=== PATIENT | female | born 1980 | race African-American/Black ===

== ENCOUNTER 2017-06-14 21:10 | Emergency (ER) | payer MEDICAID ==
[2017-06-14 21:19] VITALS: BP 135/87
[2017-06-15] MEDS ORDERED: PREDNISONE 20 MG TABLET PO ONE (00:16)
[2017-06-15] MEDS ORDERED: CLINDAMYCIN HCL 150 MG CAPSULE PO ONE (00:16)
--- NOTE | 2017-06-15 00:26 | ER Document Report ---
ED General - General Chief Complaint: Jaw Pain Stated Complaint: MOUTH PAIN Time Seen by Provider: 06/14/17 23:28 Notes: Patient is a 37-year-old female who presents with 2 weeks of left mandible pain. Does describe as a severe, constant, stabbing pain to the lower left mandible that is been getting worse since onset. She states that she also feels that there is an area of swelling just beneath the jaw to this region. She has not yet seen a dentist or primary care doctor regarding this concern. She denies any history of similar symptoms in the past. Nothing improves or worsens her pain. She denies any fever or constitutional symptoms. No difficulty breathing or swallowing. TRAVEL OUTSIDE OF THE [place] IN LAST 30 DAYS: No - Related Data Allergies/Adverse Reactions: Pork/Porcine Containing Products [Pork/Porcine Product Derivatives] Allergy ( Intermediate, Verified 06/14/17 22:41) Swelling of hands and/or feet No Known Drug Allergies Allergy (Verified 06/14/17 22:41) Past Medical History - General Information source: Patient - Social History Smoking Status: Former Smoker Chew tobacco use (# tins/day): No Frequency of alcohol use: None Drug Abuse: None Lives with: Family Family History: Reviewed & Not Pertinent Patient has suicidal ideation: No Patient has homicidal ideation: No - Past Medical History Cardiac Medical History: Reports: Hx Heart Attack - x1, "mild", Hx Pulmonary Embolism Renal/ Medical History: Denies: Hx Peritoneal Dialysis Past Surgical History: Reports: Hx Section - x1 - Immunizations Hx Diphtheria, Pertussis, Tetanus Vaccination: Yes Review of Systems - Review of Systems Notes: Constitutional: Negative for fever. HENT: Positive for jaw pain Eyes: Negative for visual changes. Cardiovascular: Negative for chest pain. Respiratory: Negative for shortness of breath. Gastrointestinal: Negative for abdominal pain, vomiting or diarrhea. Genitourinary: Negative for dysuria. Musculoskeletal: Negative for back pain. Skin: Negative for rash. Neurological: Negative for headaches, weakness or numbness. 10 point ROS negative except as marked above and in HPI. Physical Exam - Vital signs Vitals: Temp Pulse Resp BP Pulse Ox 98.1 F 70 16 135/87 H 98 06/14/17 21:16 06/14/17 21:16 06/14/17 21:16 06/14/17 21:16 06/14/17 21:16 Interpretation: Hypertensive Notes: PHYSICAL EXAMINATION: GENERAL: Well-appearing, well-nourished and in no acute distress. HEAD: Atraumatic, normocephalic. EYES: Pupils equal round and reactive to light, extraocular movements intact, sclera anicteric, conjunctiva are normal. ENT: nares patent, oropharynx clear without exudates. Moist mucous membranes. There is an impacted left lower wisdom tooth that appears infected NECK: Normal range of motion, supple without lymphadenopathy LUNGS: Breath sounds clear to auscultation bilaterally and equal. No wheezes rales or rhonchi. HEART: Regular rate and rhythm without murmurs ABDOMEN: Soft, nontender, normoactive bowel sounds. No guarding, no rebound. No masses appreciated. EXTREMITIES: Normal range of motion, no pitting or edema. No cyanosis. NEUROLOGICAL: No focal neurological deficits. Moves all extremities spontaneously and on command. PSYCH: Normal mood, normal affect. SKIN: Warm, Dry, normal turgor, no rashes or lesions noted. Course - Re-evaluation Re-evalutation: 06/15/17 00:22 Patient presents with what appears to be a single submandibular lymph node on the left that appears to be swollen. It is painful to palpation, mobile, and not significantly enlarged. I do not suspect acute malignancy. She does have an impacted wisdom tooth on the mandible on that side which appears to be infected and is possibly a source of this lymphadenopathy. She does not have any other obvious areas of lymphadenopathy. She has not had any weight loss. Vitals are within normal limits at time of presentation without fever, tachycardia or hypotension. I do not suspect a deep space abscess. Will start steroids and antibiotics, recommend dental follow-up and I have reviewed strict return precautions with the patient at length. - Vital Signs Vital signs: Temp Pulse Resp BP Pulse Ox 98.1 F 70 16 135/87 H 98 06/14/17 21:16 06/14/17 21:16 06/14/17 21:16 06/14/17 21:16 06/14/17 21:16 Discharge - Discharge Clinical Impression: Lymphadenopathy, Dental infection Condition: Good Disposition: HOME, SELF-CARE Additional Instructions: The area of swelling in you neck is a lymph node that is swollen likely due to an infected tooth. It does not appear to be related to cancer at this time. Take the antibiotics and steroids as prescribed. Please follow-up with the dentist at your earliest ability. Return for worsening pain, fever, weight loss , becoming unable to swallow, having difficulty breathing, or any other symptoms that are worrisome to you. Prescriptions: Clindamycin HCl 300 mg PO TID #30 capsule Prednisone [Deltasone 20 mg Tablet] 3 tab PO DAILY 5 Days tablet
[2017-06-15] MEDS ORDERED: IBUPROFEN 600 MG TABLET PO ONE (00:29)
== END 2017-06-15 00:55 | disposition home or self-care (01) ==
LOC: ER 21:10
DX: K04.7 Periapical abscess without sinus (principal); R59.0 Localized enlarged lymph nodes; K01.1 Impacted teeth; R68.84 Jaw pain; Z91.018 Allergy to other foods; Z87.891 Personal history of nicotine dependence; I25.2 Old myocardial infarction; Z86.711 Personal history of pulmonary embolism
CPT/HCPCS: 99283; J3490 ×2; J7512

== ENCOUNTER 2018-01-03 09:06 | Emergency (ER) | payer MEDICAID ==
[2018-01-03] MEDS ORDERED: ASPIRIN 81 MG TABLET, CHEWABLE PO ONE (09:31)
--- NOTE | 2018-01-03 10:06 | ER Document Report ---
ED Cardiac - General Chief Complaint: Chest Pain Stated Complaint: CHEST PAIN Time Seen by Provider: 01/03/18 09:36 Mode of Arrival: Ambulatory Information source: Patient TRAVEL OUTSIDE OF THE [place] IN LAST 30 DAYS: No - HPI Patient complains to provider of: Chest pain Notes: Patient is here with complaints of left posterior shoulder blade pain that radiates into her left anterior chest for the last 2 days. The pain is pleuritic in nature. It only hurts when she takes a deep breath. She does complain of feeling slightly short of breath. She denies any fever or cough. No nausea, vomiting, diarrhea. She denies any recent long trips, surgeries, trauma, leg pain or leg swelling, hormone use. She does have a former history of PE 2 in the past. She is currently not on anticoagulants. She states that her first pulmonary embolism was during bedrest and . Second time she had one was an unprovoked PE. She denies any abdominal pain at this time. No cough. She is a former smoker. She denies any history of high blood pressure, high cholesterol, diabetes, known CAD. She denies any other complaints at this time. - Related Data Allergies/Adverse Reactions: Pork/Porcine Containing Products [Pork/Porcine Product Derivatives] Allergy ( Intermediate, Verified 06/14/17 22:41) Swelling of hands and/or feet No Known Drug Allergies Allergy (Verified 06/14/17 22:41) Past Medical History - Social History Smoking Status: Unknown if Ever Smoked Family History: Reviewed & Not Pertinent - Past Medical History Cardiac Medical History: Reports: Hx Heart Attack - x1, "mild", Hx Pulmonary Embolism Renal/ Medical History: Denies: Hx Peritoneal Dialysis Past Surgical History: Reports: Hx Section - x1 - Immunizations Hx Diphtheria, Pertussis, Tetanus Vaccination: Yes Review of Systems - Review of Systems -: Yes All other systems reviewed and negative Physical Exam - Vital signs Vitals: Temp Pulse Resp BP Pulse Ox 98.5 F 65 16 121/74 100 01/03/18 09:12 01/03/18 09:12 01/03/18 09:12 01/03/18 09:12 01/03/18 09:12 - Notes Notes: GENERAL: alert, cooperative, nontoxic, no distress. HEAD: normocephalic, atraumatic EYES: conjunctiva pink without discharge, no external redness or swelling. EARS: no external swelling, no external redness NOSE: atraumatic, no external swelling MOUTH/THROAT: mucous membranes moist and pink, posterior pharynx without erythema, swelling, exudate. No trismus or drooling. NECK: soft, supple, full range of motion, no meningismus. CHEST: no distress, lungs clear and equal throughout. No wheezing, rales, rhonchi. CARDIAC: regular rate and rhythm, no murmur, normal capillary refill, normal pulses. No peripheral edema noted. ABDOMEN: Soft, nontender. BACK: full range of motion, no CVA tenderness. EXTREMITIES: full range of motion of all extremities. No redness, no swelling. NEURO: alert and oriented x 3, no focal deficits, full range of motion of all extremities. PYSCH: appropriate mood, affect. Patient is cooperative. SKIN: pink, warm, dry, no rash. Course - Re-evaluation Re-evalutation: 01/03/18 10:07 HEART SCORE: 1 points Low Score (0-3 points) Risk of MACE of 0.9-1.7%. 01/03/18 15:19 Patient is nontoxic appearing with stable vitals. Patient is here with complaints of left-sided posterior chest pain worse with taking a deep breath. Patient reports of prior history of PEs 2. She denies any recent trips or surgeries at this time. Patient has a heart score of 1. Her symptoms are very atypical for ACS. She has had 2 negative troponins and an unremarkable EKG. This point the patient can be discharged home with outpatient follow-up regarding chest pain. CTA of the chest shows no PE. No other acute abnormalities. Patient will follow up with her primary care doctor at the next available appointment, she was instructed to return the emergency department immediately for worsening pain, fever, difficulty breathing, or for any further concerns. The patient is noted to have elevated blood pressure during today's emergency department visit. The patient was informed of this finding. The patient was instructed that this may be related to pre-hypertension and requires further evaluation with a primary care provider. The patient has no hypertensive symptoms at this time. The patient's emergency department workup and current diagnosis were explained to the patient and or family. Follow-up instructions were provided. Medications if prescribed were discussed. Instructions for when to return to the emergency department including specific worrisome symptoms were discussed with the patient and/or family. - Vital Signs Vital signs: Temp Pulse Resp BP Pulse Ox 98.5 F 65 18 132/104 H 100 01/03/18 09:12 01/03/18 09:12 01/03/18 15:01 01/03/18 15:01 01/03/18 15:01 - Laboratory Result Diagrams: 01/03/18 10:14 01/03/18 10:14 Laboratory results interpreted by me: 01/03/18 10:14 RDW 14.1 H Plt Count 487 H - Diagnostic Test Radiology reviewed: Image reviewed, Reports reviewed - Chest x-ray negative. CTA of the chest negative. Discharge - Discharge Clinical Impression: Chest pain Qualifiers: Chest pain type: unspecified Qualified Code(s): R07.9 - Chest pain, unspecified Condition: Stable Disposition: HOME, SELF-CARE Instructions: Chest Pain of Unclear Cause ([facility]) Additional Instructions: Take medications as prescribed. Follow-up with your primary care doctor at the next available appointment for recheck. Follow-up sooner for worsening pain, fever, difficulty breathing, persistent vomiting, or for any further concerns. Your blood pressure was elevated during today's visit. Have this rechecked with your doctor. Prescriptions: Naproxen [Naprosyn] 500 mg PO BID #20 tablet Forms: Elevated Blood Pressure, Smoking Cessation Education Referrals: DARIAN FELICIANO DO [Primary Care Provider] - Follow up as needed
--- NOTE | 2018-01-03 10:09 | RADIOLOGY REPORT (SQ) ---
EXAM DESCRIPTION: CHEST SINGLE VIEW COMPLETED DATE/TIME: 01/03/2018 9:55 am REASON FOR STUDY: cp COMPARISON: 11/19/2014 EXAM PARAMETERS: NUMBER OF VIEWS: One view. TECHNIQUE: Single frontal radiographic view of the chest acquired. RADIATION DOSE: NA LIMITATIONS: None. FINDINGS: LUNGS AND PLEURA: No opacities, masses or pneumothorax. No pleural effusion. MEDIASTINUM AND HILAR STRUCTURES: No masses. Contour normal. HEART AND VASCULAR STRUCTURES: Heart normal in size. Normal vasculature. BONES: No acute findings. HARDWARE: None in the chest. OTHER: No other significant finding. IMPRESSION: NO ACUTE RADIOGRAPHIC FINDING IN THE CHEST. TECHNICAL DOCUMENTATION: JOB ID: [id number] [employer]- All Rights Reserved Reading location - IP/workstation name: [email or web address]
[2018-01-03 10:26] LABS: ABSOLUTE EOSINOPHILS # (AUTO) 0.1 10^3/uL (0.0-0.6); ABSOLUTE LYMPHOCYTES (AUTO) 1.3 10^3/uL (0.5-4.7); ABSOLUTE MONOCYTES (AUTO) 0.6 10^3/uL (0.1-1.4); ABSOLUTE NEUT (AUTO) 5.2 10^3/uL (1.7-8.2); BASOPHILS % (AUTO) 0.5 % (0-2); EOSINOPHILS % (AUTO) 0.9 % (0-6); HEMATOCRIT 36.6 % (36.0-47.0); HEMOGLOBIN 12.1 g/dL (12.0-15.5); LYMPHOCYTES % (AUTO) 17.9 % (13-45); MEAN CORPUSCULAR HEMOGLOBIN 29.9 pg (27.0-33.4); MEAN CORPUSCULAR VOLUME 91 fl (80-97); MONOCYTES % (AUTO) 8.1 % (3-13); PLATELET COUNT 487 10^3/uL (150-450); RED BLOOD COUNT 4.04 10^6/uL (3.72-5.28); RED CELL DISTRIBUTION WIDTH 14.1 % (11.5-14.0); SEGMENTED NEUTROPHILS % (AUTO) 72.6 % (42-78); TOTAL CELLS COUNTED % (AUTO) 100 %; WHITE BLOOD COUNT 7.2 10^3/uL (4.0-10.5)
[2018-01-03 10:38] LABS: ALANINE AMINOTRANSFERASE 16 U/L (9-52); ALBUMIN 4.1 g/dL (3.5-5.0); ALKALINE PHOSPHATASE 71 U/L (38-126); ANION GAP 10 (5-19); ASPARTATE AMINO TRANSFERASE 17 U/L (14-36); BILIRUBIN,DIRECT 0.2 mg/dL (0.0-0.4); BILIRUBIN,TOTAL 0.2 mg/dL (0.2-1.3); BLOOD UREA NITROGEN 10 mg/dL (7-20); CALCIUM 9.5 mg/dL (8.4-10.2); CARBON DIOXIDE 26 mmol/L (22-30); CHLORIDE 105 mmol/L (98-107); CREATINE KINASE 98 U/L (30-135); GLUCOSE 90 mg/dL (75-110); POTASSIUM 4.4 mmol/L (3.6-5.0); SODIUM 140.8 mmol/L (137-145); TOTAL PROTEIN 6.8 g/dL (6.3-8.2)
[2018-01-03 10:49] LABS: CREATINE KINASE MB 0.22 ng/mL (<4.55)
[2018-01-03 10:50] LABS: TROPONIN I < 0.012 ng/mL
--- NOTE | 2018-01-03 11:50 | RADIOLOGY REPORT (SQ) ---
EXAM DESCRIPTION: CTA CHEST COMPLETED DATE/TIME: 01/03/2018 11:29 am REASON FOR STUDY: cp, hx of pe x 2, no anticoags now chest pain COMPARISON: CT angio chest 07/11/2007, 11/17/2007, 01/26/2008 Chest films 10/28/2012, 01/03/2018 TECHNIQUE: CT scan of the chest performed using helical scanning technique with dynamic intravenous contrast injection. Images reviewed with lung, soft tissue and bone windows. Reconstructed coronal and sagittal MPR images reviewed. Additional 3 dimensional post-processing performed to develop Maximal Intensity Projection images (PR P). All images stored on PACS. All CT scanners at this facility use dose modulation, iterative reconstruction, and/or weight based d osing when appropriate to reduce radiation dose to as low as reasonably achievable (ALARA). [facility]: Dose Right [facility]: CareDose [facility]: Dose Right [facility]: Teradose 4D [facility]: MobiMagic CONTRAST TYPE AND DOSE: contrast/concentration: Isovue 370.00 mg/ml; Total Contrast Delivered: 79.0 ml; Total Saline Delivered: 90.0 ml Contrast bolus adequate for pulmonary arteries and aorta. RENAL FUNCTION: Creatinine 0.6 RADIATION DOSE: 36.83 . LIMITATIONS: None. FINDINGS: LUNGS AND PLEURA: No masses, infiltrates, pneumothorax. No pleural effusions, calcificati ons. AORTA AND GREAT VESSELS: No aneurysm. Contrast bolus not optimized for the aorta. HEART: No pericardial effusion. No significant coronary artery calcifications. PULMONARY ARTERIES: No emboli visualized in the main pulmonary arteries or the segmental branches. HILAR AND MEDIASTINAL STRUCTURES: No identified masses or abnormal nodes. HARDWARE: None in the chest. UPPER ABDOMEN: No significant findings. Limited exam. THYROID AND OTHER SOFT TISSUES: No masses. No adenopathy. BONES: No acute or significant finding. 3D MIPS: Confirm above findings. OTHER: No other significant finding. IMPRESSION: NORMAL CTA OF THE CHEST. NO PULMONARY EMBOLI. COMMENT: Quality ID # [id number]: Final reports with documentation of one or more dose reduction techniques (e.g., Automated exposure control, adjustment of the mA and/or kV according to patient size, use of iterative reconstruction technique) TECHNICAL DOCUMENTATION: JOB ID: [id number] [employer]- All Rights Reserved Reading location - IP/workstation name: [email or web address]
[2018-01-03] MEDS ORDERED: KETOROLAC TROMETHAMINE INJ/PF 30 MG/1 ML SDV IV ONE (12:37)
--- NOTE | 2018-01-03 12:49 | EKG REPORT ---
SEVERITY:- NORMAL ECG - SINUS RHYTHM : Confirmed by: Abner Nazario MD 03-Jan-2018 12:48:55
[2018-01-03 15:36] VITALS: BP 116/91
== END 2018-01-03 15:37 | disposition home or self-care (01) ==
LOC: ER 09:06
DX: R07.81 Pleurodynia (principal); M89.8X1 Other specified disorders of bone, shoulder; R06.02 Shortness of breath; R03.0 Elevated blood-pressure reading, without diagnosis of hypertension; I25.2 Old myocardial infarction; Z86.711 Personal history of pulmonary embolism; Z87.891 Personal history of nicotine dependence; Z91.018 Allergy to other foods
CPT/HCPCS: 93005; 99285; 96374; 36415; 82553; 82550; 85025; 80053; 84484; 71045; 71275; 93010; J1885

== ENCOUNTER 2018-02-23 15:39 | Emergency (ER) | payer MEDICAID ==
[2018-02-23] MEDS ORDERED: IBUPROFEN 800 MG TABLET PO ONE (16:27)
--- NOTE | 2018-02-23 16:28 | ER Document Report ---
ED Hand/Wrist Injury - General Chief Complaint: Hand Injury Stated Complaint: HAND INJURY Time Seen by Provider: 02/23/18 16:00 Mode of Arrival: Ambulatory Information source: Patient Notes: 38-year-old female presented ED for complaint of left hand and fingers pain after she was moving a [place] cabinet and it fell backwards catching her hand between the wall and the [place] cabinet. She states that this injury was yesterday but her hand is still hurting. Patient has full range of motion to the hand. But does complain of pain with movement. TRAVEL OUTSIDE OF THE [place] IN LAST 30 DAYS: No - HPI Injury to: Hand - And fingers Onset: Yesterday Where: Home, Indoors Timing: Still present Quality of pain: Achy, Pressure Severity: Moderate Pain Level: 3 Context: Other - States she cut the hand between the [place] cabinet in the wall - Related Data Allergies/Adverse Reactions: Pork/Porcine Containing Products [Pork/Porcine Product Derivatives] Allergy ( Intermediate, Verified 02/23/18 15:40) Swelling of hands and/or feet No Known Drug Allergies Allergy (Verified 02/23/18 15:40) Past Medical History - General Information source: Patient - Social History Smoking Status: Former Smoker Cigarette use (# per day): No Chew tobacco use (# tins/day): No Smoking Education Provided: No Frequency of alcohol use: None Drug Abuse: None Lives with: Alone - With children Family History: Reviewed & Not Pertinent Patient has suicidal ideation: No Patient has homicidal ideation: No - Past Medical History Cardiac Medical History: Reports: Hx Heart Attack - x1, "mild", Hx Pulmonary Embolism Pulmonary Medical History: Reports: None EENT Medical History: Reports: None Neurological Medical History: Reports: None Endocrine Medical History: Reports: None Renal/ Medical History: Reports: None Malignancy Medical History: Reports: None GI Medical History: Reports: None Musculoskeltal Medical History: Reports None Skin Medical History: Reports None Psychiatric Medical History: Reports: None Traumatic Medical History: Reports: None Infectious Medical History: Reports: None Past Surgical History: Reports: Hx Section - x1 - Immunizations Hx Diphtheria, Pertussis, Tetanus Vaccination: Yes Review of Systems - Review of Systems Constitutional: No symptoms reported EENT: No symptoms reported Cardiovascular: No symptoms reported Respiratory: No symptoms reported Gastrointestinal: No symptoms reported Genitourinary: No symptoms reported Female Genitourinary: No symptoms reported Musculoskeletal: Other - Pain and swelling to the left hand and fingers Skin: No symptoms reported Hematologic/Lymphatic: No symptoms reported Neurological/Psychological: No symptoms reported Physical Exam - Vital signs Vitals: Temp Pulse Resp BP Pulse Ox 98.3 F 68 18 140/95 H 97 02/23/18 15:48 02/23/18 15:48 02/23/18 15:48 02/23/18 15:48 02/23/18 15:48 Interpretation: Normal - General General appearance: Appears well, Alert - HEENT Head: Normocephalic, Atraumatic Eyes: Normal Pupils: PERRL - Respiratory Respiratory status: No respiratory distress Chest status: Nontender Breath sounds: Normal Chest palpation: Normal - Cardiovascular Rhythm: Regular Heart sounds: Normal auscultation Murmur: No - Abdominal Inspection: Normal Distension: No distension Bowel sounds: Normal Tenderness: Nontender Organomegaly: No organomegaly - Back Back: Normal, Nontender - Extremities General upper extremity: Normal color, Normal ROM, Normal temperature General lower extremity: Normal inspection, Nontender, Normal color, Normal ROM , Normal temperature, Normal weight bearing. No: Bo's sign Wrist: Tender. No: Abrasion, Axial load of thumb pain, Deformity, Dislocation, Ecchymosis, Instability, Laceration, Limited ROM - Pain with range of motion, Navicular tenderness Hand: Tender, No evidence of human bite, No evidence of FB, Swelling. No: Abrasion, Deformity, Dislocation, Ecchymosis, Instability, Laceration, Nail injury, Tendon deficit - Neurological Neuro grossly intact: Yes Cognition: Normal Orientation: AAOx4 [place] Coma Scale Eye Opening: Spontaneous [place] Coma Scale Verbal: Oriented [place] Coma Scale Motor: Obeys Commands [place] Coma Scale Total: 15 Speech: Normal Motor strength normal: LUE, RUE, LLE, RLE Sensory: Normal - Psychological Associated symptoms: Normal affect, Normal mood - Skin Skin Temperature: Warm Skin Moisture: Dry Skin Color: Normal Course - Re-evaluation Re-evalutation: 02/23/18 21:28 X-rays discussed with patient and written report of x-rays given to patient to follow-up with orthopedics and her primary doctor. Patient had radial pulses present with cap refills less than 3 seconds. Patient was able to move all of her fingers and her hand but with some pain. Patient did not have any snuffbox tenderness. - Vital Signs Vital signs: Temp Pulse Resp BP Pulse Ox 98.3 F 68 18 131/58 H 97 02/23/18 15:48 02/23/18 15:48 02/23/18 15:48 02/23/18 18:00 02/23/18 15:48 - Diagnostic Test Radiology reviewed: Image reviewed, Reports reviewed Procedures - Immobilization Left Wrist Time completed: 17:45 Immobilizer type: Cock-up Performed by: PCT Post-Proc Neuro Vasc Exam: Normal Alignment checked and good: Yes Discharge - Discharge Clinical Impression: Contusion of multiple sites of left hand and wrist Qualifiers: Encounter type: initial encounter Qualified Code(s): S60.222A - Contusion of left hand, initial encounter Condition: Stable Disposition: HOME, SELF-CARE Additional Instructions: CONTUSION: Your injury has resulted in a contusion -- a crushing of the deep tissues. No injury to important structures was detected during the physician's exam. Contusions vary in the amount of pain they cause, and in the length of time required for healing. Typically, the area will become bruised, and will remain painful to touch for two or three weeks. However, most patients are back to working and playing within a few days. After the initial period of rest and cold-packs, your symptoms (together with the doctor's recommendations) will determine how rapidly you can get back to full activity. Usually this means "do what feels okay, but don't do things that hurt." If re-examination was recommended, it's important to follow up as instructed. Call the doctor or return any time if pain increases, if swelling becomes severe, if you develop numbness or weakness in an injured extremity, or if any other alarming symptoms occur. USE OF TYLENOL (ACETAMINOPHEN): Acetaminophen may be taken for pain relief or fever control. It's much safer than aspirin, offering a wider range of "safe" dosages. It is safe during . Some brand names are Tylenol, Panadol, Datril, Anacin 3, Tempra, and Liquiprin. Acetaminophen can be repeated every four hours. The following are maximum recommended dosages: WEIGHT Dose Drops Elixir Chewable( 80mg) (LBS.) drprs=droppers tsp=teaspoon 6 40 mg 0.4 ml (1/2) 6-11 80 mg 0.8 ml (full) tsp 1 tab 12-16 120 mg 1 1/2 drprs 3/4 tsp 1 1/2 tabs 17-23 160 mg 2 drprs 1 tsp 2 tabs 24-30 240 mg 3 drprs 1 1/2 tsp 3 tabs 30-35 320 mg 2 tsp 4 tabs 36-41 360 mg 2 1/4 tsp 4 1/2 tabs 42-47 400 mg 2 1/2 tsp 5 tabs 48-53 480 mg 3 tsp 6 tabs 54-59 520 mg 3 1/4 tsp 6 1/2 tabs 60-64 560 mg 3 1/2 tsp 7 tabs 65-70 600 mg 3 3/4 tsp 7 1/2 tabs 71-76 640 mg 4 tsp 8 tabs 77-82 720 mg 4 1/2 tsp 9 tabs 83-88 800 mg 5 tsp 10 tabs >89 pounds or adults 650 mg to 900 mg Acetaminophen can be repeated every four hours. Maximum dose not to exceed 4000 mg a day. These maximum recommended dosages are slightly higher than the dosages written on the product container, but these dosages are very safe and below the toxic dosage for acetaminophen. SPLINT PRECAUTIONS: A splint has been placed. This will protect the area while healing begins. Your problem does NOT normally require a cast. It MUST, however, be held still! Keep the splint on ALL THE TIME until instructed to remove it by the doctor. As you begin to use the area, be careful. You shouldn't do anything which causes discomfort -- you may disturb the injury even with the splint in place. After the initial period of rest and elevation, if splint does not prevent pain when you move, come back. You may require placement of a different splint , or a cast. If there is unexpected severe pain, or numbness, discoloration, or swelling beyond the splint, you should return at once. If you feel that the splint has broken or become loose, come back. ICE & ELEVATION: Apply ice packs frequently against the painful area. Many different schedules are recommended, such as "20 minutes on, 20 minutes off" or "one hour ice, two hours rest." If you need to work, you may need to go longer between ice treatments. You should plan to have the area ice packed AT LEAST one- fourth of the time. The ice should be applied over the wrap, tape, or splint, or over a layer of cloth -- not directly against the skin. Some ice bags have a built-in cloth and can be put directly on the skin. Your injured part should be elevated as much as possible over the next 48 hours. Try to keep the injury above the level of the heart. Avoid use of the injured area. Elevation and rest will decrease the swelling. USE OF [id number] IBUPROFEN: Ibuprofen (Advil, Nuprin, Medipren, Motrin IB) is a medication for fever and pain control. In addition, it has anti- inflammatory effects which may be beneficial, especially in the treatment of injuries. It's best to take ibuprofen with food. Persons with ulcer disease or allergy to aspirin should notify their physician of this before taking ibuprofen. Ibuprofen can be given every four to six hours, for a total of four doses daily. Age Pain or fever dose Antiinflammatory dose 6-8 yr 200 mg (1 tab) 200 mg (1 tab) 9-11 yr 200 mg (1 tab) 200-400 mg (1-2 tab) 11-14 yr 200-400 mg (1-2 tab) 400 mg (2 tab) 15-adult 400 mg (2 tab) 600 mg (3 tab) FOLLOW-UP CARE: If you have been referred to a physician for follow-up care, call the physician s office for an appointment as you were instructed or within the next two days. If you experience worsening or a significant change in your symptoms, notify the physician immediately or return to the Emergency Department at any time for re-evaluation. Forms: Elevated Blood Pressure, Return to Work Referrals: DARIAN FELICIANO DO [Primary Care Provider] - Follow up as needed LEANDRO SUÁREZ MD [ACTIVE STAFF] - Follow up as needed
--- NOTE | 2018-02-23 17:05 | RADIOLOGY REPORT (SQ) ---
EXAM DESCRIPTION: HAND LEFT 3 VIEWS COMPLETED DATE/TIME: 02/23/2018 4:44 pm REASON FOR STUDY: pain and injury hand and wrist COMPARISON: 02/04/2015. EXAM PARAMETERS: NUMBER OF VIEWS: Three views. TECHNIQUE: AP, lateral and oblique radiographic images acquired of the left hand. LIMITATIONS: None. FINDINGS: MINERALIZATION: Normal. BONES: No acute fracture or dislocation. No worrisome bone lesions. JOINTS: No effusions. SOFT TISSUES: No soft tissue swelling. No foreign body. OTHER: No other significant finding. IMPRESSION: NEGATIVE STUDY OF THE LEFT HAND. NO RADIOGRAPHIC EVIDENCE OF ACUTE INJURY. TECHNICAL DOCUMENTATION: JOB ID: [id number] [employer]- All Rights Reserved Reading location - IP/workstation name: [email or web address]
--- NOTE | 2018-02-23 17:05 | RADIOLOGY REPORT (SQ) ---
EXAM DESCRIPTION: WRIST LEFT 3 VIEWS COMPLETED DATE/TIME: 02/23/2018 4:44 pm REASON FOR STUDY: pain and injury hand and wrist COMPARISON: 02/04/2015. NUMBER OF VIEWS: Three views. TECHNIQUE: AP, lateral, and oblique radiographic images acquired of the left wrist. LIMITATIONS: None. FINDINGS: MINERALIZATION: Normal. BONES: No acute fracture or dislocation. No worrisome bone lesions. Normal alignment. SOFT TISSUES: No soft tissue swelling. No foreign body. OTHER: No other significant finding. IMPRESSION: NEGATIVE STUDY OF THE LEFT WRIST. NO RADIOGRAPHIC EVIDENCE OF ACUTE INJURY. TECHNICAL DOCUMENTATION: JOB ID: [id number] [employer]- All Rights Reserved Reading location - IP/workstation name: [email or web address]
[2018-02-23 18:00] VITALS: BP 131/58
== END 2018-02-23 18:00 | disposition home or self-care (01) ==
LOC: ER 15:39
DX: S60.222A Contusion of left hand, initial encounter (principal); M79.642 Pain in left hand; M79.645 Pain in left finger(s); W23.0XXA Caught, crushed, jammed, or pinched between moving objects, initial encounter; Z87.891 Personal history of nicotine dependence
CPT/HCPCS: 99283; 73130; 73110; L3908; J3490

== ENCOUNTER 2018-04-19 11:11 | Emergency (ER) | payer MEDICAID ==
[2018-04-19 11:57] VITALS: BP 126/84
[2018-04-19] MEDS ORDERED: KETOROLAC TROMETHAMINE 60 MG/2 ML SDV IM ONE (13:20)
--- NOTE | 2018-04-19 13:28 | ER Document Report ---
ED Hand/Wrist Injury - General Chief Complaint: Finger Injury Stated Complaint: FINGER PAIN Time Seen by Provider: 04/19/18 13:11 Mode of Arrival: Ambulatory Information source: Patient Notes: 38-year-old female presents to ED for complaint of pain to her right index finger pain. She states about 8:00 this morning she dropped a couch on her hand while she was doing cleaning. She states she has not been able to get the ring off due to it being bent and that now the finger is swollen and painful. She has good cap refill to the finger. We were able to get the ring off of the finger. Patient is alert and oriented respirations regular and unlabored speaking in full sentences. TRAVEL OUTSIDE OF THE [place] IN LAST 30 DAYS: No - HPI Injury to: Ring finger Onset: This morning Quality of pain: Sharp, Throbbing Severity: Moderate Pain Level: 4 Context: Other - Patient dropped a couch on her finger - Related Data Allergies/Adverse Reactions: Pork/Porcine Containing Products [Pork/Porcine Product Derivatives] Allergy ( Intermediate, Verified 04/19/18 11:29) Swelling of hands and/or feet No Known Drug Allergies Allergy (Verified 04/19/18 11:29) Past Medical History - General Information source: Patient - Social History Smoking Status: Former Smoker Cigarette use (# per day): No Chew tobacco use (# tins/day): No Smoking Education Provided: No Frequency of alcohol use: None Drug Abuse: None Lives with: Alone - Children Family History: Reviewed & Not Pertinent Patient has suicidal ideation: No Patient has homicidal ideation: No - Past Medical History Cardiac Medical History: Reports: Hx Heart Attack - x1, "mild", Hx Pulmonary Embolism Pulmonary Medical History: Reports: None EENT Medical History: Reports: None Neurological Medical History: Reports: None Endocrine Medical History: Reports: None Renal/ Medical History: Reports: None Malignancy Medical History: Reports: None GI Medical History: Reports: None Musculoskeletal Medical History: Reports None Skin Medical History: Reports None Psychiatric Medical History: Reports: None Traumatic Medical History: Reports: None Infectious Medical History: Reports: None Past Surgical History: Reports: Hx Section - x1 - Immunizations Hx Diphtheria, Pertussis, Tetanus Vaccination: Yes Review of Systems - Review of Systems Constitutional: No symptoms reported EENT: No symptoms reported Cardiovascular: No symptoms reported Respiratory: No symptoms reported Gastrointestinal: No symptoms reported Genitourinary: No symptoms reported Female Genitourinary: No symptoms reported Musculoskeletal: Other - Pain to the right index finger where a couch fell on her finger when she had a ring on the ring was bent the ring was stuck on her finger we did remove the ring and give it to the patient Skin: No symptoms reported Hematologic/Lymphatic: No symptoms reported Neurological/Psychological: No symptoms reported Physical Exam - Vital signs Vitals: Temp Pulse Resp BP Pulse Ox 98.6 F 64 16 126/84 H 100 04/19/18 11:55 04/19/18 11:55 04/19/18 11:55 04/19/18 11:55 04/19/18 11:55 Interpretation: Normal - General General appearance: Appears well, Alert - HEENT Head: Normocephalic, Atraumatic Eyes: Normal Pupils: PERRL - Respiratory Respiratory status: No respiratory distress Chest status: Nontender Breath sounds: Normal Chest palpation: Normal - Cardiovascular Rhythm: Regular Heart sounds: Normal auscultation Murmur: No - Abdominal Inspection: Normal Distension: No distension Bowel sounds: Normal Tenderness: Nontender Organomegaly: No organomegaly - Back Back: Normal, Nontender - Extremities General upper extremity: Normal inspection, Nontender, Normal color, Normal ROM , Normal temperature General lower extremity: Normal inspection, Nontender, Normal color, Normal ROM , Normal temperature, Normal weight bearing. No: Bo's sign - Neurological Neuro grossly intact: Yes Cognition: Normal Orientation: AAOx4 [place] Coma Scale Eye Opening: Spontaneous [place] Coma Scale Verbal: Oriented [place] Coma Scale Motor: Obeys Commands [place] Coma Scale Total: 15 Speech: Normal Motor strength normal: LUE, RUE, LLE, RLE Sensory: Normal - Psychological Associated symptoms: Normal affect, Normal mood - Skin Skin Temperature: Warm Skin Moisture: Dry Skin Color: Normal Course - Re-evaluation Re-evalutation: 04/19/18 20:18 To discuss with patient and written report given to patient. Patient was treated with Toradol in the emergency G room and instructed to use ibuprofen at home. Patient states she would use her own ibuprofen she did not need a prescription for it. Patient was discharged home to follow-up with her primary doctor. When she came in she did have rings on this hand. All of the rings were removed and given to the patient. - Vital Signs Vital signs: Temp Pulse Resp BP Pulse Ox 98.6 F 64 16 126/84 H 100 04/19/18 11:55 04/19/18 11:55 04/19/18 11:55 04/19/18 11:55 04/19/18 11:55 - Diagnostic Test Radiology reviewed: Image reviewed, Reports reviewed Discharge - Discharge Clinical Impression: Contusion of right ring finger Qualifiers: Encounter type: initial encounter Damage to nail status: without damage Qualified Code(s): S60.041A - Contusion of right ring finger without damage to nail, initial encounter Condition: Stable Disposition: HOME, SELF-CARE Additional Instructions: CONTUSION: Your injury has resulted in a contusion -- a crushing of the deep tissues. No injury to important structures was detected during the physician's exam. Contusions vary in the amount of pain they cause, and in the length of time required for healing. Typically, the area will become bruised, and will remain painful to touch for two or three weeks. However, most patients are back to working and playing within a few days. After the initial period of rest and cold-packs, your symptoms (together with the doctor's recommendations) will determine how rapidly you can get back to full activity. Usually this means "do what feels okay, but don't do things that hurt." If re-examination was recommended, it's important to follow up as instructed. Call the doctor or return any time if pain increases, if swelling becomes severe, if you develop numbness or weakness in an injured extremity, or if any other alarming symptoms occur. USE OF TYLENOL (ACETAMINOPHEN): Acetaminophen may be taken for pain relief or fever control. It's much safer than aspirin, offering a wider range of "safe" dosages. It is safe during . Some brand names are Tylenol, Panadol, Datril, Anacin 3, Tempra, and Liquiprin. Acetaminophen can be repeated every four hours. The following are maximum recommended dosages: WEIGHT Dose Drops Elixir Chewable( 80mg) (LBS.) drprs=droppers tsp=teaspoon 6 40 mg 0.4 ml (1/2) 6-11 80 mg 0.8 ml (full) tsp 1 tab 12-16 120 mg 1 1/2 drprs 3/4 tsp 1 1/2 tabs 17-23 160 mg 2 drprs 1 tsp 2 tabs 24-30 240 mg 3 drprs 1 1/2 tsp 3 tabs 30-35 320 mg 2 tsp 4 tabs 36-41 360 mg 2 1/4 tsp 4 1/2 tabs 42-47 400 mg 2 1/2 tsp 5 tabs 48-53 480 mg 3 tsp 6 tabs 54-59 520 mg 3 1/4 tsp 6 1/2 tabs 60-64 560 mg 3 1/2 tsp 7 tabs 65-70 600 mg 3 3/4 tsp 7 1/2 tabs 71-76 640 mg 4 tsp 8 tabs 77-82 720 mg 4 1/2 tsp 9 tabs 83-88 800 mg 5 tsp 10 tabs >89 pounds or adults 650 mg to 900 mg Acetaminophen can be repeated every four hours. Maximum dose not to exceed 4000 mg a day. These maximum recommended dosages are slightly higher than the dosages written on the product container, but these dosages are very safe and below the toxic dosage for acetaminophen. ICE & ELEVATION: Apply ice packs frequently against the painful area. Many different schedules are recommended, such as "20 minutes on, 20 minutes off" or "one hour ice, two hours rest." If you need to work, you may need to go longer between ice treatments. You should plan to have the area ice packed AT LEAST one- fourth of the time. The ice should be applied over the wrap, tape, or splint, or over a layer of cloth -- not directly against the skin. Some ice bags have a built-in cloth and can be put directly on the skin. Your injured part should be elevated as much as possible over the next 48 hours. Try to keep the injury above the level of the heart. Avoid use of the injured area. Elevation and rest will decrease the swelling. USE OF [id number]-MPICLIO IBUPROFEN: Ibuprofen (Advil, Nuprin, Medipren, Motrin IB) is a medication for fever and pain control. In addition, it has anti- inflammatory effects which may be beneficial, especially in the treatment of injuries. It's best to take ibuprofen with food. Persons with ulcer disease or allergy to aspirin should notify their physician of this before taking ibuprofen. Ibuprofen can be given every four to six hours, for a total of four doses daily. Age Pain or fever dose Antiinflammatory dose 6-8 yr 200 mg (1 tab) 200 mg (1 tab) 9-11 yr 200 mg (1 tab) 200-400 mg (1-2 tab) 11-14 yr 200-400 mg (1-2 tab) 400 mg (2 tab) 15-adult 400 mg (2 tab) 600 mg (3 tab) FOLLOW-UP CARE: If you have been referred to a physician for follow-up care, call the physician s office for an appointment as you were instructed or within the next two days. If you experience worsening or a significant change in your symptoms, notify the physician immediately or return to the Emergency Department at any time for re-evaluation. Forms: Elevated Blood Pressure Referrals: DARIAN FELICIANO DO [Primary Care Provider] - Follow up as needed
--- NOTE | 2018-04-19 14:09 | RADIOLOGY REPORT (SQ) ---
EXAM DESCRIPTION: HAND RIGHT 3 VIEWS COMPLETED DATE/TIME: 04/19/2018 1:49 pm REASON FOR STUDY: pain and injury COMPARISON: 10/01/2013 EXAM PARAMETERS: NUMBER OF VIEWS: Three views. TECHNIQUE: AP, lateral and oblique radiographic images acquired of the right hand. LIMITATIONS: None. FINDINGS: MINERALIZATION: Normal. BONES: No acute fracture or dislocation. No worrisome bone lesions. JOINTS: No effusions. SOFT TISSUES: No soft tissue swelling. No foreign body. OTHER: No other significant finding. IMPRESSION: NEGATIVE STUDY OF THE RIGHT HAND. NO RADIOGRAPHIC EVIDENCE OF ACUTE INJURY. TECHNICAL DOCUMENTATION: JOB ID: [id number] [employer]- All Rights Reserved Reading location - IP/workstation name: [email or web address]
== END 2018-04-19 14:20 | disposition home or self-care (01) ==
LOC: ER 11:11
DX: S60.041A Contusion of right ring finger without damage to nail, initial encounter (principal); M79.644 Pain in right finger(s); W20.8XXA Other cause of strike by thrown, projected or falling object, initial encounter; I25.2 Old myocardial infarction; Z86.711 Personal history of pulmonary embolism; Z87.891 Personal history of nicotine dependence
CPT/HCPCS: 99283; 96372; 73130; J1885

== ENCOUNTER 2018-05-05 20:33 | Emergency (ER) | payer MEDICAID ==
--- NOTE | 2018-05-05 20:55 | EKG REPORT ---
SEVERITY:- BORDERLINE ECG - SINUS RHYTHM PROBABLE LEFT ATRIAL ABNORMALITY : Confirmed by: David Wells 05-May-2018 20:54:44
[2018-05-05] MEDS ORDERED: NORMAL SALINE 1000 ML 1,000 ML IV ONE (21:48)
[2018-05-05] MEDS ORDERED: MORPHINE SULFATE 10 MG/ML INJ IV ONE (21:48)
--- NOTE | 2018-05-05 21:51 | ER Document Report ---
ED Cardiac - General TRAVEL OUTSIDE OF THE [place] IN LAST 30 DAYS: No - HPI Patient complains to provider of: Chest pain, Shortness of breath Was the onset of pain: Gradual Is the pain a: New problem Chest pain location: Axillary, Pleuritic Quality of pain: Pressure, Sharp, Stabbing Severity now: Severe Severity at worst: Severe Pain level currently: 5 Chest pain precipitating factors: At Rest Positive cardiac history: No Associated symptoms: Shortness of breath Exacerbated by: Deep breaths Relieved by: Nothing Similar symptoms previously: Yes Recently seen / treated by doctor: No <SELENA RICE - Last Filed: 05/06/18 00:27> <CHRISTIANO WINN - Last Filed: 05/06/18 02:14> - General Chief Complaint: Chest Pain Stated Complaint: CHEST PAIN Time Seen by Provider: 05/05/18 21:42 - HPI Notes: Patient is a 38-year-old female presenting to the emergency room today complaining of sharp left-sided chest pain of 3 days duration, symptoms are worse when she takes a deep breath and are reminiscent of when she had a pulmonary embolus in 2006, this occurred when she was and on bed rest, she is not currently , denies smoking, she does not take any oral hormone therapy, no recent surgeries, injuries or periods of immobilization, she is not currently on any blood thinners (SELENA RICE) - Related Data Allergies/Adverse Reactions: Pork/Porcine Containing Products [Pork/Porcine Product Derivatives] Allergy ( Intermediate, Verified 04/19/18 11:29) Swelling of hands and/or feet No Known Drug Allergies Allergy (Verified 04/19/18 11:29) Past Medical History - General Information source: Patient - Social History Smoking Status: Never Smoker Family History: Reviewed & Not Pertinent - Past Medical History Cardiac Medical History: Reports: Hx Heart Attack - x1, "mild", Hx Pulmonary Embolism Renal/ Medical History: Denies: Hx Peritoneal Dialysis Past Surgical History: Reports: Hx Section - x1 - Immunizations Hx Diphtheria, Pertussis, Tetanus Vaccination: Yes <SELENA RICE - Last Filed: 05/06/18 00:27> Review of Systems - Review of Systems Constitutional: No symptoms reported EENT: No symptoms reported Cardiovascular: Chest pain Respiratory: Short of breath Gastrointestinal: No symptoms reported Genitourinary: No symptoms reported Female Genitourinary: No symptoms reported Musculoskeletal: No symptoms reported Skin: No symptoms reported Hematologic/Lymphatic: No symptoms reported Neurological/Psychological: No symptoms reported -: Yes All other systems reviewed and negative <SELENA RICE - Last Filed: 05/06/18 00:27> Physical Exam - Vital signs Interpretation: Normal - General General appearance: Appears well, Alert - HEENT Head: Normocephalic, Atraumatic Eyes: Normal Pupils: PERRL - Respiratory Respiratory status: No respiratory distress Chest status: Tender - to palpate left lateral chest wall Breath sounds: Normal Chest palpation: Normal - Cardiovascular Rhythm: Regular Heart sounds: Normal auscultation Murmur: No - Abdominal Inspection: Normal Distension: No distension Bowel sounds: Normal Tenderness: Nontender Organomegaly: No organomegaly - Back Back: Normal, Nontender - Extremities General upper extremity: Normal inspection, Nontender, Normal color, Normal ROM , Normal temperature General lower extremity: Normal inspection, Nontender, Normal color, Normal ROM , Normal temperature, Normal weight bearing. No: Bo's sign - Neurological Neuro grossly intact: Yes Cognition: Normal Orientation: AAOx4 Marlen Coma Scale Eye Opening: Spontaneous Marlen Coma Scale Verbal: Oriented Marlen Coma Scale Motor: Obeys Commands [place] Coma Scale Total: 15 Speech: Normal Motor strength normal: LUE, RUE, LLE, RLE Sensory: Normal - Psychological Associated symptoms: Normal affect, Normal mood - Skin Skin Temperature: Warm Skin Moisture: Dry Skin Color: Normal <SELENA RICE - Last Filed: 05/06/18 00:27> - Vital signs Vitals: BP 115/61 05/05/18 18:59 Course - Laboratory Result Diagrams: 05/05/18 22:30 05/05/18 22:30 - EKG Interpretation by [facility] EKG shows normal: Sinus rhythm Rate: Normal Rhythm: NSR <SELENA RICE - Last Filed: 05/06/18 00:27> - Laboratory Result Diagrams: 05/05/18 22:30 05/05/18 23:31 <CHRISTIANO WINN - Last Filed: 05/06/18 02:14> - Re-evaluation Re-evalutation: 05/06/18 00:[address] Winn, pending lab and CTA results (SELENA RICE) 05/06/18 02:12 Patient is a 38-year-old female who came in complaining of reproducible left chest wall pain that is worse with movement and deep breathing. Patient has a history of PE. CT is not showing any evidence for pulmonary embolus or pneumonia. CT was read as small pleural effusions. On reviewing CT, this does not seem to be significant. EKG within normal limits. Troponin is negative. Patient has reproducible chest pain on reevaluation that is worse with movement. She takes photographs for living. Patient was given pain medication and has had some relief. She will be discharged home with Lidoderm patches, Flexeril, and a work note. Of note, patient was slightly hypokalemic. Offered to give potassium. Patient states that she will eat bananas and high potassium foods when she gets home. She is mostly concerned about her chest pain and that it was something dangerous. She will follow up with her primary care doctor. Stable for discharge. Return if any worsening or concerning symptoms. Understands and agrees with plan. (CHRISTIANO WINN) - Vital Signs Vital signs: Temp Pulse Resp BP Pulse Ox 98.4 F 72 14 122/89 H 99 05/05/18 20:53 05/05/18 20:53 05/06/18 01:01 05/06/18 01:01 05/06/18 01:01 - Laboratory Laboratory results interpreted by me: 05/05/18 05/05/18 22:30 23:31 Hgb 11.4 L Hct 34.3 L RDW 14.9 H Plt Count 567 H Potassium 3.3 L Chloride 113 H BUN 6 L Calcium 7.3 L Total Protein 5.5 L Albumin 2.9 L Discharge <SELENA RICE - Last Filed: 05/06/18 00:27> <CHRISTIANO WINN - Last Filed: 05/06/18 02:14> - Discharge Clinical Impression: Hypokalemia Chest pain Qualifiers: Chest pain type: unspecified Qualified Code(s): R07.9 - Chest pain, unspecified Condition: Stable Disposition: HOME, SELF-CARE Instructions: Chest Pain of Unclear Cause ([facility]), Chest Wall Pain ([facility]), Hypokalemia ([facility]) Prescriptions: Cyclobenzaprine HCl [Flexeril 10 Mg Tablet] 10 mg PO BIDP PRN #20 tablet PRN Reason: Lidocaine [Lidoderm 5% (700 mg) Transdermal Patch] 1 patch TP DAILY #30 adh..patch Forms: Return to Work Referrals: DARIAN FELICIANO DO [NO LOCAL MD] - 05/07/18 Scribe Attestation: 05/06/18 02:14 I personally performed the services described in the documentation, reviewed and edited the documentation which was dictated to the scribe in my presence, and it accurately records my words and actions. (CHRISTIANO WINN)
[2018-05-05 22:57] LABS: ABSOLUTE BASOPHILS # (AUTO) 0.1 10^3/uL (0.0-0.2); ABSOLUTE EOSINOPHILS # (AUTO) 0.2 10^3/uL (0.0-0.6); ABSOLUTE MONOCYTES (AUTO) 0.6 10^3/uL (0.1-1.4); ABSOLUTE NEUT (AUTO) 6.7 10^3/uL (1.7-8.2); BASOPHILS % (AUTO) 0.9 % (0-2); EOSINOPHILS % (AUTO) 2.2 % (0-6); HEMATOCRIT 34.3 % (36.0-47.0); HEMOGLOBIN 11.4 g/dL (12.0-15.5); LYMPHOCYTES % (AUTO) 21.2 % (13-45); MEAN CORPUSCULAR HEMOGLOBIN 30.5 pg (27.0-33.4); MEAN CORPUSCULAR HGB CONC 33.2 g/dL (32.0-36.0); MEAN CORPUSCULAR VOLUME 92 fl (80-97); MONOCYTES % (AUTO) 6.4 % (3-13); PLATELET COUNT 567 10^3/uL (150-450); RED BLOOD COUNT 3.74 10^6/uL (3.72-5.28); RED CELL DISTRIBUTION WIDTH 14.9 % (11.5-14.0); SEGMENTED NEUTROPHILS % (AUTO) 69.3 % (42-78); TOTAL CELLS COUNTED % (AUTO) 100 %; WHITE BLOOD COUNT 9.7 10^3/uL (4.0-10.5)
[2018-05-05 23:02] LABS: INTERNATIONAL RATION (INR) 0.93; PROTHROMBIN TIME 12.9 SEC (11.4-15.4)
[2018-05-06] MEDS ORDERED: HYDROMORPHONE HCL INJ/PF 2 MG/ML AMPULE IV ONE (00:26)
[2018-05-06 01:05] LABS: ALANINE AMINOTRANSFERASE 21 U/L (9-52); ALBUMIN 2.9 g/dL (3.5-5.0); ALKALINE PHOSPHATASE 56 U/L (38-126); ANION GAP 8 (5-19); ASPARTATE AMINO TRANSFERASE 15 U/L (14-36); BILIRUBIN,DIRECT 0.2 mg/dL (0.0-0.4); BILIRUBIN,TOTAL 0.2 mg/dL (0.2-1.3); BLOOD UREA NITROGEN 6 mg/dL (7-20); CALCIUM 7.3 mg/dL (8.4-10.2); CARBON DIOXIDE 22 mmol/L (22-30); CHLORIDE 113 mmol/L (98-107); GLUCOSE 75 mg/dL (75-110); POTASSIUM 3.3 mmol/L (3.6-5.0); TOTAL PROTEIN 5.5 g/dL (6.3-8.2)
--- NOTE | 2018-05-06 01:38 | RADIOLOGY REPORT (SQ) ---
EXAM DESCRIPTION: CT CHEST ANGIOGRAPHY WITHOUT THEN WITH IV CONTRAST COMPLETED DATE/TME: 05/06/2018 00:00 CLINICAL HISTORY: 38 years, Female, SOB COMPARISON: 01/03/2018. TECHNIQUE: 518 Images stored on PACS. All CT scanners at this facility use dose modulation, iterative reconstruction, and/or weight based dosing when appropriate to reduce radiation dose to as low as reasonably achievable (ALARA). [facility]: Dose Right [facility]: CareDose [facility]: Dose Right [facility]: Teradose 4D [facility]: [employer] LIMITATIONS: None. FINDINGS: The aorta is normal in caliber without dissection or rupture. No evidence of pericardial effusion. No significant thoracic adenopathy. Atelectasis in the lung bases. Trace pleural effusions bilaterally. There are scattered upper abdominal and mesenteric lymph nodes. IMPRESSION: Atelectasis in the lung bases with small bilateral pleural effusions left greater than right No evidence aortic dissection or pulmonary embolus Scattered upper abdominal lymph nodes TECHNICAL DOCUMENTATION: Quality ID # [id number]: Final reports with documentation of one or more dose reduction techniques (e.g., Automated exposure control, adjustment of the mA and/or kV according to patient size, use of iterative reconstruction technique) 2010 [employer]- All Rights Reserved
[2018-05-06] MEDS ORDERED: HYDROCODONE/ACETAMINOPHEN 5-325 MG (6 TAB/ER DISP) PO PRN (01:55)
[2018-05-06 01:59] VITALS: BP 122/89
== END 2018-05-06 02:07 | disposition home or self-care (01) ==
LOC: ER 20:33
DX: E87.6 Hypokalemia (principal); R07.9 Chest pain, unspecified; R06.02 Shortness of breath; Z86.711 Personal history of pulmonary embolism; I25.2 Old myocardial infarction
CPT/HCPCS: 93005; 99285; 96361; 96374; 96375; 36415; 84703; 85025; 85610; 85730; 80053; 84484; 71275; 93010; J2270; J1170; J7030

== ENCOUNTER 2018-08-22 22:52 | Emergency (ER) | payer MEDICAID ==
[2018-08-22 23:08] VITALS: BP 143/90
[2018-08-22] MEDS ORDERED: OXYCODONE-ACETAMINOPHEN 5-325 MG TABLET PO ONE (23:50)
[2018-08-22] MEDS ORDERED: ONDANSETRON 4 MG TAB.RAPDIS PO ONE (23:50)
--- NOTE | 2018-08-22 23:53 | ER Document Report ---
ED Medical Screen (RME) - General Chief Complaint: Fall Stated Complaint: FALL/PAIN Time Seen by Provider: 08/22/18 23:50 Notes: 38-year-old female chief complaint of falling and landing on a step on her lower back/tailbone. Denies any other injuries. Denies numbness, incontinence , she was able to urinate earlier. Denies , reports LMP within the past month. TRAVEL OUTSIDE OF THE [place] IN LAST 30 DAYS: No - Related Data Allergies/Adverse Reactions: Pork/Porcine Containing Products [Pork/Porcine Product Derivatives] Allergy ( Intermediate, Verified 04/19/18 11:29) Swelling of hands and/or feet No Known Drug Allergies Allergy (Verified 04/19/18 11:29) Past Medical History - Past Medical History Cardiac Medical History: Reports: Hx Heart Attack - x1, "mild", Hx Pulmonary Embolism Renal/ Medical History: Denies: Hx Peritoneal Dialysis Past Surgical History: Reports: Hx Section - x1 - Immunizations Hx Diphtheria, Pertussis, Tetanus Vaccination: Yes History of Influenza Vaccine for 06/2017 - 11/2017 Season: No Physical Exam - Vital signs Vitals: Temp Pulse Resp BP Pulse Ox 97.7 F 74 18 143/90 H 97 08/22/18 23:07 08/22/18 23:07 08/22/18 23:07 08/22/18 23:07 08/22/18 23:07 - General General appearance: Other - Crying quietly, has difficulty sitting down - Back Back: Tender - Tender over the lower lumbar and over the sacral area, no swelling or signs of trauma, unremarkable back exam otherwise Course - Vital Signs Vital signs: Temp Pulse Resp BP Pulse Ox 97.7 F 74 18 143/90 H 97 08/22/18 23:07 08/22/18 23:07 08/22/18 23:07 08/22/18 23:07 08/22/18 23:07
--- NOTE | 2018-08-23 00:41 | RADIOLOGY REPORT (SQ) ---
EXAM DESCRIPTION: XR SACRUM COCCYX 2 OR MORE VIEWS COMPLETED DATE/TME: 08/22/2018 23:50 CLINICAL HISTORY: 38 years, Female, fall on step, pain TECHNICAL DATA: Three x-ray views of the sacrum and coccyx were performed on 08/23/2018 at 12:17 AM. COMPARISONS: None FINDINGS: There is no evidence of fracture or dislocation. There is no significant arthritis or degenerative change. No focal lytic or sclerotic bone lesions are seen. Bone mineralization is normal No focal soft tissue abnormalities are identified. IMPRESSION: No evidence of acute osseous injury involving the sacrum and coccyx.
--- NOTE | 2018-08-23 00:51 | RADIOLOGY REPORT (SQ) ---
EXAM DESCRIPTION: XR LUMBAR SPINE ANTEROPOSTERIOR, LATERAL, AND OBLIQUES COMPLETED DATE/TME: 08/22/2018 23:50 CLINICAL HISTORY: 38 years, Female, fall on step, pain TECHNICAL DATA: Five x-ray views of the lumbar spine were performed. Comparison: None. FINDINGS: Five lumbar type vertebrae are identified. The vertebral body height and intervertebral disc space height are normal. There is slight levoscoliosis. There is sclerosis along the iliac portion of the left sacroiliac joint and to a lesser degree the right sacroiliac joint consistent with osteitis condensans ilii. There are no lytic bone lesions. There is no evidence of fracture or subluxation. There are no significant degenerative changes of the lumbar spine. The facet joints are unremarkable. The pedicles appear intact. Bone mineralization is normal. There are multiple pelvic phleboliths. IMPRESSION: 1. No evidence of acute osseous abnormality involving the lumbar spine. 2. 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 3. Slight levoscoliosis.
[2018-08-23] MEDS ORDERED: HYDROCODONE/ACETAMINOPHEN 5-325 MG (6 TAB/ER DISP) PO PRN (02:02)
--- NOTE | 2018-08-23 02:02 | ER Document Report ---
HPI - HPI Patient complains to provider of: fall, lower back/tailbone pain Time Seen by Provider: 08/22/18 23:50 Pain Level: 5 Context: Patient is a 38-year-old female with chief complaint of falling and landing on a step on her lower back/tailbone. Denies any other injuries. Denies numbness , incontinence, she was able to urinate earlier. Denies , reports LMP within the past month. - REPRODUCTIVE Reproductive: DENIES: : - DERM Skin Color: Normal Past Medical History - General Information source: Patient - Social History Smoking Status: Never Smoker Chew tobacco use (# tins/day): No Frequency of alcohol use: None Drug Abuse: None Lives with: Family Family History: Reviewed & Not Pertinent Patient has suicidal ideation: No Patient has homicidal ideation: No - Past Medical History Cardiac Medical History: Reports: Hx Pulmonary Embolism Renal/ Medical History: Denies: Hx Peritoneal Dialysis Past Surgical History: Reports: Hx Section - x1 - Immunizations Hx Diphtheria, Pertussis, Tetanus Vaccination: Yes Vertical Provider Document - CONSTITUTIONAL General Appearance: WD/WN, Mild Distress - Patient appears to be in pain, she is tearful, she is not in severe distress - INFECTION CONTROL TRAVEL OUTSIDE OF THE [place] IN LAST 30 DAYS: No - HEENT HEENT: Atraumatic, Normocephalic - NECK Neck: Normal Inspection - RESPIRATORY Respiratory: Breath Sounds Normal - CARDIOVASCULAR Cardiovascular: Regular Rate, Regular Rhythm - GI/ABDOMEN Gastrointestinal: Abdomen Soft, Abdomen Non-Tender - BACK Back: negative: Normal Inspection - Tender over the lower lumbar midline and lower paraspinal lumbar areas, tender over these tailbone. No swelling, bruising, wounds noted. No saddle anesthesia. Normal upper and lower extremity range of motion, normal strength, normal distal neurovascular exam. Course - Re-evaluation Re-evalutation: Patient initially very tearful, having difficulty sitting down. She ambulates easily. I do not see any bruising or swelling, no open wounds, she does not have any neurological deficits. Patient was provided with pain medication, imaging performed of the lower back, sacrum, coccyx. Incidental findings only, no acute findings. On reevaluation patient much much more comfortable. Still no concerning deficits seen on exam or reported. I discussed results with patient in detail including incidental findings, discussed treatment, follow-up , return precautions in detail. Provide with work-release on request. Patient states understanding and agreement. - Vital Signs Vital signs: Temp Pulse Resp BP Pulse Ox 97.7 F 74 18 143/90 H 97 08/22/18 23:07 08/22/18 23:07 08/22/18 23:07 08/22/18 23:07 08/22/18 23:07 Discharge - Discharge Clinical Impression: Sacral pain Fall Qualifiers: Encounter type: initial encounter Qualified Code(s): W19.XXXA - Unspecified fall, initial encounter Lower back pain Qualifiers: Chronicity: acute Back pain laterality: bilateral Sciatica presence: without sciatica Qualified Code(s): M54.5 - Low back pain Condition: Stable Disposition: HOME, SELF-CARE Additional Instructions: Your x-rays do not show any concerning abnormalities regarding your injury today. This appears to be soft tissue and possibly bony bruising only. Pain should resolve with time, take medications as prescribed if needed, consider sitting on padded "doughnut" or similar device to help with symptoms. You can apply heat to your lower back. Rest. Your x-ray shows incidental findings of osteitis condensans ilii (on the left greater than the right) and slight levoscoliosis (slight curvature of your spine to the left). Follow-up with primary care. Return to the emergency department for any concerning symptoms including numbness, inability to urinate, accidentally having a bowel movement, or any other concerning or worsening symptoms. Prescriptions: Naproxen [Naprosyn 375 Mg Tablet] 375 mg PO BID #20 tablet Forms: Return to Work
== END 2018-08-23 02:21 | disposition home or self-care (01) ==
LOC: ER 22:52
DX: M53.3 Sacrococcygeal disorders, not elsewhere classified (principal); M54.5 Low back pain; W10.9XXA Fall (on) (from) unspecified stairs and steps, initial encounter
CPT/HCPCS: 99283; 72220; 72110; S0119

== ENCOUNTER 2018-08-26 11:16 | Emergency (ER) | payer MEDICAID ==
[2018-08-26] MEDS ORDERED: OXYCODONE-ACETAMINOPHEN 5-325 MG TABLET PO ONE (11:43)
--- NOTE | 2018-08-26 11:47 | ER Document Report ---
HPI - HPI Patient complains to provider of: Fall, buttock pain Time Seen by Provider: 08/26/18 11:31 Onset: Other - 5 days ago Onset/Duration: Persistent Quality of pain: Sharp Pain Level: 5 Context: Patient states she slipped on steps and landed on her buttocks 5 days ago. Patient was seen here 4 days ago after the injury. Patient complains of worsening pain and inability to sit comfortably. Patient does have an appointment with her primary doctor in 4 days but complains of worsening pain. Associated Symptoms: Other - Sacral pain Exacerbated by: Sitting, Movement, Walking Relieved by: Denies Similar symptoms previously: No Recently seen / treated by doctor: No - ROS ROS below otherwise negative: Yes Systems Reviewed and Negative: Yes All other systems reviewed and negative - CONSTITUTIONAL Constitutional: DENIES: Fever - NEURO Neurology: DENIES: Weakness - GASTROINTESTINAL Gastrointestinal: DENIES: Nausea - REPRODUCTIVE Reproductive: DENIES: : - MUSCULOSKELETAL Musculoskeletal: REPORTS: Back Pain - DERM Skin Color: Normal Skin Problems: None Past Medical History - General Information source: Patient - Social History Smoking Status: Never Smoker Frequency of alcohol use: None Drug Abuse: None Occupation: Housekeeping Lives with: Spouse/Significant other Family History: Reviewed & Not Pertinent - Past Medical History Cardiac Medical History: Reports: Hx Heart Attack - x1, "mild", Hx Pulmonary Embolism Renal/ Medical History: Denies: Hx Peritoneal Dialysis Past Surgical History: Reports: Hx Section - x1 - Immunizations Hx Diphtheria, Pertussis, Tetanus Vaccination: Yes Vertical Provider Document - CONSTITUTIONAL Agree With Documented VS: Yes Exam Limitations: No Limitations General Appearance: WD/WN, No Apparent Distress - INFECTION CONTROL TRAVEL OUTSIDE OF THE [place] IN LAST 30 DAYS: No - HEENT HEENT: Atraumatic, Normocephalic - NECK Neck: Normal Inspection - RESPIRATORY Respiratory: Breath Sounds Normal, No Respiratory Distress - CARDIOVASCULAR Cardiovascular: Regular Rate, Regular Rhythm - BACK Back: Abnormal Inspection - Patient with sacral tenderness and tenderness to upper portion of gluteal cleft, no swelling, no ecchymosis Notes: No spinal lumbar midline tenderness step-off or deformity, bilat SI joint tenderness - MUSCULOSKELETAL/EXTREMETIES Musculoskeletal/Extremeties: MACAROL ABRAHAM - NEURO Level of Consciousness: Awake, Alert, Appropriate Motor/Sensory: No Motor Deficit - DERM Integumentary: Warm, Dry, No Rash Course - Re-evaluation Re-evalutation: 08/26/[address] report findings with patient. Patient encouraged to follow-up with orthopedics for further management. The patient presents with low back pain without signs of spinal cord compression, cauda equina syndrome, infection , aneurysm, or other serious etiology. The patient is neurologically intact. Given the extremely risk of these diagnoses further testing and evaluation for these possibilities does not appear to be indicated at this time. Patient has been instructed to return if the symptoms worsen or change in any way. - Vital Signs Vital signs: Temp Pulse Resp BP Pulse Ox 97.8 F 77 16 135/94 H 97 08/26/18 11:20 08/26/18 11:20 08/26/18 11:20 08/26/18 11:20 08/26/18 11:20 - Diagnostic Test Radiology reviewed: Reports reviewed Discharge - Discharge Clinical Impression: Sacral pain, Sacroiliitis, Coccyx pain Condition: Stable Disposition: HOME, SELF-CARE Instructions: Coccyx Injury ([facility]), Ice Packs ([facility]), Low Back Pain ([facility]), Oral Narcotic Medication ([facility]) Additional Instructions: Return immediately for any new or worsening symptoms Followup with your primary care provider, call tomorrow to make a followup appointment Follow-up with orthopedics for further evaluation, call tomorrow for an appointment Prescriptions: Oxycodone HCl/Acetaminophen [Percocet 5-325 mg Tablet] 1 tab PO ASDIR PRN #15 tablet PRN Reason: Forms: Return to Work Referrals: WALKER TESFAYE MD [Primary Care Provider] - Follow up as needed [facility] [Provider Group] - Follow up as needed
--- NOTE | 2018-08-26 13:34 | RADIOLOGY REPORT (SQ) ---
EXAM DESCRIPTION: CT PELVIS WITHOUT COMPLETED DATE/TIME: 08/26/2018 1:12 pm REASON FOR STUDY: fall, sacral pain COMPARISON: None. TECHNIQUE: CT scan of the pelvis performed without intravenous or oral contrast. Images reviewed wi th soft tissue and bone windows. Reconstructed coronal and sagittal MPR images reviewed. All images stored on PACS. All CT scanners at this facility use dose modulation, iterative reconstruction, and/or weight based d osing when appropriate to reduce radiation dose to as low as reasonably achievable (ALARA). [facility]: Dose Right [facility]: CareDose [facility]: Dose Right [facility]: Teradose 4D [facility]: [employer] RADIATION DOSE: CT Rad equipment meets quality standard of care and radiation dose reduction techniq ues were employed. CTDIvol: 31.8 mGy. DLP: 862 mGy-cm. mGy. LIMITATIONS: None. FINDINGS: PELVIC BONES: No acute fracture. No worrisome bone lesions. SI joint arthropathy. VISUALIZED SPINE: No acute findings. HIP(S): No acute fracture or dislocation. No worrisome bone lesions. PELVIC SOFT TISSUES: No significant findings. EXTRAPELVIC SOFT TISSUES: No significant findings. OTHER: No other significant finding. IMPRESSION: No fracture. TECHNICAL DOCUMENTATION: JOB ID: [id number] Quality ID # [id number]: Final reports with documentation of one or more dose reduction techniques (e.g., Au tomated exposure control, adjustment of the mA and/or kV according to patient size, use of iterative reconstruction technique) 2010 [employer]- All Rights Reserved Reading location - IP/workstation name: [email or web address]
--- NOTE | 2018-08-26 13:45 | RADIOLOGY REPORT (SQ) ---
EXAM DESCRIPTION: CT LUMBAR SPINE WITHOUT COMPLETED DATE/TIME: 08/26/2018 1:12 pm REASON FOR STUDY: fall, sacral pain COMPARISON: Lumbar spine x-ray 08/23/2018. TECHNIQUE: Axial images acquired through the lumbar spine without intravenous contrast. Images revi ewed with lung, soft tissue and bone windows. Reconstructed coronal and sagittal MPR images reviewed . All images stored on PACS. All CT scanners at this facility use dose modulation, iterative reconstruction, and/or weight based d osing when appropriate to reduce radiation dose to as low as reasonably achievable (ALARA). [facility]: Dose Right [facility]: CareDose [facility]: Dose Right [facility]: Teradose 4D [facility]: [employer] RADIATION DOSE: mGy. LIMITATIONS: None. FINDINGS: SEGMENTATION: Normal. No transitional anatomy. ALIGNMENT: Normal. VERTEBRAL BODIES: No fractures. No dislocation. No acute findings. DISCS: There is mild multilevel degenerative disc disease. PEDICLES, TRANSVERSE PROCESSES: No fractures. No dislocation. No acute findings. FACETS, POSTERIOR ELEMENTS: No fractures. No dislocation. HARDWARE: None in the spine. VISUALIZED RIBS: No fractures. SOFT TISSUES: No significant or acute finding in adjacent soft tissues. OTHER: There is increased sclerosis at the sacroiliac joints. IMPRESSION: 1. No acute fracture of the lumbar spine. 2. Increased sclerosis at the sacroiliac joints, may be seen with sacroiliitis. TECHNICAL DOCUMENTATION: JOB ID: [id number] MD-64 Quality ID # [id number]: Final reports with documentation of one or more dose reduction techniques (e.g., Au tomated exposure control, adjustment of the mA and/or kV according to patient size, use of iterative reconstruction technique) 2010 [employer]- All Rights Reserved Reading location - IP/workstation name: [email or web address]
[2018-08-26 14:28] VITALS: BP 130/89
== END 2018-08-26 14:20 | disposition home or self-care (01) ==
LOC: ER 11:16
DX: M46.1 Sacroiliitis, not elsewhere classified (principal); M53.3 Sacrococcygeal disorders, not elsewhere classified; W10.9XXA Fall (on) (from) unspecified stairs and steps, initial encounter
CPT/HCPCS: 72131; 72192; 81025; 99284

== ENCOUNTER 2018-09-23 15:55 | Emergency (ER) | payer MEDICAID ==
--- NOTE | 2018-09-23 16:27 | ER Document Report ---
ED Medical Screen (RME) - General Chief Complaint: Dog Bite Stated Complaint: DOG BITE Time Seen by Provider: 09/23/18 16:22 Mode of Arrival: Ambulatory Information source: Patient TRAVEL OUTSIDE OF THE [place] IN LAST 30 DAYS: No - HPI Patient complains to provider of: dog bite Onset: Yesterday - pt. states she was bitten by pit bull last night. Now area is draining clear fluid. Tet- UTD - Related Data Allergies/Adverse Reactions: Pork/Porcine Containing Products [Pork/Porcine Product Derivatives] Allergy (Intermediate, Verified 04/19/18 11:29) Swelling of hands and/or feet No Known Drug Allergies Allergy (Verified 04/19/18 11:29) Past Medical History - Past Medical History Cardiac Medical History: Reports: Hx Heart Attack - x1, "mild", Hx Pulmonary Embolism Renal/ Medical History: Denies: Hx Peritoneal Dialysis Past Surgical History: Reports: Hx Section - x1 - Immunizations Hx Diphtheria, Pertussis, Tetanus Vaccination: Yes History of Influenza Vaccine for 06/2017 - 11/2017 Season: No Physical Exam - Vital signs Vitals: Temp Pulse Resp BP Pulse Ox 98.2 F 72 14 128/82 H 99 09/23/18 16:02 09/23/18 16:02 09/23/18 16:02 09/23/18 16:02 09/23/18 16:02 Course - Vital Signs Vital signs: Temp Pulse Resp BP Pulse Ox 98.2 F 72 14 128/82 H 99 09/23/18 16:02 09/23/18 16:02 09/23/18 16:02 09/23/18 16:02 09/23/18 16:02 Doctor's Discharge - Discharge Referrals: WALKER TESFAYE MD [Primary Care Provider] - Follow up as needed
[2018-09-23] MEDS ORDERED: AMOXICILLIN TR/POT CLAVULANATE 500-125 MG TAB PO ONE (17:18)
[2018-09-23] MEDS ORDERED: DIPH/PERTUSS(ACELL)/TETANUS VAC/PF 0.5 ML SYR (>=10YO) IM ONE (17:18)
[2018-09-23] MEDS ORDERED: AMOXICILLIN TRIHYDRATE 500 MG CAPSULE PO ONE (17:18)
--- NOTE | 2018-09-23 17:23 | ER Document Report ---
HPI - HPI Time Seen by Provider: 09/23/18 16:22 Pain Level: 4 Notes: Patient is an otherwise healthy 38-year-old female who presents with chief complaint of dog bite to her right thigh. She reports this occurred last night by a neighborhood stray dog. She reports her immunizations are not up-to-date, unknown immunization status on the dog. She does state that the dog comes around frequently and was acting normally. Nursing staff initiated animal control bite form. - CONSTITUTIONAL Constitutional: DENIES: Fever, Chills - REPRODUCTIVE Reproductive: DENIES: : Past Medical History - General Information source: Patient - Social History Smoking Status: Never Smoker Chew tobacco use (# tins/day): No Frequency of alcohol use: None Drug Abuse: None Family History: Reviewed & Not Pertinent Patient has suicidal ideation: No Patient has homicidal ideation: No - Past Medical History Cardiac Medical History: Reports: Hx Heart Attack - x1, "mild", Hx Pulmonary Embolism Renal/ Medical History: Denies: Hx Peritoneal Dialysis Past Surgical History: Reports: Hx Section - x1 - Immunizations Hx Diphtheria, Pertussis, Tetanus Vaccination: Yes Vertical Provider Document - CONSTITUTIONAL Notes: PHYSICAL EXAMINATION: GENERAL: Well-appearing, well-nourished and in no acute distress. HEAD: Atraumatic, normocephalic. EYES: Pupils equal round extraocular movements intact, conjunctiva are normal. ENT: Nares patent NECK: Normal range of motion LUNGS: No respiratory distress Musculoskeletal: Normal range of motion NEUROLOGICAL: Normal speech, normal gait. PSYCH: Normal mood, normal affect. SKIN: Warm, Dry, normal turgor, no rashes or lesions noted. Superficial dog bite noted to patient's right thigh on the lateral surface. No surrounding erythema, no active bleeding. - INFECTION CONTROL TRAVEL OUTSIDE OF THE [place] IN LAST 30 DAYS: No Course - Re-evaluation Re-evalutation: Patient's examination is consistent with dog bite. Does not appear to be infected at this time. Will place patient on Augmentin and give strict ED return precautions. - Vital Signs Vital signs: Temp Pulse Resp BP Pulse Ox 98.2 F 72 14 128/82 H 99 09/23/18 16:02 09/23/18 16:02 09/23/18 16:02 09/23/18 16:02 09/23/18 16:02 Discharge - Discharge Clinical Impression: Dog bite Qualifiers: Encounter type: initial encounter Qualified Code(s): W54.0XXA - Bitten by dog, initial encounter Condition: Stable Disposition: HOME, SELF-CARE Additional Instructions: Animal Bites Animal bites are often heavily contaminated with bacteria. In spite of thorough cleansing and proper treatment, these wounds frequently become infected. Bite wounds of the hands are especially prone to complications. Bites are dressed, if possible. Large wounds may require suturing after internal cleansing. Because of infection risk, some large wounds must remain unstitched. Your doctor is trained to advise you on the best treatment for your bite. Call the doctor at once if the wound becomes red, swollen, warm, increasingly painful, or if it begins to drain. Danger signs also include red streaks up the involved extremity, swollen glands in the groin or under the arm, or fever and chills. The risk of rabies from domestic animals is very low. Bats, sick animals, and wild animals may expose you to rabies. The physician, or the health department, will inform you if you will need to receive the rabies vaccine. Your Tdap was updated today. Please take the Augmentin as prescribed, finish the entire course even if your symptoms improve. Dog bites have a high probability of getting infected so it is very important that you take all the antibiotics. Change the dressing at least twice daily. Clean with soap and water. Return for a wound recheck in 2-3 days, sooner if worsening. Prescriptions: Amox Tr/Potassium Clavulanate [Augmentin 875-125 mg Tablet] 1 tab PO BID #20 tablet Referrals: WALKER TESFAYE MD [Primary Care Provider] - Follow up as needed
[2018-09-23 18:51] VITALS: BP 136/98
== END 2018-09-23 18:53 | disposition home or self-care (01) ==
LOC: ER 15:55
DX: S70.371A Other superficial bite of right thigh, initial encounter (principal); W54.0XXA Bitten by dog, initial encounter
CPT/HCPCS: 99283; 90471; 90715; J3490

== ENCOUNTER 2018-12-08 12:25 | Emergency (ER) | payer MEDICAID ==
--- NOTE | 2018-12-08 12:53 | ER Document Report ---
HPI - HPI Patient complains to provider of: Painful knot right lateral thigh Time Seen by Provider: 12/08/18 12:48 Onset: Other - Since dog bite in September Onset/Duration: Persistent Quality of pain: Sharp, Throbbing Severity: Moderate Pain Level: 4 Associated Symptoms: Other - Painful ambulation Exacerbated by: Sitting, Standing, Movement, Walking Relieved by: Denies Similar symptoms previously: Yes Recently seen / treated by doctor: Yes - ROS ROS below otherwise negative: Yes - CONSTITUTIONAL Constitutional: DENIES: Fever, Chills - EENT EENT: DENIES: Sore Throat, Ear Pain, Nasal Drainage-Clear, Nasal Drainage- Purulent, Congestion, Eye problems - NEURO Neurology: DENIES: Headache, Weakness, Vision blurred, Dizzinesss / Vertigo - CARDIOVASCULAR Cardiovascular: DENIES: Chest pain - RESPIRATORY Respiratory: DENIES: Trouble Breathing, Coughing - GASTROINTESTINAL Gastrointestinal: DENIES: Abdominal Pain, Nausea, Patient vomiting, Diarrhea, Constipation, Black / Bloody Stools - URINARY Urinary: DENIES: Dysuria, Urgency, Frequency - REPRODUCTIVE Reproductive: DENIES: :, Postmenopausal, Abnormal bleeding / discharge - MUSCULOSKELETAL Musculoskeletal: REPORTS: Extremity pain - Right thigh - DERM Skin Color: Normal Skin Problems: None Past Medical History - General Information source: Patient - Social History Smoking Status: Current Every Day Smoker Cigarette use (# per day): Yes - 2 Black and mild cigars a day Chew tobacco use (# tins/day): No Smoking Education Provided: Yes - 4 minutes Frequency of alcohol use: Social Drug Abuse: None Occupation: None at this time Lives with: Family - Her children Family History: Reviewed & Not Pertinent Patient has suicidal ideation: No Patient has homicidal ideation: No - Past Medical History Cardiac Medical History: Reports: Hx Heart Attack - x1, "mild", Hx Hypertension, Hx Pulmonary Embolism Pulmonary Medical History: Reports: None EENT Medical History: Reports: None Neurological Medical History: Reports: None Endocrine Medical History: Reports: None Renal/ Medical History: Reports: None Malignancy Medical History: Reports: None GI Medical History: Reports: None Musculoskeletal Medical History: Reports None Skin Medical History: Reports None Psychiatric Medical History: Reports: None Traumatic Medical History: Reports: None Infectious Medical History: Reports: None Past Surgical History: Reports: Hx Section - x1 - Immunizations Immunizations up to date: Yes Hx Diphtheria, Pertussis, Tetanus Vaccination: Yes Vertical Provider Document - CONSTITUTIONAL Agree With Documented VS: Yes Exam Limitations: No Limitations General Appearance: WD/WN - INFECTION CONTROL TRAVEL OUTSIDE OF THE [place] IN LAST 30 DAYS: No - HEENT HEENT: Atraumatic, Normal ENT Exam, Normocephalic, PERRLA - NECK Neck: Normal Inspection, Supple - RESPIRATORY Respiratory: Breath Sounds Normal, No Respiratory Distress, Chest Non-Tender - CARDIOVASCULAR Cardiovascular: Regular Rate, Regular Rhythm - GI/ABDOMEN Gastrointestinal: Abdomen Soft, Abdomen Non-Tender, No Organomegaly, Normal Bowel Sounds - BACK Back: Normal Inspection - MUSCULOSKELETAL/EXTREMETIES Musculoskeletal/Extremeties: Tender, Edema, Eccymosis - NEURO Level of Consciousness: Awake, Alert, Appropriate Motor/Sensory: No Motor Deficit, No Sensory Deficit, No Pronator Drift Deep Tendon Reflexes: 2+ - DERM Integumentary: Warm, Dry, No Rash Course - Vital Signs Vital signs: Temp Pulse Resp BP Pulse Ox 98.7 F 89 18 136/86 H 100 12/08/18 12:30 12/08/18 12:30 12/08/18 12:30 12/08/18 12:30 12/08/18 12:30 - Diagnostic Test Radiology reviewed: Image reviewed, Reports reviewed Discharge - Discharge Clinical Impression: painful knot to right lateral thigh Condition: Stable Disposition: HOME, SELF-CARE Instructions: Family Physicians / Practices Additional Instructions: You were seen today for a painful knot to the right lateral thigh after a dog bite in September. The ultrasound does not show an abscess, foreign body, or any swelling to the area. I have given you a written report as well as a CD of the ultrasound for you to take to your primary care doctor for any follow-up she may recommend. You could try spandex shorts to get compression to the area to see if that would help with your discomfort. Acetaminophen Acetaminophen may be taken for pain relief or fever control. It's much safer than aspirin, offering a wider range of "safe" dosages. It is safe during . Some brand names are Tylenol, Panadol, Datril, Anacin 3, Tempra, and Liquiprin. Acetaminophen can be repeated every four hours. The following are maximum recommended dosages: WEIGHT Dose Drops Elixir Chewable(80mg) (LBS.) drprs=droppers tsp=teaspoon 6 40 mg .4 ml (1/2) 6-11 80 mg .8 ml (full) 1/2 tsp 1 tab 12-16 120 mg 1 1/2 drprs 3/4 tsp 1 1/2 tabs 17-23 160 mg 2 drprs 1 tsp 2 tabs 24-30 240 mg 3 drprs 1 1/2 tsp 3 tabs 30-35 320 mg 2 tsp 4 tabs 36-41 360 mg 2 1/4 tsp 4 1/2 tabs 42-47 400 mg 2 1/2 tsp 5 tabs 48-53 480 mg 3 tsp 6 tabs 54-59 520 mg 3 1/4 tsp 6 1/2 tabs 60-64 560 mg 3 1/2 tsp 7 tabs 65-70 600 mg 3 3/4 tsp 7 1/2 tabs 71-76 640 mg 4 tsp 8 tabs 77-82 720 mg 4 1/2 tsp 9 tabs 83-88 800 mg 5 tsp 10 tabs >89 pounds or adults 650 mg to 900 mg Acetaminophen can be repeated every four hours. Maximum daily dose not to exceed 4000 mg. These maximum recommended dosages are slightly higher than the dosages written on the product container, but these dosages are very safe and well below the toxic dosage for acetaminophen. Ibuprofen Ibuprofen is an excellent, safe drug for pain control. In addition, it has potent antiinflammatory effects which are beneficial, especially in the treatment of injuries, arthritis, or tendonitis. It's best to take ibuprofen with food. Persons with ulcer disease or allergy to aspirin should notify their physician of this before taking ibuprofen. Take the medication exactly as prescribed. Don't take additional doses unless instructed to do so by your doctor. If you develop wheezing, shortness of breath, hives, faintness, stomach pain, vomiting, or dark black stools, return for re-evaluation at once. Ice Packs Apply ice packs frequently against the painful area. Many different schedules are recommended, such as "20 minutes on, 20 minutes off" or "one hour ice, two hours rest." If you need to work, you may need to go longer between ice treatments. You should plan to have the area ice packed AT LEAST one fourth of the time. The ice should be applied over the wrap, tape, or splint, or over a layer of cloth -- not directly against the skin. Some ice bags have a built-in cloth and can be put directly on the skin. FOLLOW-UP CARE: If you have been referred to a physician for follow-up care, call the physicians office for an appointment as you were instructed or within the next two days. If you experience worsening or a significant change in your symptoms, notify the physician immediately or return to the Emergency Department at any time for re-evaluation. Forms: Smoking Cessation Education, Elevated Blood Pressure Referrals: WALKER TESFAYE MD [ACTIVE STAFF] - Follow up as needed
--- NOTE | 2018-12-08 13:30 | RADIOLOGY REPORT (SQ) ---
EXAM DESCRIPTION: U/S EXTREMITY NONVASCULAR LTD COMPLETED DATE/TIME: 12/08/2018 1:25 pm REASON FOR STUDY: right thigh knot from previous dog bite COMPARISON: None. TECHNIQUE: Dynamic and static grayscale images acquired of the localized site of clinical concern an d recorded on PACS. Additional selected color Doppler and spectral images recorded. SITE OF CONCERN: Lateral right thigh. LIMITATIONS: None. FINDINGS: SKIN AND SUBCUTANEOUS TISSUES: No masses. No fluid collections. No edema. No foreign desiree s. DEEP SOFT TISSUES/MUSCLES: No masses. No fluid collections. No edema. OTHER: No other significant finding. IMPRESSION: NO SOFT TISSUE MASS, FLUID COLLECTION, OR FOREIGN BODY. TECHNICAL DOCUMENTATION: JOB ID: [id number] [employer]- All Rights Reserved Reading location - IP/workstation name: [email or web address]
[2018-12-08 14:00] VITALS: BP 118/82
== END 2018-12-08 14:08 | disposition home or self-care (01) ==
LOC: ER 12:25
DX: R22.41 Localized swelling, mass and lump, right lower limb (principal); F17.290 Nicotine dependence, other tobacco product, uncomplicated; I10 Essential (primary) hypertension; I25.2 Old myocardial infarction; Z86.711 Personal history of pulmonary embolism
CPT/HCPCS: 76882; 99283; 99406

== ENCOUNTER 2019-01-25 18:55 | Emergency (ER) | payer MEDICAID ==
[2019-01-25] MEDS ORDERED: DEXAMETHASONE 4 MG TABLET PO ONE (20:15)
--- NOTE | 2019-01-25 20:18 | ER Document Report ---
ED General - General Chief Complaint: Neck Swelling Stated Complaint: NECK SWELLING Time Seen by Provider: 01/25/19 19:17 Notes: Patient is a 38-year-old female without chronic medical problems who presents complaining of anterior cervical lymphadenopathy on the right side as well as a sore throat. Patient states that the lymph node swelling is her main concern. States that started as a single lymph node approximately 5 days ago and is now multiple lymph nodes on the right side. Notes that there is a moderate to severe, throbbing, constant pain to the area. Worsened by palpation of the area. Nothing improves the pain. Denies a history of similar symptoms in the past. Was seen in urgent care yesterday, tested for tuberculosis but no additional therapies were provided. States that she began having a sore throat and loss of voice today. Denies any difficulty swallowing or difficulty breathing. No fever or constitutional symptoms. TRAVEL OUTSIDE OF THE [place] IN LAST 30 DAYS: No - Related Data Allergies/Adverse Reactions: Pork/Porcine Containing Products [Pork/Porcine Product Derivatives] Allergy (Intermediate, Verified 01/25/19 18:56) Swelling of hands and/or feet No Known Drug Allergies Allergy (Verified 01/25/19 18:56) Past Medical History - General Information source: Patient - Social History Smoking Status: Never Smoker Frequency of alcohol use: None Drug Abuse: None Lives with: Spouse/Significant other Family History: Reviewed & Not Pertinent Patient has suicidal ideation: No Patient has homicidal ideation: No - Past Medical History Cardiac Medical History: Reports: Hx Heart Attack - x1, "mild", Hx Hypertension, Hx Pulmonary Embolism Renal/ Medical History: Denies: Hx Peritoneal Dialysis Past Surgical History: Reports: Hx Section - x1 - Immunizations Immunizations up to date: Yes Hx Diphtheria, Pertussis, Tetanus Vaccination: Yes Review of Systems - Review of Systems Notes: Constitutional: Negative for fever. HENT: Positive for sore throat, lymphadenopathy on the right anterior cervical chain Eyes: Negative for visual changes. Cardiovascular: Negative for chest pain. Respiratory: Negative for shortness of breath. Gastrointestinal: Negative for abdominal pain, vomiting or diarrhea. Genitourinary: Negative for dysuria. Musculoskeletal: Negative for back pain. Skin: Negative for rash. Neurological: Negative for headaches, weakness or numbness. 10 point ROS negative except as marked above and in HPI. Physical Exam - Vital signs Vitals: Temp Pulse Resp BP Pulse Ox 99.1 F 92 14 139/98 H 100 01/25/19 19:05 01/25/19 19:05 01/25/19 19:05 01/25/19 19:05 01/25/19 19:05 Interpretation: Normal Notes: PHYSICAL EXAMINATION: GENERAL: Appears moderately uncomfortable but in no acute distress. HEAD: Atraumatic, normocephalic. EYES: Pupils equal round and reactive to light, extraocular movements intact, sclera anicteric, conjunctiva are normal. ENT: nares patent, diffuse pharyngeal erythema, uvula midline, moist mucous membranes. NECK: Normal range of motion, prominent anterior cervical lymphadenopathy on the right that is tender, mobile and soft to palpation LUNGS: Breath sounds clear to auscultation bilaterally and equal. No wheezes rales or rhonchi. HEART: Regular rate and rhythm without murmurs ABDOMEN: Soft, nontender, normoactive bowel sounds. No guarding, no rebound. No masses appreciated. EXTREMITIES: Normal range of motion, no pitting or edema. No cyanosis. NEUROLOGICAL: No focal neurological deficits. Moves all extremities spontaneously and on command. PSYCH: Normal mood, normal affect. SKIN: Warm, Dry, normal turgor, no rashes or lesions noted. Course - Re-evaluation Re-evalutation: 01/25/19 20:14 Presentation of several days of right-sided anterior cervical lymphadenopathy as well as 24 hours of sore throat and loss of voice. Patient is very concerned about the right-sided anterior cervical lymphadenopathy and is the primary reason for her visit today. On exam there are 4 total lymph nodes in the right anterior cervical chain which are swollen, very mobile and tender to palpation. No fluctuance. No evidence of fluid collection on clinical exam. Do not suspect a neck abscess. These appear to be reactive likely due to an underlying viral illness particular given the patient's associated symptoms of raspy voice as well as sore throat. Rapid strep is negative. History and exam are not consistent with a retropharyngeal abscess or peritonsillar abscess. Airway is patent. No difficulty handling oral secretions. No stridor or complaints of difficulty breathing. Vitals within normal limits. Patient was treated with a dose of dexamethasone and advised on symptomatic care. Suspect likely viral pharyngitis. At this time will discharge with return precautions and follow-up recommendations. Verbal discharge instructions given a the bedside and opportunity for questions given. Medication warnings reviewed. Patient is in agreement with this plan and has verbalized understanding of return precautions and the need for primary care follow-up in the next 24-72 hours. - Vital Signs Vital signs: Temp Pulse Resp BP Pulse Ox 98.6 F 69 16 133/98 H 100 01/25/19 21:37 01/25/19 21:37 01/25/19 21:37 01/25/19 21:37 01/25/19 21:37 Discharge - Discharge Clinical Impression: Anterior cervical lymphadenopathy Pharyngitis Qualifiers: Pharyngitis/tonsillitis etiology: unspecified etiology Qualified Code(s): J02.9 - Acute pharyngitis, unspecified Condition: Good Disposition: HOME, SELF-CARE Additional Instructions: Your strep test is negative. Your symptoms are likely due to an viral infection and will resolve in the next 1-2 weeks. The swelling in your lymph nodes is likely due to reaction to the viral illness. You have also been given a dose of steroids to help with your throat discomfort. Please continue to take ibuprofen 600 mg every 6 hours or Tylenol 1000 mg every 6 hours as needed for throat discomfort. Continue to drink plenty of fluids. Follow-up with your primary care doctor in the next several days. Return if you become unable to swallow, have difficulty breathing, pass out, have persistent vomiting that prevents you from being able to tolerate fluids, or have any other symptoms that are concerning to you.
[2019-01-25 21:41] VITALS: BP 133/98
== END 2019-01-25 21:43 | disposition home or self-care (01) ==
LOC: ER 18:55
DX: R59.0 Localized enlarged lymph nodes (principal); J02.9 Acute pharyngitis, unspecified; I10 Essential (primary) hypertension; I25.2 Old myocardial infarction; Z86.711 Personal history of pulmonary embolism
CPT/HCPCS: 99283; 87070; 87880; J3490

== ENCOUNTER 2019-02-03 10:26 | Emergency (ER) | payer MEDICAID ==
--- NOTE | 2019-02-03 11:23 | ER Document Report ---
ED Medical Screen (RME) - General Chief Complaint: Neck Swelling Stated Complaint: RIGHT SIDE NECK/EAR PAIN Time Seen by Provider: 02/03/19 11:18 TRAVEL OUTSIDE OF THE [place] IN LAST 30 DAYS: No - HPI Notes: 02/03/19 11:22 Patient is a 38-year-old female with no significant past medical history who presents complaining of increased pain and discomfort to the swollen lymph nodes the right side of her neck that is been present for the past 10 to 12 days. Patient was evaluated 9 days ago here in the emergency department and was diagnosed with a viral illness and was given dexamethasone. Patient states that the steroids did not help. Patient states that at times it feels like she has trouble swallowing. She did have a sore throat initially with loss of voice which has since improved. No other concerns or complaints. Denies VALERIO, fever, URI, CP, SOB, Abd pain, or rash. I have treated and performed a rapid initial assessment of this patient. A comprehensive ED assessment and evaluation of the patient, analysis of test results and completion of medical decision making process will be conducted by additional ED providers. PHYSICAL EXAMINATION: GENERAL: Well-appearing, well-nourished and in no acute distress. A&Ox4. Answers questions appropriately. Moves comfortably w/o notable distress EYES: Pupils equal round and reactive to light, extraocular movements intact, sclera anicteric, conjunctiva are normal. ENT: EAC clear b/l. TM's intact b/l without erythema, fluid, or perforation. Nares patent and with clear discharge. oropharynx mild erythema without exudates. No tonsilar hypertrophy with no erythema no exudate. No palatine shift. Uvula midline. No tongue protrusion. No drooling, hoarseness, or airway compromise. Moist mucous membranes. No sinus tenderness. NECK: + noticeable and tender lymphadenopathy right neck. LROM due to pain to lateral rotation. - Related Data Allergies/Adverse Reactions: Pork/Porcine Containing Products [Pork/Porcine Product Derivatives] Allergy (Intermediate, Verified 02/03/19 10:29) Swelling of hands and/or feet No Known Drug Allergies Allergy (Verified 02/03/19 10:29) Past Medical History - Social History Chew tobacco use (# tins/day): No Frequency of alcohol use: None Drug Abuse: None - Past Medical History Cardiac Medical History: Reports: Hx Heart Attack - x1, "mild", Hx Hypertension, Hx Pulmonary Embolism Renal/ Medical History: Denies: Hx Peritoneal Dialysis Past Surgical History: Reports: Hx Section - x1 - Immunizations Immunizations up to date: Yes Hx Diphtheria, Pertussis, Tetanus Vaccination: Yes History of Influenza Vaccine for 06/2017 - 11/2017 Season: No Physical Exam - Vital signs Vitals: Temp Pulse Resp BP Pulse Ox 98 F 76 18 148/103 H 99 02/03/19 10:32 02/03/19 10:32 02/03/19 10:32 02/03/19 10:32 02/03/19 10:32 Course - Vital Signs Vital signs: Temp Pulse Resp BP Pulse Ox 98 F 76 18 148/103 H 99 02/03/19 10:32 02/03/19 10:32 02/03/19 10:32 02/03/19 10:32 02/03/19 10:32
[2019-02-03 11:54] LABS: ABSOLUTE BASOPHILS # (AUTO) 0.1 10^3/uL (0.0-0.2); ABSOLUTE EOSINOPHILS # (AUTO) 0.2 10^3/uL (0.0-0.6); ABSOLUTE LYMPHOCYTES (AUTO) 1.2 10^3/uL (0.5-4.7); ABSOLUTE MONOCYTES (AUTO) 0.4 10^3/uL (0.1-1.4); ABSOLUTE NEUT (AUTO) 4.1 10^3/uL (1.7-8.2); BASOPHILS % (AUTO) 0.9 % (0-2); EOSINOPHILS % (AUTO) 2.7 % (0-6); HEMATOCRIT 40.6 % (36.0-47.0); HEMOGLOBIN 13.1 g/dL (12.0-15.5); LYMPHOCYTES % (AUTO) 20.9 % (13-45); MEAN CORPUSCULAR HGB CONC 32.3 g/dL (32.0-36.0); MEAN CORPUSCULAR VOLUME 93 fl (80-97); MONOCYTES % (AUTO) 6.8 % (3-13); PLATELET COUNT 433 10^3/uL (150-450); RED BLOOD COUNT 4.38 10^6/uL (3.72-5.28); RED CELL DISTRIBUTION WIDTH 15.1 % (11.5-14.0); SEGMENTED NEUTROPHILS % (AUTO) 68.7 % (42-78); TOTAL CELLS COUNTED % (AUTO) 100 %
[2019-02-03 12:10] LABS: ALANINE AMINOTRANSFERASE 26 U/L (9-52); ALBUMIN 4.6 g/dL (3.5-5.0); ALKALINE PHOSPHATASE 71 U/L (38-126); ANION GAP 13 (5-19); ASPARTATE AMINO TRANSFERASE 23 U/L (14-36); BILIRUBIN,DIRECT 0.2 mg/dL (0.0-0.4); BILIRUBIN,TOTAL 0.5 mg/dL (0.2-1.3); BLOOD UREA NITROGEN 9 mg/dL (7-20); CALCIUM 9.6 mg/dL (8.4-10.2); CARBON DIOXIDE 24 mmol/L (22-30); CHLORIDE 104 mmol/L (98-107); GLUCOSE 84 mg/dL (75-110); POTASSIUM 4.9 mmol/L (3.6-5.0); SODIUM 141.1 mmol/L (137-145); TOTAL PROTEIN 7.5 g/dL (6.3-8.2)
--- NOTE | 2019-02-03 12:28 | RADIOLOGY REPORT (SQ) ---
EXAM DESCRIPTION: CT SOFT TISSUE NECK WITH COMPLETED DATE/TIME: 02/03/2019 12:10 pm REASON FOR STUDY: Rt neck pain with lymphadenopathy COMPARISON: None. TECHNIQUE: Post IV contrasted scanning from skull base through lung apices with review of bone, soft tissue and lung windows. Reconstructed coronal and sagittal MPR images reviewed. All images stored on PACS. All CT scanners at this facility use dose modulation, iterative reconstruction, and/or weight based d osing when appropriate to reduce radiation dose to as low as reasonably achievable (ALARA). [facility]: Dose Right [facility]: CareDose [facility]: Dose Right [facility]: Teradose 4D [facility]: [employer] CONTRAST TYPE AND DOSE: contrast/concentration: Isovue 350.00 mg/ml; Total Contrast Delivered: 75.0 ml; Total Saline Delivered: 55.0 ml RENAL FUNCTION: None required. The patient is less than 50 years old. RADIATION DOSE: CT Rad equipment meets quality standard of care and radiation dose reduction techniq ues were employed. CTDIvol: 14.3 mGy. DLP: 387 mGy-cm. . LIMITATIONS: None. FINDINGS: SKULL BASE: Intact. MAJOR SALIVARY GLANDS: No solid or cystic masses. No inflammatory changes. LYMPHADENOPATHY: There are prominent bilateral anterior and posterior cervical chain lymph nodes. A 1.4 x 1.0 cm posterior chain lymph node underlies a BB marker about the right lateral neck. MUCOSAL MASSES OR ASYMMETRY: No mucosal masses or asymmetry. LARYNX/CORDS: No abnormal findings. VASCULAR STRUCTURES: The major vessels are patent. LUNG APICES: Clear. BONES: There is reversal of the normal cervical lordosis, likely positional. THYROID: Normal size. No masses. PARANASAL SINUSES: Clear. OTHER: No other significant finding. IMPRESSION: There are prominent bilateral anterior and posterior cervical chain lymph nodes. A 1.4 x 1.0 cm posterior chain lymph node underlies a BB marker about the right lateral neck. No discrete mass. TECHNICAL DOCUMENTATION: JOB ID: [id number] Quality ID # [id number]: Final reports with documentation of one or more dose reduction techniques (e.g., Au tomated exposure control, adjustment of the mA and/or kV according to patient size, use of iterative reconstruction technique) 2010 [employer]- All Rights Reserved Reading location - IP/workstation name: [email or web address]
[2019-02-03 14:57] VITALS: BP 149/102
--- NOTE | 2019-02-03 15:05 | ER Document Report ---
ED General - General Chief Complaint: Neck Swelling Stated Complaint: RIGHT SIDE NECK/EAR PAIN Time Seen by Provider: 02/03/19 11:18 Mode of Arrival: Ambulatory Information source: Patient Notes: This is a 38-year-old female who was seen several days ago for cervical adenopathy and neck pain and was given Decadron for viral syndrome. Patient reported that she had woken up with a sore throat and difficulty swallowing. She states that her symptoms have not improved since then. The patient does report now that she was scratched by her dog a few days before that initial presentation and had a large scratch to the left lower extremity and that the extremity was swollen and red. She also had reported 2 months earlier with a dog bite to the right thigh. She denied any fever. She denies any significant alcohol intake. TRAVEL OUTSIDE OF THE [place] IN LAST 30 DAYS: No - HPI Onset: Just prior to arrival Onset/Duration: Gradual Quality of pain: Dull Severity: Moderate Pain Level: 2 Associated symptoms: denies: Chills, Fever, Shortness of breath Exacerbated by: Movement Relieved by: Remaining still Similar symptoms previously: Yes Recently seen / treated by doctor: Yes - Related Data Allergies/Adverse Reactions: Pork/Porcine Containing Products [Pork/Porcine Product Derivatives] Allergy (Intermediate, Verified 02/03/19 10:29) Swelling of hands and/or feet No Known Drug Allergies Allergy (Verified 02/03/19 10:29) Past Medical History - General Information source: Patient - Social History Smoking Status: Former Smoker Cigarette use (# per day): No Chew tobacco use (# tins/day): No Frequency of alcohol use: None Drug Abuse: None Lives with: Family Family History: Reviewed & Not Pertinent Patient has suicidal ideation: No Patient has homicidal ideation: No - Past Medical History Cardiac Medical History: Reports: Hx Heart Attack - x1, "mild", Hx Hypertension, Hx Pulmonary Embolism Renal/ Medical History: Denies: Hx Peritoneal Dialysis Past Surgical History: Reports: Hx Section - x1 - Immunizations Immunizations up to date: Yes Hx Diphtheria, Pertussis, Tetanus Vaccination: Yes Review of Systems - Review of Systems Constitutional: denies: Chills, Fever EENT: See HPI Cardiovascular: No symptoms reported Respiratory: No symptoms reported Gastrointestinal: No symptoms reported Genitourinary: No symptoms reported Female Genitourinary: No symptoms reported Musculoskeletal: See HPI Skin: See HPI Hematologic/Lymphatic: No symptoms reported Neurological/Psychological: No symptoms reported Physical Exam - Vital signs Vitals: Temp Pulse Resp BP Pulse Ox 98 F 76 18 148/103 H 99 02/03/19 10:32 02/03/19 10:32 02/03/19 10:32 02/03/19 10:32 02/03/19 10:32 Notes: Physical exam: GENERAL: Patient is alert and oriented x3, no acute distress, her blood pressure is elevated at 148/1 HEAD: Atraumatic, normocephalic. EYES: Pupils equal round and reactive to light, extraocular movements intact, sclera anicteric, conjunctiva are normal. ENT: TMs normal, nares patent, oropharynx clear without exudates. There is no drooling, uvula swelling, posterior pharynx swelling or change in voice. Patient states her voice returned to normal since the previous presentation. Moist mucous membranes. NECK: supple, she does have left neck adenopathy without any warmth or fluctuance. There is no swelling over the anterior neck. No obvious thyroid enlargement. LUNGS: Breath sounds clear to auscultation bilaterally and equal. No wheezes rales or rhonchi. HEART: Regular rate and rhythm without murmurs, rubs or gallops. ABDOMEN: Soft, normoactive bowel sounds. No tenderness to palpation. No guarding, no rebound. No masses appreciated. EXTREMITIES: Normal range of motion, no pitting or edema. No clubbing or cyanosis. NEUROLOGICAL: Cranial nerves II through XII grossly intact. Normal speech, moving all extremities. PSYCH: Normal mood, normal affect. SKIN: She does have a long healing laceration to the left lower extremity with mild erythema no pus discharge or pain. Course - Vital Signs Vital signs: Temp Pulse Resp BP Pulse Ox 98.3 F 71 18 149/102 H 100 02/03/19 14:51 02/03/19 14:51 02/03/19 14:51 02/03/19 14:51 02/03/19 14:51 - Laboratory Result Diagrams: 02/03/19 11:37 02/03/19 11:37 Laboratory results interpreted by me: 02/03/19 11:37 RDW 15.1 H - Diagnostic Test Radiology reviewed: Image reviewed, Reports reviewed - T of the neck shows cervical lymphadenopathy Discharge - Discharge Clinical Impression: Cervical adenopathy Condition: Stable Disposition: HOME, SELF-CARE Additional Instructions: As we discussed the CT of the neck shows cervical adenopathy. Your lymph nodes can get enlarged after an infection and this frequently occurs with a virus or potentially a bacteria. Given the history of a hoarse voice and the symptoms previously, this suggests more of a viral infection etiology in which case your lymph nodes will get better. Your blood work looked good. Your strep test and your mono test were negative. Given the recent injury to the lower extremity from the dog: Given that it was red and swollen just prior to the symptoms starting, I will put you on an antibiotic that will cover you for bacteria. Take the Augmentin as prescribed. I do want you to follow-up with the family care clinic: Bring a copy of today's tests and CT report with you when you go. Start the antibiotic today. Return to the ER if you are unable to swallow or having difficulty breathing or you feel like your swallowing is getting worse. Prescriptions: Amox Tr/Potassium Clavulanate [Augmentin 875-125 Tablet] 1 tab PO BID #20 tablet
== END 2019-02-03 15:11 | disposition home or self-care (01) ==
LOC: ER 10:26
DX: R59.0 Localized enlarged lymph nodes (principal); M54.2 Cervicalgia; I25.2 Old myocardial infarction; I10 Essential (primary) hypertension; Z86.711 Personal history of pulmonary embolism
CPT/HCPCS: 36415; 70491; 80053; 85025; 86308; 87070; 87880; 99284

== ENCOUNTER 2019-02-27 05:05 | Emergency (ER) | payer MEDICAID ==
[2019-02-27 05:15] VITALS: BP 140/95
== END 2019-02-27 06:56 | disposition left against medical advice (07) ==
LOC: ER 05:05
DX: Z53.21 Procedure and treatment not carried out due to patient leaving prior to being seen by health care provider (principal); H57.10 Ocular pain, unspecified eye

== ENCOUNTER 2019-06-10 14:44 | Emergency (ER) | payer MEDICAID ==
[2019-06-10] MEDS ORDERED: ONDANSETRON HCL INJ/PF 4 MG/2 ML SDV IV ONE (15:28)
[2019-06-10] MEDS ORDERED: DICYCLOMINE HCL 20 MG TABLET PO ONE (15:29)
[2019-06-10] MEDS ORDERED: NORMAL SALINE 1000 ML 1,000 ML IV ONE (15:29)
--- NOTE | 2019-06-10 15:33 | ER Document Report ---
ED Medical Screen (RME) - General Chief Complaint: Nausea/Vomiting/Diarrhea Stated Complaint: VOMITING/DIARRHEA/FINGER LACERATION Time Seen by Provider: 06/10/19 15:25 TRAVEL OUTSIDE OF THE [place] IN LAST 30 DAYS: No - HPI Notes: 06/10/19 15:29 Patient is a 39-year-old female no significant past medical history who presents complaining of generalized abdominal cramping, nausea, vomiting, watery diarrhea over the past couple days after eating fish. She has not noticed any blood in her stool. She is urinating normally. No vaginal discharge, odor, bleeding. No fever. Patient also cut her anterior distal index finger with a knife in the kitchen prior to arrival. Tetanus is reported to be up-to-date within the last couple months. She is able to move her finger without difficulty. I have treated and performed a rapid initial assessment of this patient. A comprehensive ED assessment and evaluation of the patient, analysis of test results and completion of medical decision making process will be conducted by additional ED providers. PHYSICAL EXAMINATION: GENERAL: Well-appearing, well-nourished and in no acute distress. A&Ox4. Answers questions appropriately. Abd: soft. + generalized tenderness. Rt index: superficial linear 0.5cm laceration noted. no active bleeding. N/v intact distal. - Related Data Allergies/Adverse Reactions: Pork/Porcine Containing Products [Pork/Porcine Product Derivatives] Allergy (Intermediate, Verified 02/03/19 10:29) Swelling of hands and/or feet No Known Drug Allergies Allergy (Verified 02/03/19 10:29) Past Medical History - Past Medical History Cardiac Medical History: Reports: Hx Heart Attack - x1, "mild", Hx Hypertension, Hx Pulmonary Embolism Renal/ Medical History: Denies: Hx Peritoneal Dialysis Past Surgical History: Reports: Hx Section - x1 - Immunizations Immunizations up to date: Yes Hx Diphtheria, Pertussis, Tetanus Vaccination: Yes History of Influenza Vaccine for 06/2017 - 11/2017 Season: No Physical Exam - Vital signs Vitals: Temp Pulse Resp BP Pulse Ox 98.0 F 60 18 133/88 H 100 06/10/19 14:54 06/10/19 14:54 06/10/19 14:54 06/10/19 14:54 06/10/19 14:54 Course - Vital Signs Vital signs: Temp Pulse Resp BP Pulse Ox 98.0 F 60 18 133/88 H 100 06/10/19 14:54 06/10/19 14:54 06/10/19 14:54 06/10/19 14:54 06/10/19 14:54
[2019-06-10 16:17] LABS: ABSOLUTE EOSINOPHILS # (AUTO) 0.1 10^3/uL (0.0-0.6); ABSOLUTE LYMPHOCYTES (AUTO) 1.7 10^3/uL (0.5-4.7); ABSOLUTE MONOCYTES (AUTO) 0.6 10^3/uL (0.1-1.4); ABSOLUTE NEUT (AUTO) 4.2 10^3/uL (1.7-8.2); BASOPHILS % (AUTO) 0.4 % (0-2); EOSINOPHILS % (AUTO) 1.1 % (0-6); HEMATOCRIT 35.7 % (36.0-47.0); LYMPHOCYTES % (AUTO) 25.4 % (13-45); MEAN CORPUSCULAR HEMOGLOBIN 31.2 pg (27.0-33.4); MEAN CORPUSCULAR HGB CONC 33.6 g/dL (32.0-36.0); MEAN CORPUSCULAR VOLUME 93 fl (80-97); MONOCYTES % (AUTO) 9.6 % (3-13); PLATELET COUNT 428 10^3/uL (150-450); RED BLOOD COUNT 3.83 10^6/uL (3.72-5.28); SEGMENTED NEUTROPHILS % (AUTO) 63.5 % (42-78); TOTAL CELLS COUNTED % (AUTO) 100 %; WHITE BLOOD COUNT 6.6 10^3/uL (4.0-10.5)
[2019-06-10 16:19] LABS: APPEARANCE,URINE SLIGHTLY-CLOUDY; BILIRUBIN,URINE NEGATIVE (NEGATIVE); COLOR,URINE YELLOW; GLUCOSE, URINE NEGATIVE (NEGATIVE); KETONES,URINE NEGATIVE (NEGATIVE); LEUKOCYTE ESTERASE,URINE NEGATIVE (NEGATIVE); NITRITE,URINE NEGATIVE (NEGATIVE); PROTEIN,URINE NEGATIVE (NEGATIVE); URINE SPECIFIC GRAVITY 1.027; UROBILINOGEN,URINE NEGATIVE mg/dL (<2.0)
[2019-06-10 16:38] LABS: ALBUMIN 4.6 g/dL (3.5-5.0); ALKALINE PHOSPHATASE 75 U/L (38-126); ANION GAP 11 (5-19); ASPARTATE AMINO TRANSFERASE 23 U/L (14-36); BILIRUBIN,DIRECT 0.1 mg/dL (0.0-0.4); BILIRUBIN,TOTAL 0.6 mg/dL (0.2-1.3); BLOOD UREA NITROGEN 11 mg/dL (7-20); CALCIUM 9.7 mg/dL (8.4-10.2); CARBON DIOXIDE 25 mmol/L (22-30); CHLORIDE 101 mmol/L (98-107); GLUCOSE 88 mg/dL (75-110); POTASSIUM 4.2 mmol/L (3.6-5.0); TOTAL PROTEIN 7.5 g/dL (6.3-8.2)
--- NOTE | 2019-06-10 18:30 | ER Document Report ---
ED General - General Chief Complaint: Nausea/Vomiting/Diarrhea Stated Complaint: VOMITING/DIARRHEA/FINGER LACERATION Time Seen by Provider: 06/10/19 15:25 Notes: KRISTOPHER NOTE: Patient is a 39-year-old female no significant past medical history who presents complaining of generalized abdominal cramping, nausea, vomiting, watery diarrhea over the past couple days after eating fish. She has not noticed any blood in her stool. She is urinating normally. No vaginal discharge, odor, bleeding. No fever. Patient also cut her anterior distal index finger with a knife in the kitchen prior to arrival. Tetanus is reported to be up-to-date within the last couple months. She is able to move her finger without difficulty. MY HPI: Patient voices she cut her right index finger on a piece of glass. Patient has already been treated with Bentyl and Zofran and fluid resuscitation upon my assessment. States she overall feels a lot better. Currently denying any nausea. Has had no episodes of diarrhea while in the emergency room. Patient has a very small cuts on her right anterior distal index finger. TRAVEL OUTSIDE OF THE [place] IN LAST 30 DAYS: No - Related Data Allergies/Adverse Reactions: Pork/Porcine Containing Products [Pork/Porcine Product Derivatives] Allergy (Intermediate, Verified 02/03/19 10:29) Swelling of hands and/or feet No Known Drug Allergies Allergy (Verified 02/03/19 10:29) Past Medical History - General Information source: Patient - Social History Smoking Status: Current Every Day Smoker Family History: Reviewed & Not Pertinent Patient has suicidal ideation: No Patient has homicidal ideation: No - Past Medical History Cardiac Medical History: Reports: Hx Heart Attack - x1, "mild", Hx Hypertension, Hx Pulmonary Embolism Renal/ Medical History: Denies: Hx Peritoneal Dialysis Past Surgical History: Reports: Hx Section - x1 - Immunizations Immunizations up to date: Yes Hx Diphtheria, Pertussis, Tetanus Vaccination: Yes Review of Systems - Review of Systems Constitutional: denies: Fever EENT: No symptoms reported Cardiovascular: No symptoms reported Respiratory: No symptoms reported Gastrointestinal: See HPI Genitourinary: See HPI Female Genitourinary: See HPI Musculoskeletal: No symptoms reported Skin: See HPI Hematologic/Lymphatic: No symptoms reported Neurological/Psychological: No symptoms reported Physical Exam - Vital signs Vitals: Temp Pulse Resp BP Pulse Ox 98.0 F 60 18 133/88 H 100 06/10/19 14:54 06/10/19 14:54 06/10/19 14:54 06/10/19 14:54 06/10/19 14:54 - Notes Notes: GENERAL: Alert, interacts well. No acute distress. HEAD: Normocephalic, atraumatic. EYES: Pupils equal, round, and reactive to light. Extraocular movements intact. ENT: Oral mucosa moist, tongue midline. NECK: Full range of motion. Supple. Trachea midline. LUNGS: Clear to auscultation bilaterally, no wheezes, rales, or rhonchi. No respiratory distress. HEART: Regular rate and rhythm. No murmur ABDOMEN: Soft, no McBurney's point tenderness, no Carmona sign noted. Slight tenderness left upper quadrant, no left lower quadrant pain. Non-distended. Bowel sounds present in all 4 quadrants. EXTREMITIES: Moves all 4 extremities spontaneously. No edema, normal radial and dorsalis pedis pulses bilaterally. No cyanosis. BACK: no cervical, thoracic, lumbar midline tenderness. No saddle anesthesia, normal distal neurovascular exam. No CVA tenderness noted bilaterally. NEUROLOGICAL: Alert and oriented x3. Normal speech. cranial nerves II through XII grossly intact. PSYCH: Normal affect, normal mood. SKIN: Warm, dry, normal turgor. No rashes noted. 0.25 cm laceration noted to the right distal anterior index finger, bleeding controlled. Course - Re-evaluation Re-evalutation: Laboratory 06/10/19 06/10/19 06/10/19 15:44 15:44 15:44 WBC 6.6 RBC 3.83 Hgb 12.0 Hct 35.7 L MCV 93 MCH 31.2 MCHC 33.6 RDW 14.0 Plt Count 428 Lymph % (Auto) 25.4 [place] % (Auto) 9.6 Eos % (Auto) 1.1 Baso % (Auto) 0.4 Absolute Neuts (auto) 4.2 Absolute Lymphs (auto) 1.7 Absolute Monos (auto) 0.6 Absolute Eos (auto) 0.1 Absolute Basos (auto) 0.0 Seg Neutrophils % 63.5 Sodium 136.9 L Potassium 4.2 Chloride 101 Carbon Dioxide 25 Anion Gap 11 BUN 11 Creatinine 0.73 Est GFR ( Amer) > 60 Est GFR (MDRD) Non-Af > 60 Glucose 88 Calcium 9.7 Total Bilirubin 0.6 Direct Bilirubin 0.1 Neonat Total Bilirubin Not Reportable Neonat Direct Bilirubin Not Reportable Neonat Indirect Bili Not Reportable AST 23 ALT 18 Alkaline Phosphatase 75 Total Protein 7.5 Albumin 4.6 Lipase 68.2 Urine Color YELLOW Urine Appearance SLIGHTLY-CLOUDY Urine pH 5.0 Ur Specific [place] 1.027 Urine Protein NEGATIVE Urine Glucose (UA) NEGATIVE Urine Ketones NEGATIVE Urine Blood SMALL H Urine Nitrite NEGATIVE Urine Bilirubin NEGATIVE Urine Urobilinogen NEGATIVE Ur Leukocyte Esterase NEGATIVE Urine WBC (Auto) 4 Urine RBC (Auto) 3 Squamous Epi Cells Auto 7 Urine Mucus (Auto) MOD Urine Ascorbic Acid NEGATIVE Urine HCG, Qual NEGATIVE After treatments by RME provider. Patient voices she overall feels a lot better. X-ray of right index finger reveals no foreign bodies. It is a very small laceration, cleaned with soap and water. Patient voices her tetanus is up-to-date. Discussed use of nausea medication and Bentyl for home. Discussed staying well- hydrated and following up with primary care provider. At this time will discharge with return precautions and follow-up recommendations. Verbal discharge instructions given a the bedside and opportunity for questions given. Medication warnings reviewed. Patient is in agreement with this plan and has verbalized understanding of return precautions and the need for primary care follow-up in the next 24-72 hours. This medical record was dictated with voice recognizing software. There may be grammatical, syntax errors that are unintended. - Vital Signs Vital signs: Temp Pulse Resp BP Pulse Ox 98.0 F 60 18 133/88 H 100 06/10/19 14:54 06/10/19 14:54 06/10/19 14:54 06/10/19 14:54 06/10/19 14:54 - Laboratory Result Diagrams: 06/10/19 15:44 06/10/19 15:44 Laboratory results interpreted by me: 06/10/19 06/10/19 06/10/19 15:44 15:44 15:44 Hct 35.7 L Sodium 136.9 L Urine Blood SMALL H Discharge - Discharge Clinical Impression: Nausea vomiting and diarrhea Finger laceration Qualifiers: Encounter type: initial encounter Finger: index finger Damage to nail status: without damage Foreign body presence: without foreign body Laterality: right Qualified Code(s): S61.210A - Laceration without foreign body of right index finger without damage to nail, initial encounter Condition: Stable Disposition: HOME, SELF-CARE Instructions: Intravenous (IV) Fluids ([facility]), Laceration Care ([facility]), Vomiting ([facility]), Diarrhea, Nonspecific ([facility]) Additional Instructions: As we discussed you have been seen and treated in the emergency department for potential food poisoning. Please use nausea medication and antispasmodics as prescribed. Please also try to stay well-hydrated with Gatorade, water, Pedialyte. Please follow-up with a primary care provider in the next 24 to 48 hours. Return to the emergency room for any concerns. Prescriptions: Dicyclomine HCl [Bentyl 20 mg Tablet] 20 mg PO QID #20 tablet Ondansetron [Zofran Odt 4 mg Tablet] 2 tab PO Q6 PRN #16 tab.rapdis PRN Reason: For Nausea/Vomiting Forms: Return to Work
--- NOTE | 2019-06-10 19:08 | RADIOLOGY REPORT (SQ) ---
EXAM DESCRIPTION: FINGER RIGHT COMPLETED DATE/TIME: 06/10/2019 6:55 pm REASON FOR STUDY: index, lac with glass COMPARISON: None. NUMBER OF VIEWS: Three views. TECHNIQUE: AP, lateral, and oblique images acquired of the right second finger. LIMITATIONS: None. FINDINGS: MINERALIZATION: Normal. BONES: No acute fracture or dislocation. No worrisome bone lesions. SOFT TISSUES: No radiopaque foreign body is seen. OTHER: No other significant finding. IMPRESSION: No radiopaque foreign body is seen. COMMENT: SITE OF TRAUMA/COMPLAINT MARKED/STAMP COMPLETED: Yes TECHNICAL DOCUMENTATION: JOB ID: [id number] [email or web address]- All Rights Reserved Reading location - IP/workstation name: [email or web address]
[2019-06-10 19:25] VITALS: BP 130/74
== END 2019-06-10 19:24 | disposition home or self-care (01) ==
LOC: ER 14:44
DX: S61.210A Laceration without foreign body of right index finger without damage to nail, initial encounter (principal); R11.2 Nausea with vomiting, unspecified; R19.7 Diarrhea, unspecified; W26.0XXA Contact with knife, initial encounter; F17.200 Nicotine dependence, unspecified, uncomplicated; I25.2 Old myocardial infarction; I10 Essential (primary) hypertension; Z86.711 Personal history of pulmonary embolism
CPT/HCPCS: 36415; 83690; 85025; 81025; 80053; 81001; 73140; J3490; J2405; J7030

== ENCOUNTER 2019-10-09 08:02 | Emergency (ER) | payer MEDICAID ==
--- NOTE | 2019-10-09 08:46 | ER Document Report ---
HPI - HPI Patient complains to provider of: Left foot pain Time Seen by Provider: 10/09/19 08:38 Onset: Yesterday Quality of pain: Achy, Throbbing Severity: Severe Pain Level: 5 Context: 39-year-old female presents emergency department with complaints of left foot pain. Reports she kicked her brand-new couch last night on accident. She reports it and hurt that much last night but this morning she woke up she could not walk. She reports she is kept her foot elevated placed ice on it and also took ibuprofen without relief of symptoms. Denies past medical history of injury to the foot. No obvious deformity. Cap refill less than 2 seconds good pedal pulse. Associated Symptoms: None Exacerbated by: Movement, Walking, Other - Touch Relieved by: Denies Similar symptoms previously: No Recently seen / treated by doctor: No - CONSTITUTIONAL Constitutional: DENIES: Fever, Chills - EENT EENT: DENIES: Sore Throat, Ear Pain, Eye problems - NEURO Neurology: DENIES: Headache, Weakness, Vision blurred, Dizzinesss / Vertigo - CARDIOVASCULAR Cardiovascular: DENIES: Chest pain - RESPIRATORY Respiratory: DENIES: Trouble Breathing, Coughing - GASTROINTESTINAL Gastrointestinal: DENIES: Abdominal Pain, Black / Bloody Stools - REPRODUCTIVE LMP: 25 September 2019 Reproductive: DENIES: : - MUSCULOSKELETAL Musculoskeletal: REPORTS: Extremity pain Past Medical History - General Information source: Patient - Social History Smoking Status: Never Smoker Chew tobacco use (# tins/day): No Frequency of alcohol use: None Drug Abuse: None Occupation: Cleaning service Family History: Reviewed & Not Pertinent Patient has suicidal ideation: No Patient has homicidal ideation: No - Past Medical History Cardiac Medical History: Reports: Hx Heart Attack - x1, "mild", Hx Hypertension, Hx Pulmonary Embolism Renal/ Medical History: Denies: Hx Peritoneal Dialysis Past Surgical History: Reports: Hx Section - x1 - Immunizations Immunizations up to date: Yes Hx Diphtheria, Pertussis, Tetanus Vaccination: Yes Vertical Provider Document - CONSTITUTIONAL Agree With Documented VS: Yes Exam Limitations: No Limitations General Appearance: WD/WN, Mild Distress - Winces when foot is touched - INFECTION CONTROL TRAVEL OUTSIDE OF THE [place] IN LAST 30 DAYS: No - HEENT HEENT: Atraumatic, Normocephalic - NECK Neck: Supple - RESPIRATORY Respiratory: No Respiratory Distress - CARDIOVASCULAR Cardiovascular: Regular Rate - MUSCULOSKELETAL/EXTREMETIES Musculoskeletal/Extremeties: MAEW, FROM, Tender - left tobacco wrapping machine tender to palpate dorsally and plantar, no obvious deformity cap refill less than 2 seconds good pedal pulse - NEURO Level of Consciousness: Awake, Alert, Appropriate Motor/Sensory: No Motor Deficit - DERM Integumentary: Warm, Dry Course - Re-evaluation Re-evalutation: 10/09/19 08:45 Patient instructed on x-ray. 10/09/19 09:20 Patient instructed on negative x-ray. Placed Nito wrap crutches instructed to take Tylenol Motrin as indicated for pain rest ice elevate and follow-up with primary care provider for recheck within 1 week and referral to orthopedics for continued pain. Foot X-Ray 10/09/19 08:22 IMPRESSION: NEGATIVE STUDY OF THE LEFT FOOT. NO RADIOGRAPHIC EVIDENCE OF ACUTE INJURY. 0 - Vital Signs Vital signs: Temp Pulse Resp BP Pulse Ox 97.6 F 63 18 147/89 H 100 10/09/19 08:10 10/09/19 08:10 10/09/19 08:10 10/09/19 08:10 10/09/19 08:10 - Diagnostic Test Radiology reviewed: Image reviewed, Reports reviewed Procedures - Immobilization Left Foot Pre-Proc Neuro Vasc Exam: Normal Immobilizer type: Nito wrap Performed by: PCT Post-Proc Neuro Vasc Exam: Unchanged from pre-exam Alignment checked and good: Yes Discharge - Discharge Clinical Impression: Injury of left foot Qualifiers: Encounter type: initial encounter Qualified Code(s): S99.922A - Unspecified injury of left foot, initial encounter Condition: Stable Disposition: HOME, SELF-CARE Instructions: Acetaminophen, Nito Wrap ([facility]), Use of Crutches ([facility]), Use of Evkw-Pvm-Mkozcps Ibuprofen ([facility]), Ice & Elevation ([facility]) Additional Instructions: *You have been evaluated for a foot injury *The x-ray was negative for an acute fracture *Take Tylenol or Motrin as indicated for pain *Rest/Ice/Elevate your foot *Maintain the nito wrap and use your crutches for the next three days *Follow up with a primary care provider within 1 week for recheck and referral to orthopedics as indicated *Return to ED for worsening condition, changes, needs Monitor your blood pressure. Your blood pressure was elevated today. This may be because you were anxious, in pain or because you need medication. It is important to follow up with your primary care provider for full evaluation. Forms: Elevated Blood Pressure, Return to Work Referrals: DARIAN FELICIANO, [Primary Care Provider] - Follow up in 1 week
--- NOTE | 2019-10-09 09:12 | RADIOLOGY REPORT (SQ) ---
EXAM DESCRIPTION: FOOT LEFT COMPLETE COMPLETED DATE/TIME: 10/09/2019 9:01 am REASON FOR STUDY: hit foot on sofa COMPARISON: None. NUMBER OF VIEWS: Three views. TECHNIQUE: AP, lateral and oblique radiographic images acquired of the left foot. LIMITATIONS: None. FINDINGS: MINERALIZATION: Normal. BONES: No acute fracture or dislocation. No worrisome bone lesions. JOINTS: No effusions. SOFT TISSUES: No soft tissue swelling. No foreign body. OTHER: No other significant finding. IMPRESSION: NEGATIVE STUDY OF THE LEFT FOOT. NO RADIOGRAPHIC EVIDENCE OF ACUTE INJURY. TECHNICAL DOCUMENTATION: JOB ID: [id number] [employer]- All Rights Reserved Reading location - IP/workstation name: [email or web address]
[2019-10-09 10:15] VITALS: BP 141/93
== END 2019-10-09 10:15 | disposition home or self-care (01) ==
LOC: ER 08:02
DX: S99.922A Unspecified injury of left foot, initial encounter (principal); M79.672 Pain in left foot; W22.03XA Walked into furniture, initial encounter; I10 Essential (primary) hypertension
CPT/HCPCS: 99283

== ENCOUNTER 2020-01-14 15:01 | Emergency (ER) | payer SELFPAY ==
--- NOTE | 2020-01-14 15:14 | ER Document Report ---
ED Medical Screen (RME) - General Chief Complaint: Bloody Stools Stated Complaint: BLOODY STOOL/DIARRHEA/BACK PAIN Time Seen by Provider: 01/14/20 15:05 Primary Care Provider: DARIAN FELICIANO DO [Primary Care Provider] - Follow up as needed TRAVEL OUTSIDE OF THE [place] IN LAST 30 DAYS: No - HPI Notes: 01/14/20 15:12 39-year-old female presents emergency room for complaints of bloody diarrhea with lower back pain for the last 2 months. Patient states what brought her to the emergency room was that her lower back pain became progressively worse within the last 24 hours. Never had a colonoscopy or been evaluated by a provider for these issues. No history of ulcerative colitis, no travel outside of the country, no recent antibiotic use. Denies any fevers chills, nausea, v omiting, abdominal pain. States blood is bright red. Has not followed up with a primary care provider for this issue. PHYSICAL EXAMINATION: Vital signs reviewed. GENERAL: Well-appearing, well-nourished and in no acute distress. LUNGS: No respiratory distress MDM: Patient seen and examined for rapid initial assessment. Vital signs reviewed. A comprehensive ED assessment and evaluation of the patient, analysis of test results and completion of the medical decision making process will be conducted by additional ED providers. *Note is created using voice recognition software and may contain spelling, syntax or grammatical errors. - Related Data Allergies/Adverse Reactions: Pork/Porcine Containing Products [Pork/Porcine Product Derivatives] Allergy (Intermediate, Verified 10/09/19 09:15) Swelling of hands and/or feet No Known Drug Allergies Allergy (Verified 10/09/19 09:15) Past Medical History - Past Medical History Cardiac Medical History: Reports: Hx Heart Attack - x1, "mild", Hx Hypertension, Hx Pulmonary Embolism Renal/ Medical History: Denies: Hx Peritoneal Dialysis Past Surgical History: Reports: Hx Section - x1 - Immunizations Immunizations up to date: Yes Hx Diphtheria, Pertussis, Tetanus Vaccination: Yes Physical Exam - Vital signs Vitals: Temp 98.7 F 01/14/20 15:05 Course - Vital Signs Vital signs: Temp Pulse Resp BP Pulse Ox 98.7 F 01/14/20 15:05 Doctor's Discharge - Discharge Referrals: DARIAN FELICIANO DO [Primary Care Provider] - Follow up as needed
[2020-01-14 15:40] LABS: ABSOLUTE BASOPHILS # (AUTO) 0.1 10^3/uL (0.0-0.2); ABSOLUTE EOSINOPHILS # (AUTO) 0.3 10^3/uL (0.0-0.6); ABSOLUTE LYMPHOCYTES (AUTO) 1.8 10^3/uL (0.5-4.7); ABSOLUTE MONOCYTES (AUTO) 0.8 10^3/uL (0.1-1.4); ABSOLUTE NEUT (AUTO) 7.8 10^3/uL (1.7-8.2); BASOPHILS % (AUTO) 0.7 % (0-2); EOSINOPHILS % (AUTO) 2.7 % (0-6); HEMATOCRIT 30.3 % (36.0-47.0); HEMOGLOBIN 10.1 g/dL (12.0-15.5); LYMPHOCYTES % (AUTO) 16.6 % (13-45); MEAN CORPUSCULAR HEMOGLOBIN 28.9 pg (27.0-33.4); MEAN CORPUSCULAR HGB CONC 33.2 g/dL (32.0-36.0); MEAN CORPUSCULAR VOLUME 87 fl (80-97); MONOCYTES % (AUTO) 7.2 % (3-13); PLATELET COUNT 690 10^3/uL (150-450); RED BLOOD COUNT 3.49 10^6/uL (3.72-5.28); RED CELL DISTRIBUTION WIDTH 14.2 % (11.5-14.0); SEGMENTED NEUTROPHILS % (AUTO) 72.8 % (42-78); TOTAL CELLS COUNTED % (AUTO) 100 %; WHITE BLOOD COUNT 10.8 10^3/uL (4.0-10.5)
[2020-01-14 16:07] LABS: APPEARANCE,URINE SLIGHTLY-CLOUDY; BILIRUBIN,URINE NEGATIVE (NEGATIVE); COLOR,URINE YELLOW; GLUCOSE, URINE NEGATIVE (NEGATIVE); KETONES,URINE TRACE mg/dL (NEGATIVE); LEUKOCYTE ESTERASE,URINE TRACE (NEGATIVE); NITRITE,URINE NEGATIVE (NEGATIVE); PROTEIN,URINE 30 mg/dL (NEGATIVE); URINE SPECIFIC GRAVITY 1.019; UROBILINOGEN,URINE NEGATIVE mg/dL (<2.0)
[2020-01-14 16:08] LABS: ALBUMIN 3.5 g/dL (3.5-5.0); ALKALINE PHOSPHATASE 82 U/L (38-126); ANION GAP 7 (5-19); ASPARTATE AMINO TRANSFERASE 17 U/L (14-36); BILIRUBIN,TOTAL 0.4 mg/dL (0.2-1.3); BLOOD UREA NITROGEN 9 mg/dL (7-20); CALCIUM 8.8 mg/dL (8.4-10.2); CARBON DIOXIDE 30 mmol/L (22-30); CHLORIDE 97 mmol/L (98-107); GLUCOSE 98 mg/dL (75-110); POTASSIUM 3.3 mmol/L (3.6-5.0); TOTAL PROTEIN 6.8 g/dL (6.3-8.2)
--- NOTE | 2020-01-14 16:34 | ER Document Report ---
ED GI/ - General Chief Complaint: Bloody Stools Stated Complaint: BLOODY STOOL/DIARRHEA/BACK PAIN Time Seen by Provider: 01/14/20 15:05 Primary Care Provider: DARIAN FELICIANO DO [Primary Care Provider] - Follow up in 3-5 days Mode of Arrival: Ambulatory Information source: Patient Notes: 39-year-old female presented to ED for complaint of bloody diarrhea low back p ain abdominal pain for the last 2 months. She states she came to the emergency room because her abdomen and back pain is getting much worse for the last 24 hours. She states is actually been worse since November. It actually makes it hard for her to take a deep breath or cough due to the pain. She states she is never had a colonoscopy or been evaluated for this pain. She has no medical history except for mild high blood pressure pulmonary emboli and . She is alert oriented respirations regular nonlabored speaking in full sentences. TRAVEL OUTSIDE OF THE [place] IN LAST 30 DAYS: No - HPI Patient complains to provider of: Abdominal pain, Diarrhea, Other - Back pain bloody stool Onset: Other - Months Timing/Duration: Intermittent, Worse Quality of pain: Sharp, Throbbing Severity at maximum: Moderate Severity in ED: Moderate Pain Level: 4 Location: RUQ, RLQ, Right flank, Low back Vaginal bleeding (Compared to normal period): None Associated symptoms: Diarrhea Exacerbated by: Movement, Walking, Deep breathing Relieved by: Denies Similar symptoms previously: Yes Recently seen / treated by doctor: No - Related Data Allergies/Adverse Reactions: Pork/Porcine Containing Products [Pork/Porcine Product Derivatives] Allergy (Intermediate, Verified 10/09/19 09:15) Swelling of hands and/or feet No Known Drug Allergies Allergy (Verified 10/09/19 09:15) Past Medical History - General Information source: Patient - Social History Smoking Status: Never Smoker Frequency of alcohol use: None Drug Abuse: None Family History: Reviewed & Not Pertinent Patient has homicidal ideation: No - Past Medical History Cardiac Medical History: Reports: Hx Heart Attack - x1, "mild", Hx Hypertension, Hx Pulmonary Embolism Pulmonary Medical History: Reports: None EENT Medical History: Reports: None Neurological Medical History: Reports: None Endocrine Medical History: Reports: None Renal/ Medical History: Reports: None Malignancy Medical History: Reports: None GI Medical History: Reports: None Musculoskeletal Medical History: Reports None Skin Medical History: Reports None Psychiatric Medical History: Reports: None Traumatic Medical History: Reports: None Infectious Medical History: Reports: None Surgical Hx: Negative Past Surgical History: Reports: None, Hx Section - x1 - Immunizations Immunizations up to date: Yes Hx Diphtheria, Pertussis, Tetanus Vaccination: Yes Review of Systems - Review of Systems Constitutional: No symptoms reported EENT: No symptoms reported Cardiovascular: No symptoms reported Respiratory: No symptoms reported Gastrointestinal: No symptoms reported, Abdominal pain, Diarrhea, Nausea Genitourinary: Flank pain Female Genitourinary: No symptoms reported Musculoskeletal: Back pain Skin: No symptoms reported Hematologic/Lymphatic: No symptoms reported Neurological/Psychological: No symptoms reported -: Yes All other systems reviewed and negative Physical Exam - Vital signs Vitals: Temp Pulse Resp BP Pulse Ox 98.7 F 85 18 127/80 H 99 01/14/20 15:05 01/14/20 15:05 01/14/20 15:05 01/14/20 15:05 01/14/20 15:05 Interpretation: Normal - General General appearance: Appears well, Alert - HEENT Head: Normocephalic, Atraumatic Eyes: Normal Pupils: PERRL - Respiratory Respiratory status: No respiratory distress Chest status: Nontender Breath sounds: Normal Chest palpation: Normal - Cardiovascular Rhythm: Regular Heart sounds: Normal auscultation Murmur: No - Abdominal Inspection: Normal Distension: No distension Bowel sounds: Normal Tenderness: Tender - Upper and lower right abdomen upper and lower right back flank Organomegaly: No organomegaly - Rectal Stool: Heme positive Hemorrhoids: None - Back Back: Normal, Tender - Right 4 and flank back pain - Extremities General upper extremity: Normal inspection, Nontender, Normal color, Normal ROM, Normal temperature General lower extremity: Normal inspection, Nontender, Normal color, Normal ROM, Normal temperature, Normal weight bearing. No: Bo's sign - Neurological Neuro grossly intact: Yes Cognition: Normal Orientation: AAOx4 [place] Coma Scale Eye Opening: Spontaneous Marlen Coma Scale Verbal: Oriented Mar[place] Coma Scale Motor: Obeys Commands [place] Coma Scale Total: 15 Speech: Normal Motor strength normal: LUE, RUE, LLE, RLE Sensory: Normal - Psychological Associated symptoms: Normal affect, Normal mood - Skin Skin Temperature: Warm Skin Moisture: Dry Skin Color: Normal Course - Re-evaluation Re-evalutation: 01/14/20 21:[address] scan with Dr[address] joseph. Also discussed lab work. He agreed Cipro and Flagyl was proper treatment for this colitis. I then discussed the lab results and CT results with the patient written reports of the labs and CT given to the patient. Patient was started on Cipro and Flagyl encouraged to get probiotics for the side effects of the antibiotics. She was treated with Toradol IV fluids and morphine during her stay. She verbalized understanding and agreement with treatment plan. She did verbalize she would follow-up with her primary care doctor. Patient was discharged home. - Vital Signs Vital signs: Temp Pulse Resp BP Pulse Ox 98.6 F 75 16 124/89 H 99 01/14/20 21:08 01/14/20 21:08 01/14/20 21:08 01/14/20 21:08 01/14/20 21:08 - Laboratory Result Diagrams: 01/14/20 15:30 01/14/20 15:30 Laboratory results interpreted by me: 01/14/20 01/14/20 01/14/20 15:30 15:30 15:53 WBC 10.8 H RBC 3.49 L Hgb 10.1 L Hct 30.3 L RDW 14.2 H Plt Count 690 H Sodium 133.8 L Potassium 3.3 L Chloride 97 L Urine Protein Urine Ketones Urine Blood Ur Leukocyte Esterase Stool for White Cells MANY H 01/14/20 15:53 WBC RBC Hgb Hct RDW Plt Count Sodium Potassium Chloride Urine Protein 30 H Urine Ketones TRACE H Urine Blood SMALL H Ur Leukocyte Esterase TRACE H Stool for White Cells - Diagnostic Test Radiology reviewed: Image reviewed, Reports reviewed Discharge - Discharge Clinical Impression: Colitis Condition: Stable Disposition: HOME, SELF-CARE Additional Instructions: Colitis, Nonspecific Colitis is an inflammatory disease of the large intestine which affects the lining of the bowel. The cause is uncertain, though it is often caused by an infection. In some cases, the symptoms resolve and can return again in the future. Colitis is characterized by abdominal pain, often nausea and vomiting, and either diarrhea or difficulty with bowel movements. Sometimes blood will be present in the bowel movements. Fever is often present as well. Milder cases of colitis can be managed as an outpatient with medications for nausea and vomiting and pain, oral fluid therapy, and perhaps antibiotics, if a bacterial origin is suspected. Antidiarrhea medicine should usually be avoided in colitis. If you have increasing abdominal pain, repeated vomiting, fever, rectal bleeding, or worsening diarrhea, you should return for re-evaluation. Ciprofloxacin You have been given an antibacterial agent, ciprofloxacin (Cipro). This medicine is not related to the penicillins, sulfas, cephalosporins, or tetracyclines. It is often given to patients who are allergic to these drugs. It has been chosen for you either because other drugs are not appropriate, or because of the nature of your problem. Cipro should not be taken with antacids, as these can decrease its effectiveness. It can be taken without regard to meals. CIPRO SHOULD NOT BE TAKEN BY CHILDREN, NURSING WOMEN, OR WOMEN. Although Cipro is usually well-tolerated, common side effects can include nausea and diarrhea. Contact your doctor if you experience any unusual symptoms while on this medication, such as joint pain or swelling, shortness of breath, wheezing, faintness, or hives. Metronidazole Metronidazole (Flagyl) has been prescribed. This medication is used to kill a type of bacteria called anaerobes, and protozoan parasites such as trichomonas and Giardia. Flagyl often causes a metallic taste in the mouth and mild nausea. Do not use alcohol in any form with Flagyl (including alcohol in medication elixirs). Flagyl interacts with alcohol to cause flushing, palpitations, headache, stomach cramps, and vomiting. Do not use Flagyl if you are taking Antabuse (disulfiram). Call the doctor at once if you develop rash, shortness of breath, itching, or lightheadedness. Acetaminophen Acetaminophen may be taken for pain relief or fever control. It's much safer than aspirin, offering a wider range of "safe" dosages. It is safe during . Some brand names are Tylenol, Panadol, Datril, Anacin 3, Tempra, and Liquiprin. Acetaminophen can be repeated every four hours. The following are maximum recommended dosages: WEIGHT Dose Drops Elixir Chewable(80mg) (LBS.) drprs=droppers tsp=teaspoon 6 40 mg .4 ml (1/2) 6-11 80 mg .8 ml (full) 1/2 tsp 1 tab 12-16 120 mg 1 1/2 drprs 3/4 tsp 1 1/2 tabs 17-23 160 mg 2 drprs 1 tsp 2 tabs 24-30 240 mg 3 drprs 1 1/2 tsp 3 tabs 30-35 320 mg 2 tsp 4 tabs 36-41 360 mg 2 1/4 tsp 4 1/2 tabs 42-47 400 mg 2 1/2 tsp 5 tabs 48-53 480 mg 3 tsp 6 tabs 54-59 520 mg 3 1/4 tsp 6 1/2 tabs 60-64 560 mg 3 1/2 tsp 7 tabs 65-70 600 mg 3 3/4 tsp 7 1/2 tabs 71-76 640 mg 4 tsp 8 tabs 77-82 720 mg 4 1/2 tsp 9 tabs 83-88 800 mg 5 tsp 10 tabs >89 pounds or adults 650 mg to 900 mg Acetaminophen can be repeated every four hours. Maximum daily dose not to exceed 4000 mg. These maximum recommended dosages are slightly higher than the dosages written on the product container, but these dosages are very safe and well below the toxic dosage for acetaminophen. Intravenous (IV) Fluids As part of your care today, you received intravenous (IV) fluids. IV fluids are administered to patients who are dehydrated or to those who have certain chemical (electrolyte) abnormalities that need correcting. Pain Medication Injection You have received an injection of a pain medication. You should experience significant pain relief within 45 minutes. This drug is a narcotic -- it will impair your judgement, slow your reaction time and make you sleepy (as well as relieve your pain). Narcotics also can cause nausea. You should not drive, work with machinery, or perform any task requiring mental alertness until all effects of the medication are gone -- six to eight hours. Do not take any alcohol, or sedatives, and do not take any other medication without checking with your physician. These by any probiotic [id number] to reduce the risk of side effects from your antibiotics. FOLLOW-UP CARE: If you have been referred to a physician for follow-up care, call the physicians office for an appointment as you were instructed or within the next two days. If you experience worsening or a significant change in your symptoms, notify the physician immediately or return to the Emergency Department at any time for re-evaluation. Prescriptions: Ciprofloxacin HCl [Cipro 500 mg Tablet] 500 mg PO BID #14 tablet Metronidazole [Flagyl 500 mg Tablet] 500 mg PO BID #14 tablet Forms: Elevated Blood Pressure, Return to Work Referrals: DARIAN FELICIANO DO [Primary Care Provider] - Follow up in 3-5 days
[2020-01-14] MEDS ORDERED: NORMAL SALINE 1000 ML 1,000 ML IV ONE (16:37)
[2020-01-14] MEDS ORDERED: KETOROLAC TROMETHAMINE INJ/PF 30 MG/1 ML SDV IV ONE (18:11)
[2020-01-14] MEDS ORDERED: MORPHINE SULFATE 10 MG/ML INJ IV ONE (18:11)
[2020-01-14 18:50] LABS: C DIFFICILE GDH NEGATIVE (NEGATIVE)
--- NOTE | 2020-01-14 19:27 | RADIOLOGY REPORT (SQ) ---
EXAM DESCRIPTION: CT ABD/PELVIS WITH IV ORAL IMAGES COMPLETED DATE/TIME: 01/14/2020 7:05 pm REASON FOR STUDY: blood diarrhea abdomen and back pain COMPARISON: None. TECHNIQUE: CT scan of the abdomen and pelvis performed using helical scanning technique with dynamic intravenous contrast injection. Patient drank limited oral contrast. Images reviewed with lung, sof t tissue, and bone windows. Reconstructed coronal and sagittal MPR images reviewed. Delayed images fo r evaluation of the urinary system also acquired. All images stored on PACS. All CT scanners at this facility use dose modulation, iterative reconstruction, and/or weight based d osing when appropriate to reduce radiation dose to as low as reasonably achievable (ALARA). [facility]: Dose Right [facility]: CareDose [facility]: Dose Right [facility]: Teradose 4D [facility]: OpenSpan CONTRAST TYPE AND DOSE: contrast/concentration: Isovue 350.00 mg/ml; Total Contrast Delivered: 78.0 ml; Total Saline Delivered: 31.0 ml RENAL FUNCTION: Creatinine 0.6 RADIATION DOSE: CT Rad equipment meets quality standard of care and radiation dose reduction techniq ues were employed. CTDIvol: 11.0 - 14.8 mGy. DLP: 1497 mGy-cm.. LIMITATIONS: None. FINDINGS: LOWER CHEST: No significant findings. No nodules or infiltrates. LIVER: Normal size. No masses. No dilated ducts. SPLEEN: Normal size. No focal lesions. PANCREAS: No masses. No significant calcifications. No adjacent inflammation or peripancreatic fluid collections. Pancreatic duct not dilated. GALLBLADDER: No identified stones by CT criteria. No inflammatory changes to suggest cholecystitis. ADRENAL GLANDS: No significant masses or asymmetry. RIGHT KIDNEY AND URETER: No solid masses. No significant calcifications. No hydronephrosis or hyd roureter. LEFT KIDNEY AND URETER: No solid masses. No significant calcifications. No hydronephrosis or hydr oureter. AORTA AND VESSELS: No aneurysm. No dissection. Renal arteries, SMA, celiac without stenosis. RETROPERITONEUM: No retroperitoneal adenopathy, hemorrhage or masses. BOWEL AND PERITONEAL CAVITY: Patient drank limited oral contrast. Stomach and small bowel are decomp ressed. Small amount of stool in the ascending and transverse colon. Splenic flexure and descending colon are decompressed with questionable mild wall thickening and inflammatory change along the colo emmett mesenteric border, best shown on coronal images 34 through 48. No pericolic abscess. No free in traperitoneal air. Trace cul-de-sac free fluid APPENDIX: Normal. PELVIS: No mass. No free fluid. Normal bladder. Normal size female pelvic organs. Incidental findi ng of a 2 cm ruptured follicle remnant on the left ovary on coronal image 44 and axial image 75. ABDOMINAL WALL: No masses. Tiny midline supraumbilical fat containing ventral hernia, best shown on sagittal image 56 BONES: No significant or acute findings. OTHER: No other significant finding. IMPRESSION: Ruptured left ovarian follicle Decompressed descending colon. Question wall thickening and mild signs of chronic inflammation. No pericolic abscess Tiny supraumbilical midline ventral hernia containing fat TECHNICAL DOCUMENTATION: JOB ID: [id number] Quality ID # [id number]: Final reports with documentation of one or more dose reduction techniques (e.g., Au tomated exposure control, adjustment of the mA and/or kV according to patient size, use of iterative reconstruction technique) 2010 [employer]- All Rights Reserved Reading location - IP/workstation name: [email or web address]
[2020-01-14] MEDS ORDERED: METRONIDAZOLE 500 MG TABLET PO ONE (20:45)
[2020-01-14] MEDS ORDERED: CIPROFLOXACIN HCL 500 MG TABLET PO ONE (20:45)
[2020-01-14 21:11] VITALS: BP 124/89
== END 2020-01-14 21:08 | disposition home or self-care (01) ==
LOC: ER 15:01
DX: K52.9 Noninfective gastroenteritis and colitis, unspecified (principal); K92.1 Melena; M54.5 Low back pain; R10.11 Right upper quadrant pain; R10.13 Epigastric pain; R10.9 Unspecified abdominal pain; I10 Essential (primary) hypertension; Z91.018 Allergy to other foods
CPT/HCPCS: 99284; 96374; 96375; 36415; 87045; 89055; 87205; 85025; 82270; 81025; 80053; 81001; 87324; 87449; 74177; J1885; J2270; J7030

== ENCOUNTER 2020-02-08 08:31 | Emergency (ER) | payer SELFPAY ==
[2020-02-08] MEDS ORDERED: ACETAMINOPHEN 325 MG TABLET PO ONE (08:42)
--- NOTE | 2020-02-08 09:26 | ER Document Report ---
ED Hand/Wrist Injury - General Chief Complaint: Wrist Injury Stated Complaint: FALL/LEFT WRIST PAIN SWELLING Time Seen by Provider: 02/08/20 09:20 Primary Care Provider: DARIAN FELICIANO DO [Primary Care Provider] - Follow up as needed FEDERICO CRESPO DO [ACTIVE STAFF] - Follow up as needed Mode of Arrival: Ambulatory Information source: Patient Notes: 39-year-old female presented to ED for complaint of pain to her left wrist since yesterday. She states she no when mopping the floor yesterday landing on her outstretched hand. The pain pain started at that time but this morning she woke up and the pain and swelling was much worse. She is alert oriented respirations regular and unlabored speaking in full sentences walks with even steady gait. TRAVEL OUTSIDE OF THE [place] IN LAST 30 DAYS: No - HPI Injury to: Wrist - Left Onset: Yesterday Where: Home, Indoors Timing: Still present, Worse Quality of pain: Sharp, Throbbing Severity: Severe Pain Level: 5 Context: Fall, Swelling - Related Data Allergies/Adverse Reactions: Pork/Porcine Containing Products [Pork/Porcine Product Derivatives] Allergy (Intermediate, Verified 02/08/20 08:34) Swelling of hands and/or feet No Known Drug Allergies Allergy (Verified 02/08/20 08:34) Past Medical History - General Information source: Patient - Social History Smoking Status: Never Smoker Chew tobacco use (# tins/day): No Frequency of alcohol use: None Drug Abuse: None Family History: Reviewed & Not Pertinent Patient has homicidal ideation: No - Past Medical History Cardiac Medical History: Reports: Hx Heart Attack - x1, "mild", Hx Hypertension, Hx Pulmonary Embolism Pulmonary Medical History: Reports: None EENT Medical History: Reports: None Neurological Medical History: Reports: None Endocrine Medical History: Reports: None Renal/ Medical History: Reports: None Malignancy Medical History: Reports: None GI Medical History: Reports: None Musculoskeletal Medical History: Reports None Skin Medical History: Reports None Psychiatric Medical History: Reports: None Traumatic Medical History: Reports: None Infectious Medical History: Reports: None Past Surgical History: Reports: Hx Section - x1 - Immunizations Immunizations up to date: Yes Hx Diphtheria, Pertussis, Tetanus Vaccination: Yes Review of Systems - Review of Systems Constitutional: No symptoms reported EENT: No symptoms reported Cardiovascular: No symptoms reported Respiratory: No symptoms reported Gastrointestinal: No symptoms reported Genitourinary: No symptoms reported Female Genitourinary: No symptoms reported Musculoskeletal: Joint pain, Joint swelling Skin: No symptoms reported Hematologic/Lymphatic: No symptoms reported Neurological/Psychological: No symptoms reported -: Yes All other systems reviewed and negative Physical Exam - Vital signs Vitals: Temp Pulse Resp BP Pulse Ox 97.5 F 76 18 127/79 H 100 02/08/20 08:36 02/08/20 08:36 02/08/20 08:36 02/08/20 08:36 02/08/20 08:36 Interpretation: Normal - General General appearance: Appears well, Alert - HEENT Head: Normocephalic, Atraumatic Eyes: Normal Pupils: PERRL - Respiratory Respiratory status: No respiratory distress Chest status: Nontender Breath sounds: Normal Chest palpation: Normal - Cardiovascular Rhythm: Regular Heart sounds: Normal auscultation Murmur: No - Abdominal Inspection: Normal Distension: No distension Bowel sounds: Normal Tenderness: Nontender Organomegaly: No organomegaly - Back Back: Normal, Nontender - Extremities General upper extremity: Normal color, Normal temperature General lower extremity: Normal inspection, Nontender, Normal color, Normal ROM, Normal temperature, Normal weight bearing. No: Bo's sign Wrist: Tender, Ecchymosis - Good range of motion, Limited ROM, Other - Swelling to just above the wrist - Neurological Neuro grossly intact: Yes Cognition: Normal Orientation: AAOx4 [place] Coma Scale Eye Opening: Spontaneous [place] Coma Scale Verbal: Oriented [place] Coma Scale Motor: Obeys Commands [place] Coma Scale Total: 15 Speech: Normal Motor strength normal: LUE, RUE, LLE, RLE Sensory: Normal - Psychological Associated symptoms: Normal affect, Normal mood - Skin Skin Temperature: Warm Skin Moisture: Dry Skin Color: Normal Course - Re-evaluation Re-evalutation: 02/08/20 21:09 Is no radiological evidence of injury to the left wrist. Written report of x- ray was given to the patient as well as instructions for elevation ice Tylenol and follow-up with orthopedics if it continues to hurt. She was treated with a cock-up splint to help with the discomfort to the wrist. She was told she just needed to wear this as long as the wrist hurt. Patient was given instructions on how to put the cock-up splint on and off. Patient was able to verbalize understanding and agreement with treatment plan and patient was discharged home. - Vital Signs Vital signs: Temp Pulse Resp BP Pulse Ox 97.5 F 76 18 127/79 H 100 02/08/20 08:36 02/08/20 08:36 02/08/20 08:36 02/08/20 08:36 02/08/20 08:36 - Diagnostic Test Radiology reviewed: Image reviewed, Reports reviewed Procedures - Immobilization Left Wrist Time completed: 11:25 Pre-Proc Neuro Vasc Exam: Normal Immobilizer type: Cock-up Performed by: PCT Post-Proc Neuro Vasc Exam: Normal Alignment checked and good: Yes Discharge - Discharge Clinical Impression: Fall Qualifiers: Encounter type: initial encounter Qualified Code(s): W19.XXXA - Unspecified fall, initial encounter Left wrist sprain Qualifiers: Encounter type: initial encounter Qualified Code(s): S63.502A - Unspecified sprain of left wrist, initial encounter Condition: Stable Disposition: HOME, SELF-CARE Additional Instructions: SPRAIN: Your injury is a sprain. A sprain results from stretching or tearing of the ligaments, usually from a twisting injury. The ligaments will require time and protection in order to heal properly. Many sprains are quite disabling and should be taken seriously. The usual initial treatment of sprains is cold packs, elevation, and rest of the injured area. Your physician has assessed the seriousness of your ligament injury, and has outlined a treatment plan. Understand that this treatment may change, depending on how you progress. If a re-examination was recommended, it is important that you follow up as instructed. Call the doctor any time if there is severe pain, numbness, or loss of function in the injured area. Splint Precautions A splint has been placed. This will protect the area while healing begins. Your problem does NOT normally require a cast. It MUST, however, be held still! Keep the splint on ALL THE TIME until instructed to remove it by the doctor. As you begin to use the area, be careful. You shouldn't do anything which causes discomfort -- you may disturb the injury even with the splint in place. After the initial period of rest and elevation, if splint does not prevent pain when you move, come back. You may require placement of a different splint, or a cast. If there is unexpected severe pain, or numbness, discoloration, or swelling beyond the splint, you should return at once. If you feel that the splint has broken or become loose, come back. ICE & ELEVATION: Apply ice packs frequently against the painful area. Many different schedules are recommended, such as "20 minutes on, 20 minutes off" or "one hour ice, two hours rest." If you need to work, you may need to go longer between ice treatments. You should plan to have the area ice packed AT LEAST one-fourth of the time. The ice should be applied over the wrap, tape, or splint, or over a layer of cloth -- not directly against the skin. Some ice bags have a built-in cloth and can be put directly on the skin. Your injured part should be elevated as much as possible over the next 48 hours. Try to keep the injury above the level of the heart. Avoid use of the injured area. Elevation and rest will decrease the swelling. USE OF NYMI-TIG-WSIEZSA IBUPROFEN: Ibuprofen (Advil, Nuprin, Medipren, Motrin IB) is a medication for fever and pain control. In addition, it has anti- inflammatory effects which may be beneficial, especially in the treatment of injuries. It's best to take ibuprofen with food. Persons with ulcer disease or allergy to aspirin should notify their physician of this before taking ibuprofen. Ibuprofen can be given every four to six hours, for a total of four doses daily. Age Pain or fever dose Antiinflammatory dose 6-8 yr 200 mg (1 tab) 200 mg (1 tab) 9-11 yr 200 mg (1 tab) 200-400 mg (1-2 tab) 11-14 yr 200-400 mg (1-2 tab) 400 mg (2 tab) 15-adult 400 mg (2 tab) 600 mg (3 tab) FOLLOW-UP CARE: If you have been referred to a physician for follow-up care, call the physicians office for an appointment as you were instructed or within the next two days. If you experience worsening or a significant change in your symptoms, notify the physician immediately or return to the Emergency Department at any time for re-evaluation. Forms: Return to Work Referrals: DARIAN FELICIANO, [Primary Care Provider] - Follow up as needed FEDERICO CRESPO DO [ACTIVE STAFF] - Follow up as needed
--- NOTE | 2020-02-08 10:11 | RADIOLOGY REPORT (SQ) ---
EXAM DESCRIPTION: WRIST LEFT 3 VIEWS IMAGES COMPLETED DATE/TIME: 02/08/2020 9:03 am REASON FOR STUDY: injury, pain, swelling COMPARISON: None. NUMBER OF VIEWS: Three views. TECHNIQUE: AP, lateral, and oblique radiographic images acquired of the left wrist. LIMITATIONS: None. FINDINGS: MINERALIZATION: Normal. BONES: No acute fracture or dislocation. No worrisome bone lesions. Normal alignment. SOFT TISSUES: No soft tissue swelling. No foreign body. OTHER: No other significant finding. IMPRESSION: NEGATIVE STUDY OF THE LEFT WRIST. NO RADIOGRAPHIC EVIDENCE OF ACUTE INJURY. TECHNICAL DOCUMENTATION: JOB ID: [id number] 2010 [employer]- All Rights Reserved Reading location - IP/workstation name: [email or web address]
[2020-02-08 11:33] VITALS: BP 127/79
== END 2020-02-08 11:35 | disposition home or self-care (01) ==
LOC: ER 08:31
DX: S63.502A Unspecified sprain of left wrist, initial encounter (principal); W01.0XXA Fall on same level from slipping, tripping and stumbling without subsequent striking against object, initial encounter; Y93.E5 Activity, floor mopping and cleaning; Y92.009 Unspecified place in unspecified non-institutional (private) residence as the place of occurrence of the external cause; I10 Essential (primary) hypertension; Z91.018 Allergy to other foods
CPT/HCPCS: 99283

== ENCOUNTER 2020-05-25 20:36 | Emergency (ER) | payer SELFPAY ==
[2020-05-25 20:43] VITALS: BP 124/89
--- NOTE | 2020-05-25 21:18 | ER Document Report ---
ED Medical Screen (RME) - General Chief Complaint: Bloody Stools Stated Complaint: BLOOD IN STOOL/CONSTIPATION/VAGINAL SWELLING Time Seen by Provider: 05/25/20 21:16 Primary Care Provider: DARIAN FELICIANO DO [Primary Care Provider] - Follow up as needed Notes: Patient is a 40-year-old female who presents emergency department with a chief complaint of rectal and vaginal pain. Patient reports 1 month ago she was diag nosed with colitis and finished her course of antibiotics. She states that she was much better until 3 days ago when she developed some rectal pressure. Patient reports she feels like there is a bulge in between the rectum and vaginal opening. Patient reports that the right side of her vagina is continuingly starting to swell. Patient denies vaginal bleeding or discharge. Patient did have a bowel movement this morning, loose in nature, no blood. TRAVEL OUTSIDE OF THE [place] IN LAST 30 DAYS: No - Related Data Allergies/Adverse Reactions: Pork/Porcine Containing Products [Pork/Porcine Product Derivatives] Allergy (Intermediate, Verified 02/08/20 08:34) Swelling of hands and/or feet No Known Drug Allergies Allergy (Verified 02/08/20 08:34) Past Medical History - Past Medical History Cardiac Medical History: Reports: Hx Heart Attack - x1, "mild", Hx Hypertension, Hx Pulmonary Embolism Renal/ Medical History: Denies: Hx Peritoneal Dialysis Past Surgical History: Reports: Hx Section - x1 - Immunizations Immunizations up to date: Yes Hx Diphtheria, Pertussis, Tetanus Vaccination: Yes Physical Exam - Vital signs Vitals: Temp Pulse Resp BP Pulse Ox 99.3 F 84 16 124/89 H 100 05/25/20 20:41 05/25/20 20:41 05/25/20 20:41 05/25/20 20:41 05/25/20 20:41 Course - Re-evaluation Re-evalutation: 05/25/20 21:18 Patient will need to be thoroughly assessed once placed in a gown and private room. Will obtain basic labs to start. I have greeted and performed a rapid initial assessment of this patient. A comprehensive ED assessment and evaluation of the patient, analysis of test results and completion of the medical decision making process will be conducted by additional ED providers. - Vital Signs Vital signs: Temp Pulse Resp BP Pulse Ox 99.3 F 84 16 124/89 H 100 05/25/20 20:41 05/25/20 20:41 05/25/20 20:41 05/25/20 20:41 05/25/20 20:41 Doctor's Discharge - Discharge Referrals: DARIAN FELICIANO DO [Primary Care Provider] - Follow up as needed
[2020-05-25] MEDS ORDERED: IBUPROFEN 800 MG TABLET PO ONE (21:28)
[2020-05-25 21:49] LABS: ABSOLUTE LYMPHOCYTES (AUTO) 1.3 10^3/uL (0.5-4.7); ABSOLUTE MONOCYTES (AUTO) 0.9 10^3/uL (0.1-1.4); ABSOLUTE NEUT (AUTO) 7.8 10^3/uL (1.7-8.2); BASOPHILS % (AUTO) 0.5 % (0-2); EOSINOPHILS % (AUTO) 0.5 % (0-6); HEMATOCRIT 31.1 % (36.0-47.0); HEMOGLOBIN 10.3 g/dL (12.0-15.5); LYMPHOCYTES % (AUTO) 13.1 % (13-45); MEAN CORPUSCULAR HEMOGLOBIN 32.2 pg (27.0-33.4); MEAN CORPUSCULAR HGB CONC 33.3 g/dL (32.0-36.0); MEAN CORPUSCULAR VOLUME 97 fl (80-97); MONOCYTES % (AUTO) 9.2 % (3-13); PLATELET COUNT 624 10^3/uL (150-450); RED CELL DISTRIBUTION WIDTH 21.4 % (11.5-14.0); SEGMENTED NEUTROPHILS % (AUTO) 76.7 % (42-78); TOTAL CELLS COUNTED % (AUTO) 100 %; WHITE BLOOD COUNT 10.2 10^3/uL (4.0-10.5)
[2020-05-25 21:58] LABS: APPEARANCE,URINE SLIGHTLY-CLOUDY; BILIRUBIN,URINE SMALL (NEGATIVE); COLOR,URINE AMBER; GLUCOSE, URINE NEGATIVE (NEGATIVE); KETONES,URINE NEGATIVE (NEGATIVE); LEUKOCYTE ESTERASE,URINE SMALL (NEGATIVE); NITRITE,URINE NEGATIVE (NEGATIVE); PROTEIN,URINE 100 mg/dL (NEGATIVE); URINE SPECIFIC GRAVITY 1.031
[2020-05-25 22:04] LABS: ALKALINE PHOSPHATASE 95 U/L (38-126); ANION GAP 6 (5-19); ASPARTATE AMINO TRANSFERASE 18 U/L (14-36); BILIRUBIN,DIRECT 0.3 mg/dL (0.0-0.4); BILIRUBIN,TOTAL 0.6 mg/dL (0.2-1.3); BLOOD UREA NITROGEN 9 mg/dL (7-20); CALCIUM 8.9 mg/dL (8.4-10.2); CARBON DIOXIDE 30 mmol/L (22-30); CHLORIDE 100 mmol/L (98-107); GLUCOSE 99 mg/dL (75-110); POTASSIUM 3.7 mmol/L (3.6-5.0)
== END 2020-05-26 01:15 | disposition left against medical advice (07) ==
LOC: ER 20:36
DX: K62.89 Other specified diseases of anus and rectum (principal); R10.2 Pelvic and perineal pain; R19.4 Change in bowel habit; I10 Essential (primary) hypertension; Z87.19 Personal history of other diseases of the digestive system; Z91.018 Allergy to other foods; Z53.20 Procedure and treatment not carried out because of patient's decision for unspecified reasons
CPT/HCPCS: 36415; 80053; 81001; 81025; 85025; 99281

== ENCOUNTER 2020-06-01 09:35 | Emergency (ER) | payer SELFPAY ==
--- NOTE | 2020-06-01 10:10 | ER Document Report ---
ED General - General Chief Complaint: Rectal Pain Stated Complaint: BODY SWELLING Primary Care Provider: DARIAN FELICIANO DO [NO LOCAL MD] - Follow up as needed Mode of Arrival: Ambulatory Information source: Patient Notes: Patient is a 40-year-old female presenting to the emergency department chief complaint of rectal pain and swelling. Patient states is been ongoing for approximately a week. Patient states she was here about 4 days ago but was never seen and because of extensive wait time opted to go home she states the pain and swelling is more extensive now and extends from the rectum towards the vagina region. She states she has decreased sensation as to when she has to have a bowel movement. Patient denies similar episodes in the past. Patient has had 1 and otherwise no prior medical history. Patient denies fevers chills nausea vomiting diarrhea cough or cold. TRAVEL OUTSIDE OF THE [place] IN LAST 30 DAYS: No - HPI Onset: Last week Onset/Duration: Persistent, Worse Quality of pain: Throbbing Severity: Moderate Pain Level: 3 Associated symptoms: None Exacerbated by: Sitting, Movement, Walking Relieved by: Denies Similar symptoms previously: Yes Recently seen / treated by doctor: No - Related Data Allergies/Adverse Reactions: Pork/Porcine Containing Products [Pork/Porcine Product Derivatives] Allergy (Intermediate, Verified 06/01/20 09:48) Swelling of hands and/or feet No Known Drug Allergies Allergy (Verified 06/01/20 09:48) Home Medications: ibuporfen as needeed Past Medical History - General Information source: Patient - Social History Smoking Status: Never Smoker Chew tobacco use (# tins/day): No Frequency of alcohol use: None Drug Abuse: None Family History: Reviewed & Not Pertinent Patient has suicidal ideation: No Patient has homicidal ideation: No - Past Medical History Cardiac Medical History: Reports: Hx Heart Attack - x1, "mild", Hx Hypertension, Hx Pulmonary Embolism Renal/ Medical History: Denies: Hx Peritoneal Dialysis Past Surgical History: Reports: Hx Section - x1 - Immunizations Immunizations up to date: Yes Hx Diphtheria, Pertussis, Tetanus Vaccination: Yes Review of Systems - Review of Systems Notes: REVIEW OF SYSTEMS: CONSTITUTIONAL : Denies fever, chills, or sweats. Denies recent illness. EENT: Denies eye, ear, throat, or mouth pain or symptoms. Denies nasal or sinus congestion. CARDIOVASCULAR: Denies chest pain. RESPIRATORY: Denies cough, cold, or chest congestion. Denies shortness of breath, difficulty breathing, or wheezing. GASTROINTESTINAL: Denies abdominal pain. Denies nausea, vomiting, or diarrhea. Denies constipation. GENITOURINARY: Denies difficulty urinating, painful urination, burning, frequency, or blood in urine. MUSCULOSKELETAL: Denies neck or back pain or joint pain or swelling. SKIN: Denies rash or skin lesions. HEMATOLOGIC : Denies easy bruising or bleeding. NEUROLOGICAL: Denies altered mental status or loss of consciousness. Denies headache. Denies weakness or paralysis or loss of use of either side. Denies problems with gait or speech. Denies sensory or motor loss. PSYCHIATRIC: Denies suicidal or homicidal ideations 10 Systems are negative unless otherwise specified above Physical Exam - Vital signs Vitals: Temp Pulse Resp BP Pulse Ox 98.1 F 103 H 18 136/92 H 99 06/01/20 09:44 06/01/20 09:44 06/01/20 09:44 06/01/20 09:44 06/01/20 09:44 - Notes Notes: PHYSICAL EXAMINATION: GENERAL: Well-appearing, well-nourished and in no acute distress. HEAD: Atraumatic, normocephalic. EYES: Pupils equal round and reactive to light, extraocular movements intact, sc marissa anicteric, conjunctiva are normal. ENT: nares patent, oropharynx clear without exudates. Moist mucous membranes. NECK: Normal range of motion, supple without lymphadenopathy, no appreciable JVD LUNGS: Lungs clear to auscultation bilaterally and equal. No wheezes rales or rhonchi. HEART: Regular rate and rhythm without murmurs ABDOMEN: Soft, nontender, normal bowel sounds. No guarding, no rebound. No masses appreciated. Genitourinary: There is a 4 x 2 centimeter abscess between the rectum and the vagina mainly on the right side patient is exquisitely tender to any palpation to the right buttocks and obviously to the area of abscess. EXTREMITIES: Active full range of motion, no pitting or edema. No cyanosis. 2+ pulses x4 NEUROLOGICAL: No focal neurological deficits. Moves all extremities spontaneously and on command. SKIN: Warm, Dry, and intact. Normal turgor, no rashes or lesions noted. Course - Re-evaluation Re-evalutation: 06/01/20 10:25 Consulted general surgery after examination. Surgeon is currently in a case in the OR will come and see the patient when he is complete. 06/01/20 11:46 Patient was seen and evaluated by general surgery his recommendation is that the patient be evaluated for abscess drainage by CUSTOMER SUPPLY CHAIN ANALYST because of the majority of the abscess is to the right side labia majora. 06/01/20 12:15 Patient was seen by Dr. Villagomez CUSTOMER SUPPLY CHAIN ANALYST on-call he recommends conservative management with antibiotics and pain medication he requested patient to be seen in his office sometime later on this week. I did discuss this with the patient she is agreeable with care plan. Patient will receive 1 g of Rocephin IM and once she is able to secure a ride she will receive pain medication at that time. - Vital Signs Vital signs: Temp Pulse Resp BP Pulse Ox 98.1 F 103 H 18 136/92 H 99 06/01/20 09:44 06/01/20 09:44 06/01/20 09:44 06/01/20 09:44 06/01/20 09:44 Discharge - Discharge Clinical Impression: Abscess of labia majora Condition: Stable Disposition: HOME, SELF-CARE Instructions: Abscess ([facility]), Cephalexin ([facility]), Oral Narcotic Medication ([facility]) Additional Instructions: Please call Dr. Villagomez's office tomorrow to schedule a follow-up appointment for later on this week. Please advise staff that this was per his request. Please take all antibiotics as prescribed. Prescriptions: Hydrocodone/Acetaminophen [[place] 10-325 Tablet] 1 each PO Q6HP PRN #14 tablet PRN Reason: Cephalexin Monohydrate [Keflex 500 mg Capsule] 500 mg PO Q6H 5 Days #40 capsule Forms: Return to Work Referrals: DARIAN FELICIANO DO [NO LOCAL MD] - Follow up as needed SANDY VILLAGOMEZ MD [ACTIVE STAFF] - Follow up as needed
--- NOTE | 2020-06-01 11:47 | PDOC CONSULTATION ---
Consultation Consult Date: 06/01/20 Attending physician:: BRIANDA ADORNO Provider Consulted: BOBO HERNÁNDEZ Consult reason:: Rule out perirectal abscess History of Present Illness History of Present Illness: TONIO VUONG is a 40 year old female Presents emergency department via ground rescue complaining of several week history of right-sided vaginal, and perineal pain. Patient seen in the emergency department week ago, felt to have vaginal infection was sent home on antibiotics. She did not improve clinically. She back to emergency department with swelling of the right labia majora and perianal tissue. Surgery was cons ulted. No imaging studies obtained. Past Medical History Past Medical History: History of myocardial infarction by her report, hypertension, pulmonary embolus secondary to miscarriage. Cardiac Medical History: Reports: Myocardial Infarction - x1, "mild", Hypertension, Pulmonary Embolism Past Surgical History Past Surgical History: section, and drainage of a Bartholin's gland infection Past Surgical History: Reports: Section - x1 Social History Information Source: Patient Smoking Status: Never Smoker Electronic Cigarette use?: No Hx Recreational Drug Use: No Family History Family History: None, Reviewed & Not Pertinent Parental Family History Reviewed: No Children Family History Reviewed: No Sibling(s) Family History Reviewed.: No Medication/Allergy Home Medications: No Home Medications 06/01/20 Allergies/Adverse Reactions: Pork/Porcine Containing Products [Pork/Porcine Product Derivatives] Allergy (Intermediate, Verified 06/01/20 09:48) Swelling of hands and/or feet No Known Drug Allergies Allergy (Verified 06/01/20 09:48) Review of Systems Constitutional: PRESENT: as per HPI Eyes: ABSENT: visual disturbances Ears: ABSENT: hearing changes Gastrointestinal: PRESENT: as per HPI Musculoskeletal: PRESENT: as per HPI Psychiatric: PRESENT: anxiety Physical Exam Vital Signs: Temp Pulse Resp BP Pulse Ox 98.1 F 103 H 18 136/92 H 99 06/01/20 09:44 06/01/20 09:44 06/01/20 09:44 06/01/20 09:44 06/01/20 09:44 Intake & Output 05/31/20 06/01/20 06/02/20 06:59 06:59 06:59 Weight 84.822 kg General appearance: PRESENT: mild distress Head exam: PRESENT: normocephalic Eye exam: PRESENT: EOMI Mouth exam: PRESENT: dry mucosa Respiratory exam: PRESENT: clear to auscultation iris Cardiovascular exam: PRESENT: RRR Pulses: PRESENT: normal carotid pulses, normal radial pulses Rectal exam: PRESENT: other - Patient rolled left lateral cubitus position. There is no visible or overtly palpable perianal pathology. Patient's right labia majora is markedly swollen, tender, erythematous. No active drainage. Extremities exam: PRESENT: full ROM Musculoskeletal exam: PRESENT: full ROM Neurological exam: PRESENT: oriented to time, oriented to situation Psychiatric exam: PRESENT: appropriate affect Assessment & Plan - Diagnosis (1) Abscess of labia majora Is this a current diagnosis for this admission?: Yes Plan: Impression: Patient clinical manifestation, physical examination, patient appears to have an acute right labia majora infection with abscess requiring drainage Recommendations: 1. Patient's principal problem appears to be gynecologic in origin; I spoke with Dr. Lars Villagomez, repairer veneer sheet on-call, who will see patient in consultation. 2. Keep patient n.p.o.; no rapid COVID test available 3. General surgery will sign off; re-consult if clinically indicated (2) History of hypertension Is this a current diagnosis for this admission?: Yes (3) History of pulmonary embolus (PE) Is this a current diagnosis for this admission?: Yes (4) History of myocardial infarction Is this a current diagnosis for this admission?: Yes - Time Time Spent: 30 to 50 Minutes Smoking Cessation Education: 3 to 10 minutes Medications reviewed and adjusted accordingly: Yes Anticipated discharge: Home
--- NOTE | 2020-06-01 12:10 | PDOC CONSULTATION ---
Consultation Consult Date: 06/01/20 Provider Consulted: SANDY WHITE History of Present Illness History of Present Illness: TONIO VUONG is a 40 year old female with a one history of vulvar swelling with pain. Past Medical History LMP: [id number] Cardiac Medical History: Reports: Myocardial Infarction - x1, "mild", Hypertension, Pulmonary Embolism Social History Smoking Status: Never Smoker Electronic Cigarette use?: No Hx Recreational Drug Use: No Family History Family History: None, Reviewed & Not Pertinent Parental Family History Reviewed: No Children Family History Reviewed: No Sibling(s) Family History Reviewed.: No Medication/Allergy Home Medications: No Home Medications 06/01/20 Allergies/Adverse Reactions: Pork/Porcine Containing Products [Pork/Porcine Product Derivatives] Allergy (Intermediate, Verified 06/01/20 09:48) Swelling of hands and/or feet No Known Drug Allergies Allergy (Verified 06/01/20 09:48) Physical Exam - Physical Exam Vital Signs: Temp Pulse Resp BP Pulse Ox 98.1 F 103 H 18 136/92 H 99 06/01/20 09:44 06/01/20 09:44 06/01/20 09:44 06/01/20 09:44 06/01/20 09:44 Intake & Output 05/31/20 06/01/20 06/02/20 06:59 06:59 06:59 Weight 84.822 kg - Gynecological Exam Labia: other - edematous painful right labia majora, apparent vulvar abcess. Assessment & Plan - Time Time Spent: 30 to 50 Minutes Medications reviewed and adjusted accordingly: Yes Anticipated Discharge Disposition: Home, Self Care Anticipated Discharge Timeframe: within 24 hours - recomend 1 gram rocephin IM, followed by keflex 500mg qid for 10 days oral - Plan Summary Plan Summary: antibiotics as discussed and follow up in our office this week
[2020-06-01] MEDS ORDERED: CEFTRIAXONE INJ 1000 MG VIAL IM ONE (12:15)
[2020-06-01] MEDS ORDERED: OXYCODONE-ACETAMINOPHEN 5-325 MG TABLET PO ONE (12:34)
[2020-06-01 12:45] VITALS: BP 108/66
== END 2020-06-01 13:11 | disposition home or self-care (01) ==
LOC: ER 09:35
DX: N76.4 Abscess of vulva (principal); R20.8 Other disturbances of skin sensation; I10 Essential (primary) hypertension; Z91.018 Allergy to other foods
CPT/HCPCS: 99284; 96372; J0696

== ENCOUNTER 2020-08-09 14:02 | Emergency (ER) | payer SELFPAY ==
--- NOTE | 2020-08-09 14:26 | ER Document Report ---
ED Medical Screen (RME) - General Chief Complaint: Diarrhea Stated Complaint: LEG/CALF PAIN,DIARRHEA Time Seen by Provider: 08/09/20 14:20 Mode of Arrival: Wheelchair Information source: Patient Notes: 40-year-old female presents to ED for complaint of numbness and sharp pains to her feet all the way up to her knees for the last 2 weeks. She states it feels like her normal sleeping but they still have sharp pains controlled. She also has continued problems with her diarrhea that she has had for 5 months. She states she is going so frequently she sees blood in the stool she states she was told couple weeks ago that she had a split in the rectum and that is what was causing the bleeding but now her rectum is so swollen from some any diarrhea stools. She states she can drink water or supplements and it comes right back out. She states she needs to find out what is going on somebody to help with these problems. I have greeted and performed a rapid initial assessment of this patient. A comprehensive ED assessment and evaluation of the patient, analysis of test results and completion of medical decision making process will be conducted by an additional ED providers. TRAVEL OUTSIDE OF THE [place] IN LAST 30 DAYS: No - Related Data Allergies/Adverse Reactions: Pork/Porcine Containing Products [Pork/Porcine Product Derivatives] Allergy (Intermediate, Verified 06/01/20 09:48) Swelling of hands and/or feet No Known Drug Allergies Allergy (Verified 06/01/20 09:48) Past Medical History - General Information source: Patient - Social History Cigarette use (# per day): No Frequency of alcohol use: None Drug Abuse: None Lives with: Family Family history: Reviewed & Not Pertinent - Past Medical History Cardiac Medical History: Reports: Hx Heart Attack - x1, "mild", Hx Hypertension, Hx Pulmonary Embolism Pulmonary Medical History: Reports: None EENT Medical History: Reports: None Neurological Medical History: Reports: None Endocrine Medical History: Reports: None Renal/ Medical History: Reports: None Malignancy Medical History: Reports: None GI Medical History: Reports: Hx Gastritis, Other - Colitis Musculoskeltal Medical History: Reports Hx Musculoskeletal Trauma Skin Medical History: Reports None Psychiatric Medical History: Reports: None Traumatic Medical History: Reports: None Infectious Medical History: Reports: None Past Surgical History: Reports: Hx Section - x1 - Immunizations Immunizations up to date: Yes Hx Diphtheria, Pertussis, Tetanus Vaccination: Yes - 2018 Physical Exam - Vital signs Vitals: Temp Pulse Resp BP Pulse Ox 99.0 F 98 16 118/80 98 08/09/20 14:16 08/09/20 14:16 08/09/20 14:16 08/09/20 14:16 08/09/20 14:16 Course - Vital Signs Vital signs: Temp Pulse Resp BP Pulse Ox 99.0 F 98 16 118/80 98 08/09/20 14:16 08/09/20 14:16 08/09/20 14:16 08/09/20 14:16 08/09/20 14:16
[2020-08-09] MEDS ORDERED: NORMAL SALINE 1000 ML 1,000 ML IV ONE (14:27)
[2020-08-09 15:09] LABS: ABSOLUTE LYMPHOCYTES (AUTO) 0.9 10^3/uL (0.5-4.7); ABSOLUTE MONOCYTES (AUTO) 1.2 10^3/uL (0.1-1.4); ABSOLUTE NEUT (AUTO) 9.8 10^3/uL (1.7-8.2); BASOPHILS % (AUTO) 0.2 % (0-2); EOSINOPHILS % (AUTO) 0.1 % (0-6); HEMATOCRIT 32.3 % (36.0-47.0); HEMOGLOBIN 10.7 g/dL (12.0-15.5); LYMPHOCYTES % (AUTO) 7.8 % (13-45); MEAN CORPUSCULAR HEMOGLOBIN 32.8 pg (27.0-33.4); MEAN CORPUSCULAR VOLUME 99 fl (80-97); MONOCYTES % (AUTO) 10.1 % (3-13); PLATELET COUNT 734 10^3/uL (150-450); RED BLOOD COUNT 3.25 10^6/uL (3.72-5.28); RED CELL DISTRIBUTION WIDTH 21.6 % (11.5-14.0); SEGMENTED NEUTROPHILS % (AUTO) 81.8 % (42-78); TOTAL CELLS COUNTED % (AUTO) 100 %
[2020-08-09 15:25] LABS: ALBUMIN 3.1 g/dL (3.5-5.0); ALKALINE PHOSPHATASE 91 U/L (38-126); ANION GAP 5 (5-19); ASPARTATE AMINO TRANSFERASE 19 U/L (14-36); BILIRUBIN,DIRECT 0.1 mg/dL (0.0-0.4); BILIRUBIN,TOTAL 0.7 mg/dL (0.2-1.3); BLOOD UREA NITROGEN 8 mg/dL (7-20); CALCIUM 8.8 mg/dL (8.4-10.2); CARBON DIOXIDE 31 mmol/L (22-30); CHLORIDE 97 mmol/L (98-107); GLUCOSE 87 mg/dL (75-110); POTASSIUM 3.8 mmol/L (3.6-5.0); TOTAL PROTEIN 6.3 g/dL (6.3-8.2)
[2020-08-09 16:07] LABS: APPEARANCE,URINE CLOUDY; BILIRUBIN,URINE NEGATIVE (NEGATIVE); COLOR,URINE AMBER; GLUCOSE, URINE NEGATIVE (NEGATIVE); KETONES,URINE TRACE mg/dL (NEGATIVE); LEUKOCYTE ESTERASE,URINE LARGE (NEGATIVE); NITRITE,URINE NEGATIVE (NEGATIVE); PROTEIN,URINE 100 mg/dL (NEGATIVE); URINE SPECIFIC GRAVITY 1.031
--- NOTE | 2020-08-09 16:39 | ER Document Report ---
ED General - General Chief Complaint: Diarrhea Stated Complaint: LEG/CALF PAIN,DIARRHEA Time Seen by Provider: 08/09/20 14:20 Mode of Arrival: Wheelchair Information source: Patient Notes: Patient presents to the ER for evaluation of diarrhea with left-sided abdominal pain times approximately 5 months. The patient states has been seen at this facility with diarrhea recently multiple times. She denies fever. She denies nausea or vomiting. The patient states anything she eats or drinks goes straight out. She states she has now developed bilateral leg cramping and tightness in the lower extremities and feet times approximately 2 weeks. The patient states the symptoms are bad at nighttime and seem to be improved during the day. She denies chest pain or shortness of breath. She denies cough or congestion. Nursing notes reviewed and past medical, social, and family histories reviewed and validated. TRAVEL OUTSIDE OF THE [place] IN LAST 30 DAYS: No - Related Data Allergies/Adverse Reactions: Pork/Porcine Containing Products [Pork/Porcine Product Derivatives] Allergy (Intermediate, Verified 08/09/20 14:57) Swelling of hands and/or feet No Known Drug Allergies Allergy (Verified 08/09/20 14:57) Past Medical History - General Information source: Patient - Social History Smoking Status: Former Smoker Cigarette use (# per day): No Chew tobacco use (# tins/day): No Frequency of alcohol use: None Drug Abuse: None Lives with: Family Family History: Reviewed & Not Pertinent Patient has suicidal ideation: No Patient has homicidal ideation: No - Past Medical History Cardiac Medical History: Reports: Hx Heart Attack - x1, "mild", Hx Hypertension, Hx Pulmonary Embolism Pulmonary Medical History: Reports: None EENT Medical History: Reports: None Neurological Medical History: Reports: None Endocrine Medical History: Reports: None Renal/ Medical History: Reports: None Malignancy Medical History: Reports: None GI Medical History: Reports: Hx Gastritis, Other - Colitis Musculoskeletal Medical History: Reports Hx Musculoskeletal Trauma Skin Medical History: Reports None Psychiatric Medical History: Reports: None Traumatic Medical History: Reports: None Infectious Medical History: Reports: None Past Surgical History: Reports: Hx Section - x1 - Immunizations Immunizations up to date: Yes Hx Diphtheria, Pertussis, Tetanus Vaccination: Yes - 2018 Review of Systems - Review of Systems Notes: Constitutional: Negative for fever. HENT: Negative for sore throat. Eyes: Negative for visual changes. Cardiovascular: Negative for chest pain. Respiratory: Negative for shortness of breath. Gastrointestinal: Positive for abdominal pain. Positive for diarrhea. Negative for nausea and vomiting. Genitourinary: Negative for dysuria. Musculoskeletal: Positive for lower extremity cramping and tightness. Negative for back pain. Skin: Negative for rash. Neurological: Negative for headaches, weakness or numbness. 10 point ROS negative except as marked above and in HPI. Physical Exam - Vital signs Vitals: Temp Pulse Resp BP Pulse Ox 99.0 F 98 16 118/80 98 08/09/20 14:16 08/09/20 14:16 08/09/20 14:16 08/09/20 14:16 08/09/20 14:16 - Notes Notes: CONSTITUTIONAL: Well appearing. No acute distress. SKIN: Warm, dry, and intact without rash EYES: Extraocular movements are grossly intact, clear conjunctiva HENT: Normocephalic, atraumatic, dry mucus membranes NECK: No obvious swelling, normal range of motion PULMONARY: Normal chest rise and fall. Breath sounds clear and equal bilaterally. No respiratory distress or stridor CARDIOVASCULAR: Regular rate. No murmurs, rubs, gallops. Distal extremities are warm and well perfused. ABDOMINAL: The abdomen is soft. There is tenderness palpation in the left upper and lower quadrants of the abdomen. NEUROLOGIC: Normal speech, moves all extremities. MUSCULOSKELETAL: No gross deformities, atraumatic. There is no tenderness to palpation in the posterior calf, knee, thigh area. There are good distal pedal pulses noted bilaterally. PSYCHIATRIC: Normal mood and affect Course - Re-evaluation Re-evalutation: 08/09/20 17:47 Rechecked patient who has responded well to treatment in the ER. The patient was offered admission but has opted for initial outpatient attempt. She will return to the emergency room for admission if she fails outpatient treatment. Discussed with patient: results, diagnosis, treatment plan, and need for follow-up. Return to the emergency department warnings were given. All questions and concerns were addressed. The plan is agreed with and understood. Patient is stable and ready for discharge. - Vital Signs Vital signs: Temp Pulse Resp BP Pulse Ox 99.0 F 98 16 118/80 98 08/09/20 14:16 08/09/20 14:16 08/09/20 14:16 08/09/20 14:16 08/09/20 14:16 - Laboratory Result Diagrams: 08/09/20 14:40 08/09/20 14:40 Laboratory results interpreted by me: 08/09/20 08/09/20 08/09/20 14:40 14:40 15:15 WBC 12.0 H RBC 3.25 L Hgb 10.7 L Hct 32.3 L MCV 99 H RDW 21.6 H Plt Count 734 H Lymph % (Auto) 7.8 L Absolute Neuts (auto) 9.8 H Seg Neutrophils % 81.8 H Sodium 132.6 L Chloride 97 L Carbon Dioxide 31 H Albumin 3.1 L Urine Protein Urine Ketones Urine Blood Urine Urobilinogen Ur Leukocyte Esterase Stool for White Cells MANY H 08/09/20 15:15 WBC RBC Hgb Hct MCV RDW Plt Count Lymph % (Auto) Absolute Neuts (auto) Seg Neutrophils % Sodium Chloride Carbon Dioxide Albumin Urine Protein 100 H Urine Ketones TRACE H Urine Blood MODERATE H Urine Urobilinogen 2.0 H Ur Leukocyte Esterase LARGE H Stool for White Cells Discharge - Discharge Clinical Impression: Acute colitis Condition: Stable Disposition: HOME, SELF-CARE Instructions: Colitis, Nonspecific ([facility]) Additional Instructions: Follow-up with a GI doctor as discussed. Make sure to see your primary care doctor in the next 72 hours for a recheck. Remember, come to the emergency room if you have the inability to follow-up or if you get worse. Prescriptions: Ciprofloxacin HCl [Cipro 500 mg Tablet] 500 mg PO BID #20 tablet Metronidazole [Flagyl] 500 mg PO TID #30 tablet
--- NOTE | 2020-08-09 17:38 | RADIOLOGY REPORT (SQ) ---
EXAM DESCRIPTION: CT ABD/PELVIS WITH IV ONLY IMAGES COMPLETED DATE/TIME: 08/09/2020 4:08 pm REASON FOR STUDY: diarrhea, left sided abd pain. Right lower quadrant pain. Rectal pain. COMPARISON: 01/14/2020 TECHNIQUE: CT scan of the abdomen and pelvis performed using helical scanning technique with dynamic intravenous contrast injection. No oral contrast. Images reviewed with lung, soft tissue, and bone windows. Reconstructed coronal and sagittal MPR images reviewed. Delayed images for evaluation of the urinary system also acquired. All images stored on PACS. All CT scanners at this facility use dose modulation, iterative reconstruction, and/or weight based d osing when appropriate to reduce radiation dose to as low as reasonably achievable (ALARA). [facility]: Dose Right [facility]: CareDose [facility]: Dose Right [facility]: Teradose 4D [facility]: Propertybase CONTRAST TYPE AND DOSE: contrast/concentration: Isovue mmol/ml; Total Contrast Delivered: 90.0 ml; Total Saline Delivered: 56.1 ml RENAL FUNCTION: GFR > 60. RADIATION DOSE: CT Rad equipment meets quality standard of care and radiation dose reduction techniq ues were employed. CTDIvol: 6.6 - 9.3 mGy. DLP: 898 mGy-cm.. LIMITATIONS: None. FINDINGS: LOWER CHEST: No significant findings. No nodules or infiltrates. LIVER: The liver is enlarged with moderate diffuse hepatic steatosis, the liver has normal size. Mod erate diffuse hepatic steatosis. No focal hepatic mass. Hepatic and portal veins are patent. SPLEEN: Normal size. No focal lesions. PANCREAS: No masses. No significant calcifications. No adjacent inflammation or peripancreatic fluid collections. Pancreatic duct not dilated. GALLBLADDER: No identified stones by CT criteria. No inflammatory changes to suggest cholecystitis. ADRENAL GLANDS: No significant masses or asymmetry. RIGHT KIDNEY AND URETER: No solid masses. No significant calcifications. No hydronephrosis or hyd roureter. LEFT KIDNEY AND URETER: No solid masses. No significant calcifications. No hydronephrosis or hydr oureter. AORTA AND VESSELS: No aneurysm. No dissection. Renal arteries, SMA, celiac without stenosis. RETROPERITONEUM: No retroperitoneal adenopathy, hemorrhage or masses. BOWEL AND PERITONEAL CAVITY: There is diffuse colon wall thickening and surrounding inflammatory juan ge involving the entire colon and rectum. No bowel obstruction. Trace ascites in the pelvis. No pn eumoperitoneum. APPENDIX: Normal. PELVIS: Uterus and ovaries have normal size. No adnexal mass. Urinary bladder is relatively decompr essed. Multiple calcified pelvic phleboliths. ABDOMINAL WALL: Small fat containing umbilical hernia. Small fat containing ventral hernia. Finding s are unchanged. No subcutaneous mass or fluid. BONES: No significant or acute findings. OTHER: No other significant finding. IMPRESSION: 1. Diffuse inflammatory change involving the entire colon consistent with infectious or inflammatory colitis. No evidence of bowel ischemia. 2. Moderate hepatic steatosis. TECHNICAL DOCUMENTATION: JOB ID: [id number] Quality ID # [id number]: Final reports with documentation of one or more dose reduction techniques (e.g., Au tomated exposure control, adjustment of the mA and/or kV according to patient size, use of iterative reconstruction technique) 2010 [employer] All Rights Reserved Reading location - IP/workstation name: [email or web address]
[2020-08-09 18:01] VITALS: BP 113/66
[2020-08-09 19:18] LABS: C DIFFICILE GDH NEGATIVE (NEGATIVE)
== END 2020-08-09 18:01 | disposition home or self-care (01) ==
LOC: ER 14:02
DX: K52.9 Noninfective gastroenteritis and colitis, unspecified (principal); R10.9 Unspecified abdominal pain; R10.812 Left upper quadrant abdominal tenderness; R10.814 Left lower quadrant abdominal tenderness; K76.0 Fatty (change of) liver, not elsewhere classified; R25.2 Cramp and spasm; Z91.018 Allergy to other foods; I10 Essential (primary) hypertension; I25.2 Old myocardial infarction; Z87.891 Personal history of nicotine dependence
CPT/HCPCS: 99285; 96360; 36415; 87086; 89055; 83690; 85025; 81025; 80053; 81001; 87324; 87449; 74177; J7030

== ENCOUNTER 2020-08-15 12:22 | Emergency (ER) | payer SELFPAY ==
--- NOTE | 2020-08-15 13:15 | ER Document Report ---
ED Medical Screen (RME) - General Stated Complaint: FOOT PAIN Time Seen by Provider: 08/15/20 12:57 Mode of Arrival: Wheelchair Information source: Patient Notes: HPI; 40-year-old female presents to the emergency room complaining of worsening bilateral feet burning and pain for the past 3 weeks. Denies any trauma or injury. States that she has a history of sciatica initially thought the pain was coming from the sciatica but has been getting progressively worse. Has been seen in the ER previously without any diagnosis or answers. States her feet are now discolored and painful. She does have a history of PE no history of DVTs. No recent travel. No oral contraceptives. Not currently taking any medications for her symptoms. PE: Alert and oriented x3. Lungs: Clear to auscultation without rales, rhonchi, wheezes. Heart: Regular rate rhythm without murmurs, rubs, gallops. Without murmurs, rubs, gallops. Unable to do full assessment in triage. I have greeted and performed a rapid initial assessment of this patient. A comprehensive ED assessment and evaluation of the patient, analysis of test results and completion of the medical decision making process will be conducted by additional ED providers. I have specifically instructed the patient or family members with the patient to immediately return to any nursing staff should anything change in the patient's condition or with their chief complaint. TRAVEL OUTSIDE OF THE [place] IN LAST 30 DAYS: No - Related Data Allergies/Adverse Reactions: Pork/Porcine Containing Products [Pork/Porcine Product Derivatives] Allergy (Intermediate, Verified 08/15/20 13:10) Swelling of hands and/or feet No Known Drug Allergies Allergy (Verified 08/15/20 13:10) Past Medical History - Social History Family history: Reviewed & Not Pertinent - Past Medical History Cardiac Medical History: Reports: Hx Heart Attack - x1, "mild", Hx Hypertension, Hx Pulmonary Embolism GI Medical History: Reports: Hx Gastritis Musculoskeltal Medical History: Reports Hx Musculoskeletal Trauma Past Surgical History: Reports: Hx Section - x1 - Immunizations Immunizations up to date: Yes Hx Diphtheria, Pertussis, Tetanus Vaccination: Yes - 2018 Physical Exam - Vital signs Vitals: Temp Pulse Resp BP Pulse Ox 98.1 F 79 20 120/79 100 08/15/20 12:25 08/15/20 12:25 08/15/20 12:25 08/15/20 12:25 08/15/20 12:25 Course - Vital Signs Vital signs: Temp Pulse Resp BP Pulse Ox 98.1 F 79 20 120/79 100 08/15/20 12:25 08/15/20 12:25 08/15/20 12:25 08/15/20 12:25 08/15/20 12:25
[2020-08-15 13:58] LABS: ABSOLUTE LYMPHOCYTES (AUTO) 1.1 10^3/uL (0.5-4.7); ABSOLUTE MONOCYTES (AUTO) 1.5 10^3/uL (0.1-1.4); ABSOLUTE NEUT (AUTO) 9.4 10^3/uL (1.7-8.2); BASOPHILS % (AUTO) 0.4 % (0-2); EOSINOPHILS % (AUTO) 0.2 % (0-6); HEMATOCRIT 31.1 % (36.0-47.0); HEMOGLOBIN 10.3 g/dL (12.0-15.5); MEAN CORPUSCULAR HEMOGLOBIN 32.5 pg (27.0-33.4); MEAN CORPUSCULAR VOLUME 98 fl (80-97); MONOCYTES % (AUTO) 12.1 % (3-13); PLATELET COUNT 801 10^3/uL (150-450); RED BLOOD COUNT 3.17 10^6/uL (3.72-5.28); RED CELL DISTRIBUTION WIDTH 20.7 % (11.5-14.0); SEGMENTED NEUTROPHILS % (AUTO) 78.3 % (42-78); TOTAL CELLS COUNTED % (AUTO) 100 %
[2020-08-15 14:16] LABS: ALKALINE PHOSPHATASE 75 U/L (38-126); ANION GAP 6 (5-19); ASPARTATE AMINO TRANSFERASE 17 U/L (14-36); BILIRUBIN,DIRECT 0.2 mg/dL (0.0-0.4); BILIRUBIN,TOTAL 0.5 mg/dL (0.2-1.3); BLOOD UREA NITROGEN 6 mg/dL (7-20); CALCIUM 8.6 mg/dL (8.4-10.2); CARBON DIOXIDE 29 mmol/L (22-30); CHLORIDE 100 mmol/L (98-107); GLUCOSE 98 mg/dL (75-110); POTASSIUM 3.4 mmol/L (3.6-5.0); TOTAL PROTEIN 6.2 g/dL (6.3-8.2)
--- NOTE | 2020-08-15 15:32 | RADIOLOGY REPORT (SQ) ---
EXAM DESCRIPTION: VENOUS BILATERAL LOWER IMAGES COMPLETED DATE/TIME: 08/15/2020 2:38 pm REASON FOR STUDY: Bilateral leg swelling and pain hx PE COMPARISON: None. TECHNIQUE: Dynamic and static perez scale and color images acquired of both lower extremity venous sy stems. Selected spectral images acquired with additional compression and augmentation maneuvers. Imag es stored on PACS. LIMITATIONS: None. FINDINGS: RIGHT LEG COMMON FEMORAL AND FEMORAL: Normal phasicity, compression and augmentation. No visualized echogenic m aterial on perez scale. No defects on color images. POPLITEAL: Normal compression and augmentation. No visualized echogenic material on perez scale. No de fects on color images. CALF VESSELS: Normal compression and augmentation. No visualized echogenic material on perez scale. No defects on color image. GSV AND SSV: Normal compression. No visualized echogenic material on perez scale. No defects on color images. ANY DEEP VENOUS INSUFFICIENCY: Not evaluated. ANY EVIDENCE OF POPLITEAL CYST: No. OTHER: No other significant finding. LEFT LEG COMMON FEMORAL AND FEMORAL: Normal phasicity, compression and augmentation. No visualized echogenic m aterial on perez scale. No defects on color images. POPLITEAL: Normal compression and augmentation. No visualized echogenic material on perez scale. No de fects on color images. CALF VESSELS: Normal compression and augmentation. No visualized echogenic material on perez scale. No defects on color images. GSV AND SSV: Normal compression. No visualized echogenic material on perez scale. No defects on color images. ANY DEEP VENOUS INSUFFICIENCY: Not evaluated. ANY EVIDENCE POPLITEAL CYST: No. OTHER: No other significant finding. IMPRESSION: NO EVIDENCE DVT OR SVT IN EITHER LEG. TECHNICAL DOCUMENTATION: JOB ID: [id number] 2010 [employer]- All Rights Reserved Reading location - IP/workstation name: [email or web address]
[2020-08-15] MEDS ORDERED: NORMAL SALINE 1000 ML 1,000 ML IV ONE (16:01)
[2020-08-15] MEDS ORDERED: KETOROLAC TROMETHAMINE INJ/PF 30 MG/1 ML SDV IV ONE (16:02)
--- NOTE | 2020-08-15 18:11 | RADIOLOGY REPORT (SQ) ---
EXAM DESCRIPTION: CTA LEFT LOWER EXTREMITY; CTA RIGHT LOWER EXTREMITY IMAGES COMPLETED DATE/TIME: 08/15/2020 6:00 pm; 08/15/2020 5:57 pm REASON FOR STUDY: pain and difficulty walking 10 days COMPARISON: None. TECHNIQUE: Postcontrast images tibiofibula bilaterally. Sagittal and coronal reconstructions. CONTRAST TYPE AND DOSE: Not recorded by technologist. RENAL FUNCTION: GFR > 60. LIMITATIONS: None. FINDINGS: Patent tibioperoneal trunks. There is 3 vessel runoff bilaterally. Attenuated vessels di stally. IMPRESSION: No significant stenosis. TECHNICAL DOCUMENTATION: JOB ID: [id number] 2010 [employer]- All Rights Reserved Reading location - IP/workstation name: [email or web address]
--- NOTE | 2020-08-15 18:11 | RADIOLOGY REPORT (SQ) ---
EXAM DESCRIPTION: CTA LEFT LOWER EXTREMITY; CTA RIGHT LOWER EXTREMITY IMAGES COMPLETED DATE/TIME: 08/15/2020 6:00 pm; 08/15/2020 5:57 pm REASON FOR STUDY: pain and difficulty walking 10 days COMPARISON: None. TECHNIQUE: Postcontrast images tibiofibula bilaterally. Sagittal and coronal reconstructions. CONTRAST TYPE AND DOSE: Not recorded by technologist. RENAL FUNCTION: GFR > 60. LIMITATIONS: None. FINDINGS: Patent tibioperoneal trunks. There is 3 vessel runoff bilaterally. Attenuated vessels di stally. IMPRESSION: No significant stenosis. TECHNICAL DOCUMENTATION: JOB ID: [id number] 2010 [employer]- All Rights Reserved Reading location - IP/workstation name: [email or web address]
[2020-08-15] MEDS ORDERED: DEXAMETHASONE SOD PHOS INJ 10 MG/1 ML VIAL IV ONE (18:19)
[2020-08-15] MEDS ORDERED: HYDROMORPHONE HCL INJ/PF 2 MG/ML AMPULE IV ONE (18:19)
--- NOTE | 2020-08-15 19:05 | ER Document Report ---
ED General - General Chief Complaint: Leg Pain Stated Complaint: FOOT PAIN Time Seen by Provider: 08/15/20 12:57 Mode of Arrival: Wheelchair Information source: Patient Notes: This 40-year-old woman presents to the emergency department with a complaint of bilateral lower extremity foot burning and tingling with pain for the past 3 weeks. She denies diabetes mellitus or is not. She states that she did have a fracture to her tailbone approximately 1 year ago. She had no occasions from that injury. She states that the pain is severe and the numbness and tingling burning sensation will keep her awake at night. He has taken Tylenol without improvement. She states she is not taking any other medications. Son notes that the color of her toes turn blue at times and her entire feet become numb. TRAVEL OUTSIDE OF THE [place] IN LAST 30 DAYS: No - Related Data Allergies/Adverse Reactions: Pork/Porcine Containing Products [Pork/Porcine Product Derivatives] Allergy (Intermediate, Verified 08/15/20 13:10) Swelling of hands and/or feet No Known Drug Allergies Allergy (Verified 08/15/20 16:38) Past Medical History - General Information source: Patient - Social History Smoking Status: Former Smoker Family History: Reviewed & Not Pertinent - Past Medical History Cardiac Medical History: Reports: Hx Heart Attack - x1, "mild", Hx Hypertension, Hx Pulmonary Embolism GI Medical History: Reports: Hx Gastritis Musculoskeletal Medical History: Reports Hx Musculoskeletal Trauma Past Surgical History: Reports: Hx Section - x1 - Immunizations Immunizations up to date: Yes Hx Diphtheria, Pertussis, Tetanus Vaccination: Yes - 2017 Review of Systems - Review of Systems Notes: Constitutional: Negative for fever. HENT: Negative for sore throat. Eyes: Negative for visual changes. Cardiovascular: Negative for chest pain. Respiratory: Negative for shortness of breath. Gastrointestinal: Negative for abdominal pain, vomiting or diarrhea. Genitourinary: Negative for dysuria. Musculoskeletal: See HPI Skin: Negative for rash. Neurological: Negative for headaches, weakness or numbness. 10 point ROS negative except as marked above and in HPI. Physical Exam - Vital signs Vitals: Temp Pulse Resp BP Pulse Ox 98.1 F 79 20 120/79 100 08/15/20 12:25 08/15/20 12:25 08/15/20 12:25 08/15/20 12:25 08/15/20 12:25 - Notes Notes: PHYSICAL EXAMINATION: Physical Exam: General: Healthy-appearing 40-year-old female in mild distress secondary to bilateral lower extremity/foot pain HEENT: NC/AT, pupils equal round and reactive to light, MM moist,nares clear, oropharynx clear, airway patent Neck: supple, no adenopathy, no masses. Good range of motion Lungs: clear, no wheezing, no rales no rhonchi CVS: Regular rate and rhythm no murmur gallop or rub Abdomen: Soft, active, nontender, no masses, no hepatosplenomegaly Ext: Good dorsalis pedis pulses bilaterally and good posterior tibialis pulses bilaterally, + sensation bilaterally with good movement. Neuro: Alert and responsive, moving all 4 extremities on command, cranial nerves intact, no focal findings Skin: Intact no open lesions, no rash PSYCH: Normal mood, normal affect. Course - Re-evaluation Re-evalutation: 08/15/20 19:04 A Doppler ultrasound was performed and no DVT no SVT were noted. A CTA of bilateral lower extremity reveals bilateral equal and nonobstructive blood flow throughout. I have discussed the findings with the patient anterior does not appear that she has arterial or venous insufficiency contributing to the pain and discomfort that she is describing. While the symptoms may be neurologic and neuropathy is a possibility. I am asking her to follow-up with her primary care doctor as needed. She has been given a steroid Dosepak and started on a low- dose of gabapentin. Explained that she will need to follow-up with her physician for further adjustments of the medications and further testing as might be deemed necessary. - Vital Signs Vital signs: Temp Pulse Resp BP Pulse Ox 98.1 F 79 20 120/79 100 08/15/20 12:25 08/15/20 12:25 08/15/20 12:25 08/15/20 12:25 08/15/20 12:25 - Laboratory Result Diagrams: 08/15/20 13:35 08/15/20 13:35 Laboratory results interpreted by me: 08/15/20 08/15/20 13:35 13:35 WBC 12.0 H RBC 3.17 L Hgb 10.3 L Hct 31.1 L MCV 98 H RDW 20.7 H Plt Count 801 H Lymph % (Auto) 9.0 L Absolute Neuts (auto) 9.4 H Absolute Monos (auto) 1.5 H Seg Neutrophils % 78.3 H Sodium 134.9 L Potassium 3.4 L BUN 6 L Est GFR (MDRD) Non-Af 58 L Total Protein 6.2 L Albumin 3.0 L 08/15/20 19:05 I have reviewed laboratory data and used this information for the treatment decisions regarding the patient. - Diagnostic Test Radiology reviewed: Image reviewed, Reports reviewed Radiology results interpreted by me: 08/15/20 19:07 Venous Doppler Study 08/15/20 13:11 IMPRESSION: NO EVIDENCE DVT OR SVT IN EITHER LEG. Lower Extremity CTA 08/15/20 15:58 IMPRESSION: No significant stenosis. Lower Extremity CTA 08/15/20 15:58 IMPRESSION: No significant stenosis. Discharge - Discharge Clinical Impression: Bilateral leg paresthesia Condition: Good Disposition: HOME, SELF-CARE Instructions: Numbness or Paresthesia ([facility]), Neuropathy ([facility]) Additional Instructions: You are seen in the emergency department today with a 3-week history of bilateral lower extremity pain and numbness with tingling. The evaluation in the emergency department today is negative for venous or arterial disease that might be contributing to your symptoms. It is possible that your symptoms are due to the nerves that supply the sensation to your lower extremities. Neuropathy will require further evaluation by your physician with number of other tests which can be done including nerve conduction test. You have been given a prescription today for a steroid and gabapentin which is commonly used to treat your optic symptoms. If your symptoms are improving please your doctor know and he can continue and adjust the medications as needed. If your symptoms are not improving then further testing will be needed and as deemed appropriate by your physician. HOME CARE INSTRUCTIONS & INFORMATION: Thank you for choosing us for your medical needs. We hope you're satisfied with the care you received. After you leave, you must properly care for your problem and, at the same time, observe its progress. Any condition can change. Some illnesses can change rapidly over hours or days. If your condition worsens, return to the Emergency Department or see your physician promptly. ABOUT YOUR X-RAYS AND EKG'S: If you had an EKG or X-rays taken, they have been read by the Emergency Physician. The X-rays and EKG's will also be read by a Radiologist or Cake Cutter Machine within 24 hours. If discrepancies are noted, you will be notified by telephone. Please be certain the ED has a correct telephone number & address where you can be reached. Also, realize that some fractures or abnormalities do not show up on initial X-rays. If your symptoms continue, see your physician. ABOUT YOUR LABORATORY TEST: If you had laboratory tests, the results have been reviewed by the Emergency Physician. Some test results (for example cultures) may not be available for several days. You will be contacted if any test result shows you need additional treatment. Please be certain the ED has a correct telephone number and address where you can be reached. ABOUT YOUR MEDICATIONS: You will receive instructions on how to take your medicine on the prescription label you receive. Additional information may be provided by the Pharmacy. If you have questions afterwards, call the ED for clarification or further instructions. Some prescribed medications may cause drowsiness. Do not perform tasks such as driving a car or operating machinery without consulting your Pharmacist. If you feel you need a refill of pain medication, your condition will need re-evaluation. Please do not call for a refill of any medication. ABOUT YOUR SIGNATURE: Signature of this document acknowledges to followin. Understanding that you received emergency treatment and that you may be released before al medical problems are known or treated. Please be certain the ED has a correct phone number & address where you can be reached. 2. Acknowledgement that you will arrange for follow-up care as recommended. 3. Authorization for the Emergency Physician to provide information to your follow-up Physician in order to maximize your care. AT ANY TIME, IF YOUR SYMPTOMS CHANGE SIGNIFICANTLY OR WORSEN OR YOU DEVELOP NEW SYMPTOMS, RETURN TO THE EMERGENCY DEPARTMENT IMMEDIATELY FOR RE-EVALUATION. OUR GOAL IS TO PROVIDE EXCELLENT MEDICAL CARE! WE HOPE THAT WE HAVE MET YOUR EXPECTATIONS DURING YOUR EMERGENCY DEPARTMENT VISIT AND THAT YOU FEEL YOU HAVE RECEIVED EXCELLENT CARE! Prescriptions: Prednisone [Deltasone 20 mg Tablet] 1 tab PO BID 5 Days #10 tablet Gabapentin [Neurontin 100 mg Capsule] 100 mg PO Q12 #30 capsule
[2020-08-15 19:18] VITALS: BP 108/69
[2020-08-15] MEDS ORDERED: CEPHALEXIN 500 MG CAPSULE PO ONE (22:18)
== END 2020-08-15 19:33 | disposition home or self-care (01) ==
LOC: ER 12:22
DX: R20.0 Anesthesia of skin (principal); Z79.899 Other long term (current) drug therapy; Z87.891 Personal history of nicotine dependence
CPT/HCPCS: 99285; 96361; 96374; 96375; 36415; 84703; 85025; 80053; 93970; 73706 ×2; J1885; J1170; J7030; J1100